=== PATIENT | female | born 1945 | race African-American/Black ===

== ENCOUNTER 2016-08-15 20:35 | Emergency (ER) | payer OTHER ==
[~2016-08-15] VITALS: Ht 165.1 cm; Wt 130.0 kg
[~2016-08-15 20:35] MED LIST: ASPI81TA82 PO; ATOR10TA PO; CARD240C6 PO; CLOP75 PO; FATHER JOHNS PO; FLUT1INH INH; GLIP5TAB8 PO; HYDR-3533 PO; HYDR200T42 PO; METF850 PO; NITR-29 PO; POTA-243 PO; PROT40TA PO; SUCR1TAB PO; TOLT4 PO; TYLE3 PO; ZOFR4TAB3 PO
[2016-08-15 20:38] VITALS: BP 169/85; PULSE 96; RESP 20; TEMP 98.2; O2SAT 98
[2016-08-15] MEDS ORDERED: HYDR200T3 PO (21:07)
[2016-08-15] MEDS ORDERED: GLIP5TAB8 PO (21:07)
[2016-08-15] MEDS ORDERED: SUCR1TAB PO (21:07)
[2016-08-15] MEDS ORDERED: CARD120T4 PO (21:07)
[2016-08-15] MEDS ORDERED: FLUT1INH INH (21:07)
[2016-08-15] MEDS ORDERED: DILT-48 PO (21:07)
[2016-08-15] MEDS ORDERED: PLAV75TA29 PO (21:07)
[2016-08-15] MEDS ORDERED: METF850T PO (21:07)
[2016-08-15] MEDS ORDERED: CYCLOBENZAPRINE HCL 10 MG TAB PO ONE (21:15)
[2016-08-15] MEDS ORDERED: ONDANSETRON HCL 4 MG/2 ML VIAL IV PUSH ONE (21:15)
[2016-08-15] MEDS ORDERED: MORPHINE SULFATE 4 MG/ML INJ IV PUSH ONE (21:15)
--- NOTE | 2016-08-15 21:19 | PD ---
HPI Chief Complaint: Pain: Acute or Chronic Time Seen by Provider: 20:49 Travel History International Travel<30 days: No Contact w/Intl Traveler<30days: No Traveled to known affect area: No History of Present Illness HPI The patient is 70 year old female who presents to the [facility] emergency department with a history of neck pain that she reports began at 10 PM when she awakened to switch her position. She reports that she rolls over to switch her position every 2 hours. The patient reports that she then noticed a mild headache at the back of her head and neck pain. She reports that it has gradually been getting worse throughout the day today. She reports that it waxes and wanes in severity when she takes her usual pain medication for arthritis. She cannot recall the name of her pain medication, however according to the record she has been on Tylenol 3 in the past. She reports the pain medicine has helped, as well as rubbing the area. She reports that she last took Tylenol 3 at 4 PM. The patient additionally on review of systems reports having a mild dry cough. She denies having any other congestion. She also reports on review systems having a wound on the left lateral thigh that spontaneously appeared on . She reports that it appeared to be a blister that popped. She reports that she has been keeping it covered. She reports that the drainage was clear. She is unsure whether the area is improving or not. The patient has a prior history of cerebrovascular accident with residual weakness of the right upper and right lower extremity. She uses a cane to assist her with walking. The patient also reports having a history of an aneurysm in 1988 or , however she cannot recall when she had the stroke. The patient is unsure whether she had coiling or clubbing of her aneurysm. She reports that she does take a baby aspirin daily basis as well as Plavix daily. She reports taking both of her medications earlier today. She denies having any new difficulty speaking or new weakness of her extremities. She denies having any numbness or tingling of her extremities that is new. She denies having any new facial droop or dizziness. She denies having any new vision changes. The patient denies any history of fever,congestion, chest pain, shortness of breath, abdominal pain, vomiting, diarrhea, urinary symptoms, or neurologic symptoms. [facility] Past Medical History Narrative Medical The patient's past medical history is significant for a cerebrovascular accident with residual weakness of the right upper and right lower extremity with mild aphasia according to the record, hypertension, rheumatoid arthritis, chronic pain, diabetes mellitus, history of peptic ulcer disease, history of a brain aneurysm, history of COPD. Hx Anticoagulant Therapy: Yes (METFORMIN) Arthritis: Yes Asthma: No Blood Disorders: No Anxiety: No Depression: No Heart Rhythm Problems: No Cancer: No High Cholesterol: No Chemotherapy: No Chest Pain: No Congestive Heart Failure: No COPD: Yes Cerebrovascular Accident: Yes (residual right sided weakness(uses cane)) Diabetes: Yes Patient Takes Glucophage: No Diminished Hearing: No GERD: No Glaucoma: No Genitourinary: No Headaches: No Hepatitis: No Hiatal Hernia: No Hypertension: Yes Immune Disorder: No Implanted Vascular Access Dvce: Yes Kidney Stones: No Neurologic: Yes (1999 WITH WEAKNESS ON RT SIDE ) Psychiatric: No Reproductive: No Immunizations Current: Yes Migraines: No Myocardial Infarction: No Radiation Therapy: No Renal Failure: No Seizures: No Sickle Cell Disease: No Sleep Apnea: No Thyroid Disease: No Ulcer: No Menopausal: Yes Past Surgical History Narrative Surgical The patient's past surgical history is significant for bilateral knee replacements, hysterectomy, right rotator cuff repair. Abdominal Surgery: No AICD: No Appendectomy: No Arteriovenous Shunt: No Cardiac Surgery: No Cholecystectomy: No Ear Surgery: No Endocrine Surgery: Yes Eye Surgery: Yes (RT CATARACT SURGERY WITH LENS IMPLANT) Genitourinary Surgery: No Gynecologic Surgery: Yes (HYSTERECTOMY) Hysterectomy: Yes Insulin Pump: No Joint Replacement: Yes (BILAT KNEE REPLACEMENT) Oral Surgery: No Pacemaker: No Thoracic Surgery: No Other Surgery: Yes Social History Alcohol Use: No Tobacco Use: No (quit 22 yrs ago) Substance Use: No Allergies-Medications (Allergen,Severity, Reaction): Coded Allergies: Aspirin (Verified Allergy, Intermediate, GI BLEED, 08/15/16) *MDRO Multi-Drug Resistant Organism (Verified Allergy, Unknown, 08/15/16) MRSA 08/2013 MRSA PCR screen positive - 10/06/15 Reported Meds & Prescriptions Reported Meds & Active Scripts Active Flexeril (Cyclobenzaprine HCl) 10 Mg Tab 10 Mg PO TID PRN Reported Metformin (Metformin HCl) 850 Mg Tab 850 Mg PO TID With a meal Diltiazem ER 24 HR 240 Mg Caper 240 Mg PO DAILY Cardizem (Diltiazem HCl) 120 Mg Tab 120 Mg PO QID Glipizide 5 Mg Tab 5 Mg PO DAILY Take 30 minutes before a meal Hydroxychloroquine (Hydroxychloroquine Sulfate) 200 Mg Tab 200 Mg PO DAILY Takw with food Breo Ellipta Inh (Fluticasone/Vilanterol) 100-25 Mcg/Act Inh 1 Puff INH DAILY Use daily at the same time. Plavix (Clopidogrel Bisulfate) 75 Mg Tab 75 Mg PO DAILY Sucralfate 1 Gm Tab 1 Gm PO QID on empty stomach [Father Rachel] 10 Ml PO Q4HR PRN Review of Systems Except as stated in HPI: all other systems reviewed are Neg General / Constitutional: No: Fever Eyes: No: Visual changes HENT: Positive: Neck Stiffness, Neck Pain, No: Headaches, Rhinorrhea, Congestion, Earache Cardiovascular: No: Chest Pain or Discomfort Respiratory: No: Shortness of Breath Gastrointestinal: No: Abdominal Pain Genitourinary: No: Dysuria Musculoskeletal: No: Pain Skin: Positive Rash Neurologic: Positive: Focal Abnormalities (chronic and no worse than usual), No: Weakness, Coordination Problem, Tremor, Change in Mentation, Slurred Speech , Incontinence, Sensory Disturbance Psychiatric: No: Depression Endocrine: No: Polydipsia Hematologic/Lymphatic: No: Easy Bruising Physical Exam Narrative General: The patient is a well-developed well-nourished female, uncomfortable appearing on arrival, reporting neck discomfort. Head and Neck exam: Head is normocephalic atraumatic. Eyes: EOMI, pupils are equal round and reactive to light. Nose: Midline septum with pink mucous membranes Mouth: Dentition unremarkable. Moist mucus membranes. Posterior oropharynx is not erythematous. No tonsillar hypertrophy. Uvula midline. Airway patent. Neck: No palpable lymphadenopathy. No nuchal rigidity. No thyromegaly. The patient reports having tenderness in the paraspinal muscles with decreased range of motion with turning her head, reportedly related to muscle pain. Cardiovascular: Regular rate and rhythm without murmurs, gallops, or rubs. Lungs: Clear to auscultation bilaterally. No wheezes, rhonchi, or rales. Abdomen: Soft, without tenderness to palpation in all 4 quadrants of the abdomen. No guarding, rebound, or rigidity. Normal bowel sounds are audible. No tenderness on palpation of McBurney's point. Extremities: No clubbing, cyanosis, or edema. 2+ pulses in all 4 extremities. The patient on examination of the left upper thigh is noted to have a Band-Aid in place. This was removed and the patient is noted to have an area of erythema and peeling skin with slight tenderness on palpation along with discoloration to the bandage from prior drainage. A wound culture was collected. There is no surrounding edema, minimal erythema. No warmth on palpation. No crepitus or step-off. Back: No spinous process tenderness to palpation. No costovertebral angle tenderness to palpation. Neurologic Exam: The patient is currently at her baseline for her neurologic exam according to her history, and according to the patient herself is providing her history. The patient has mild right upper and right lower extremity weakness from a prior stroke. The patient is oriented to person, place, time, and situation. The patient has no obvious difficulty speaking on exam. Skin Exam: No rash noted. Intact skin that is warm and dry. Data Data Last Documented VS Vital Signs Date Time Temp Pulse Resp B/P Pulse Ox O2 Delivery O2 Flow Rate FiO2 08/16/16 01:40 89 20 164/108 95 Nasal Cannula 2 08/15/16 20:38 98.2 Orders Electrocardiogram (08/15/16 21:06) Complete Blood Count With Diff (08/15/16 21:06) Comprehensive Metabolic Panel (08/15/16 21:06) Prothrombin Time / Inr (Pt) (08/15/16 21:06) Act Partial Throm Time (Ptt) (08/15/16 21:06) Lactic Acid Sepsis Protocol (08/15/16 21:06) Magnesium (Mg) (08/15/16 21:06) Urinalysis - C+S If Indicated (08/15/16 21:06) Blood Culture (08/15/16 21:06) Wound Culture And Gram Stain (08/15/16 21:06) Chest, Single Ap (08/15/16 21:06) Blood Glucose (08/15/16 21:06) Ecg Monitoring (08/15/16 21:06) Iv Access Insert/Monitor (08/15/16 21:06) Cath For Specimen (08/15/16 21:06) Oximetry (08/15/16 21:06) Oxygen Administration (08/15/16 21:06) Ct Brain W/O Iv Contrast(Rout) (08/15/16 21:06) Ct Cerv Spine W/O Contrast (08/15/16 21:06) C-Reactive Protein (Crp) (08/15/16 21:06) Thyroid Stimulating Hormone (08/15/16 21:06) Morphine Inj (Morphine Inj) (08/15/16 21:15) Ondansetron Inj (Zofran Inj) (08/15/16 21:15) Cyclobenzaprine (Flexeril) (08/15/16 21:15) Sodium Chlor 0.9% 1000 Ml Inj (Ns 1000 M (08/15/16 21:30) Sodium Chlor 0.9% 1000 Ml Inj (Ns 1000 M (08/15/16 23:00) Labs Laboratory Tests Test 08/15/16 08/15/16 08/16/16 21:30 22:22 00:46 White Blood Count 10.2 TH/MM3 Red Blood Count 4.13 MIL/MM3 Hemoglobin 11.2 GM/DL Hematocrit 34.5 % Mean Corpuscular Volume 83.5 FL Mean Corpuscular Hemoglobin 27.0 PG Mean Corpuscular Hemoglobin 32.3 % Concent Red Cell Distribution Width 16.4 % Platelet Count 473 TH/MM3 Mean Platelet Volume 7.9 FL Neutrophils (%) (Auto) 69.9 % Lymphocytes (%) (Auto) 17.4 % Monocytes (%) (Auto) 7.7 % Eosinophils (%) (Auto) 4.2 % Basophils (%) (Auto) 0.8 % Neutrophils # (Auto) 7.1 TH/MM3 Lymphocytes # (Auto) 1.8 TH/MM3 Monocytes # (Auto) 0.8 TH/MM3 Eosinophils # (Auto) 0.4 TH/MM3 Basophils # (Auto) 0.1 TH/MM3 CBC Comment DIFF FINAL Differential Comment Hematology Comments Prothrombin Time 11.1 SEC Prothromb Time International 1.0 RATIO Ratio Activated Partial 26.9 SEC Thromboplast Time Sodium Level 137 MEQ/L Potassium Level 3.6 MEQ/L Chloride Level 98 MEQ/L Carbon Dioxide Level 30.2 MEQ/L Anion Gap 9 MEQ/L Blood Urea Nitrogen 12 MG/DL Creatinine 0.84 MG/DL Estimat Glomerular Filtration 81 ML/MIN Rate Random Glucose 164 MG/DL Calcium Level 9.4 MG/DL Magnesium Level 1.4 MG/DL Total Bilirubin 0.2 MG/DL Aspartate Amino Transf 14 U/L (AST/SGOT) Alanine Aminotransferase 12 U/L (ALT/SGPT) Alkaline Phosphatase 156 U/L C-Reactive Protein 2.10 MG/DL Total Protein 7.8 GM/DL Albumin 3.1 GM/DL Thyroid Stimulating Hormone 1.670 uIU/ML 3rd Gen Lactic Acid Level 2.2 mmol/L 1.3 mmol/L Urine Color YELLOW Urine Turbidity CLEAR Urine pH 7.0 Urine Specific Archie 1.020 Urine Protein 30 mg/dL Urine Glucose (UA) NEG mg/dL Urine Ketones NEG mg/dL Urine Occult Blood NEG Urine Nitrite NEG Urine Bilirubin NEG Urine Urobilinogen 2.0 MG/DL Urine Leukocyte Esterase NEG Urine RBC 1 /hpf Urine WBC 1 /hpf Urine Squamous Epithelial 6 /hpf Cells Urine Mucus FEW /lpf Microscopic Urinalysis Comment CULT NOT INDICATED MDM Medical Decision Making Medical Screen Exam Complete: Yes Emergency Medical Condition: Yes Medical Record Reviewed: Yes Differential Diagnosis Neck pain related to rheumatoid arthritis, versus subarachnoid hemorrhage, versus meningitis, versus musculoskeletal strain Narrative Course During the course of the patients emergency department visit, the patients history, examination, and differential diagnosis were reviewed with the patient. The patient had IV access obtained and blood work sent for analysis. The patient was placed on a foil cutter with oximetry and blood pressure monitoring. An EKG was ordered. A CT scan of the head and neck was ordered. An EKG is done on arrival that shows a sinus rhythm heart rate of 96, nonspecific T-wave abnormalities. No acute ST segment elevation or depression. The patient was provided morphine 4 mg IV, Zofran for nausea. The patient was started on normal saline IV fluids. The patient was given Flexeril 10 mg by mouth 1. The patients laboratory studies were reviewed and remarkable for a CBC that is unremarkable. CMP is remarkable for a glucose of 164, magnesium 1.4, AST 14, alkaline phosphatase 156, C-reactive protein 2.10, albumin 3.1, TSH 1.67, PT PTT within normal limits, urinalysis unremarkable. Lactic acid was 2.2. This was repeated after a liter of normal saline IV fluids and was down to 1.3. Radiology studies were reviewed and remarkable for a chest x-ray that shows cardiomegaly and a hiatal hernia, no other acute abnormality. The patient was reexamined. The patient had increased range of motion of her neck. The patient's results were discussed with her. The patient will be discharged home to continue on her current pain medication that she cannot recall the name of, and she was additionally given a prescription for Flexeril to be taken as needed for muscle spasms. She was instructed regarding the importance of following up with her primary care physician in the next 2 days for reexamination for improvement. The patient is resting comfortably and feels better, is alert and in no distress. The patients results and examination findings were discussed with her. The repeat examination is unremarkable and benign. The history, exam, diagnostic testing, and current condition do not suggest any significant pathology to warrant further testing, continued ED treatment, admission, or surgical evaluation at this point. The vital signs have been stable. The patient does not have uncontrollable pain, intractable vomiting, or other significant symptoms. The patient's condition is stable and appropriate for discharge. The patient will pursue further outpatient evaluation with a primary care physician or other designated or consulting physician as indicated in the discharge instructions. The patient expressed understanding and was agreeable with this plan. Diagnosis Primary Impression: Neck pain Additional Impression: Muscle spasm Referrals: Primary Care Physician 2 days Patient Instructions: Arthritis (ED), General Instructions, Muscle Spasm (ED), Neck Pain (ED) Med/Other Pt SpecificInfo: Prescription(s) given Scripts Cyclobenzaprine (Flexeril)10 Mg Tab10 Mg PO TID PRN (SPASM) #12 TAB Ref 0 Prov:Jessa Gonzáles MD 08/16/16 Disposition: 01 DISCHARGE HOME Condition: Stable Jessa Gonzáles MD Aug 15, 2016 21:19
[2016-08-15] MEDS ORDERED: SODIUM CHLOR 0.9% 1000 ML INJ 1,000 ML IV SCH (21:30)
[2016-08-15 21:36] VITALS: BP 176/96; PULSE 94; RESP 20; O2SAT 98
--- NOTE | 2016-08-15 21:50 | RADRPT ---
EXAM DATE/TIME: 08/15/2016 21:23 [facility] COMPARISON: CHEST SINGLE AP, February 21, 2012, 6:20. CHEST SINGLE AP, October 05, 2015, 13:51. INDICATIONS : Cough. MEDICAL HISTORY : Hypertension. SURGICAL HISTORY : None. ENCOUNTER: Initial ACUITY: 1 week PAIN SCORE: 0/10 LOCATION: Bilateral chest FINDINGS: A single view of the chest demonstrates the lungs to be symmetrically aerated without evidence of mas s, infiltrate or effusion. Nodularity involving the right hilum is long-term stable and likely relate s to the patient's pulmonary vasculature. The heart is mildly enlarged. A retrocardiac density consis tent with a hiatal hernia. Osseous structures are intact. A right humeral head prosthesis. 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 CONCLUSION: 1. Cardiomegaly. 2. Hiatal hernia. Damion French Jr., MD on August 15, 2016 at 21:48 Board Certified Radiologist. This report was verified electronically.
--- NOTE | 2016-08-15 22:20 | RADRPT ---
EXAM DATE/TIME: 08/15/2016 21:51 [facility] COMPARISON: CT BRAIN W/O CONTRAST, October 05, 2015, 13:44. INDICATIONS : Headache with no known injury. RADIATION DOSE: 56.35 CTDIvol (mGy) MEDICAL HISTORY : Hypertension. Chronic obstructive pulmonary disease. Diabetes mellitus type 2. SURGICAL HISTORY : Hysterectomy. Total knee replacement, left.Total knee replacement, right. ENCOUNTER: Initial ACUITY: 1 day PAIN SCALE: 7/10 LOCATION: cranial TECHNIQUE: Multiple contiguous axial images were obtained of the head. Using automated exposure control and adj ustment of the mA and/or kV according to patient size, radiation dose was kept as low as reasonably a chievable to obtain optimal diagnostic quality images. FINDINGS: CEREBRUM: Periventricular low attenuation change involving both cerebral hemispheres. This also involves the in sular cortex on the left. Appearance is stable. Small chronic lacunar infarction involving the right thalamus. This is unchanged as well. The ventricles are normal for age. No evidence of midline shift , mass lesion, hemorrhage or acute infarction. No extra-axial fluid collections are seen. POSTERIOR FOSSA: The cerebellum and brainstem are intact. The 4th ventricle is midline. The cerebellopontine angle i s unremarkable. EXTRACRANIAL: The visualized portion of the orbits is intact. SKULL: The calvaria is intact. No evidence of skull fracture. CONCLUSION: 1. No acute intracranial abnormality. 2. Chronic small vessel ischemic change. Damion French Jr., MD on August 15, 2016 at 22:16 Board Certified Radiologist. This report was verified electronically.
--- NOTE | 2016-08-15 22:26 | RADRPT ---
EXAM DATE/TIME: 08/15/2016 21:51 [facility] COMPARISON: No previous studies available for comparison. INDICATIONS : Neck pain with no known injury. RADIATION DOSE: 38.51 CTDIvol (mGy) MEDICAL HISTORY : Hypertension. Chronic obstructive pulmonary disease. Diabetes mellitus type 2. SURGICAL HISTORY : Hysterectomy. Total knee replacement, left.Total knee replacement, right. ENCOUNTER: Initial ACUITY: 1 day PAIN SCALE: 7/10 LOCATION: neck TECHNIQUE: Volumetric scanning of the cervical spine was performed. Multiplanar reconstructions in the sagittal, coronal and oblique axial planes were performed. Using automated exposure control and adjustment o f the mA and/or kV according to patient size, radiation dose was kept as low as reasonably achievable to obtain optimal diagnostic quality images. FINDINGS: VERTEBRAE: Normal vertebral body height. ALIGNMENT: No evidence of subluxation. Straightening of the cervical spine noted. C2-C3: The bony spinal canal is normal in size. No evidence of disc bulge or herniation. The neural forami na are bilaterally patent. C3-C4: A mild broad-based disc bulge eccentric to the right chest touches the ventral portion of the cord. B sylvain uncovertebral hypertrophy without neural foraminal narrowing. C4-C5: A broad-based disc osteophyte complex flattens the ventral portion of the cord more pronounced toward s the right. Prominent bony uncovertebral hypertrophy noted degenerating narrowing of the right later al recess and both neural foramen. A small amount of air is seen within the left lateral recess as we ll as the disc space. This is felt to be degenerative in nature. C5-C6: A mild broad-based disc osteophyte complex flattens the ventral portion of the thecal sac and approac hes the ventral portion of the cord. There is narrowing of the right lateral recess and both neural f oramen. Bony uncovertebral hypertrophy. C6-C7: A central disc bulge. Abutment of the cord. Neural foramen are patent. C7-T1: The bony spinal canal is normal in size. No evidence of disc bulge or herniation. The neural forami na are bilaterally patent. CONCLUSION: 1. No fracture or dislocation. 2. Multilevel degenerative changes. Each level detailed in the above discussion. Damion French Jr., MD on August 15, 2016 at 22:18 Board Certified Radiologist. This report was verified electronically.
[2016-08-15 22:38] LABS: APTT (PATIENT) 26.9 SEC (24.3-30.1); PROTHROMBIN TIME - PATIENT 11.1 SEC (9.8-11.6)
[2016-08-15 22:47] LABS: BLOOD, URINE NEG (NEG); COMMENT (UR) CULT NOT INDICATED; CULTURE IF INDICATED CULT NOT INDICATED; GLUCOSE,URINE NEG (NEG); KETONE, URINE NEG (NEG); MUCUS URINE FEW /lpf (OCC); NITRITE,URINE NEG (NEG); SQUAMOUS EPITHELIAL CELL URINE 6 /hpf (0-5); URINE COLOR YELLOW (YELLW/STRAW)
[2016-08-15 22:50] LABS: ALKALINE PHOSPHATASE 156 U/L (45-117); ALT (GPT) 12 U/L (10-53); ANION GAP 9 MEQ/L (5-15); AST (GOT) 14 U/L (15-37); BICARBONATE 30.2 MEQ/L (21.0-32.0); BLOOD UREA NITROGEN 12 MG/DL (7-18); CHLORIDE 98 MEQ/L (98-107); GLOMERULAR FILTRATION RATE 81 ML/MIN (>89); MAGNESIUM 1.4 MG/DL (1.5-2.5); POTASSIUM 3.6 MEQ/L (3.5-5.1); SODIUM (NA) 137 MEQ/L (136-145); TOTAL BILIRUBIN ADULT 0.2 MG/DL (0.2-1.0)
[2016-08-15 22:55] LABS: AUTOMATED NEUTROPHIL # 7.1 TH/MM3 (1.8-7.7); BASOPHIL # 0.1 TH/MM3 (0-0.2); BASOPHIL % 0.8 % (0.0-2.0); EOSINOPHIL # 0.4 TH/MM3 (0-0.4); EOSINOPHIL % 4.2 % (0.0-4.0); HEMATOCRIT 34.5 % (35.0-46.0); LYMPH % 17.4 % (9.0-44.0); LYMPHOCYTE # 1.8 TH/MM3 (1.0-4.8); MEAN CELL VOLUME 83.5 FL (80.0-100.0); MEAN CORPUSCULAR HGB CONC 32.3 % (32.0-36.0); MONO % 7.7 % (0.0-8.0); NEUT % 69.9 % (16.0-70.0); PLATELET COUNT 473 TH/MM3 (150-450); RED BLOOD COUNT 4.13 MIL/MM3 (4.00-5.30); RED CELL DISTRIBUTION WIDTH 16.4 % (11.6-17.2); WHITE BLOOD COUNT 10.2 TH/MM3 (4.0-11.0)
[2016-08-15 22:56] LABS: HEMO FLAGS DIFF FINAL
[2016-08-15] MEDS ORDERED: SODIUM CHLOR 0.9% 1000 ML INJ 1,000 ML IV ONE (23:00)
[2016-08-15 23:05] VITALS: BP 163/83; PULSE 88; RESP 20; O2SAT 94
[2016-08-16 00:15] LABS: LACTIC ACID GHOST NOT REPORTABLE
[2016-08-16] MEDS ORDERED: CYCL1TAB29 PO (01:35)
[2016-08-16 01:40] VITALS: BP 164/108; PULSE 89; RESP 20; O2SAT 95
--- NOTE | 2016-08-16 18:26 | EKG ---
Date Performed: 08/15/2016 Time Performed: 21:27:18 PTAGE: 70 years EKG: Sinus rhythm NONSPECIFIC T-WAVE ABNORMALITY Since previous tracing, no significant change noted BORDERLINE ECG PREVIOUS TRACING 10/05/2015 @14.38.58 DOCTOR: Ladonna Arora Interpretating Date/Time 08/16/2016 18:25:38
== END 2016-08-16 02:23 | disposition home or self-care (01) ==
LOC: NEPE 20:35
DX: M62.838 Other muscle spasm (principal); S70.322A Blister (nonthermal), left thigh, initial encounter; Z79.01 Long term (current) use of anticoagulants; E11.9 Type 2 diabetes mellitus without complications; J44.9 Chronic obstructive pulmonary disease, unspecified; Z86.73 Personal history of transient ischemic attack (TIA), and cerebral infarction without residual deficits; B95.62 Methicillin resistant Staphylococcus aureus infection as the cause of diseases classified elsewhere
CPT/HCPCS: 70450; 71010; 72125; 80053; 81001; 83605; 83735; 84443; 85025; 85610; 85730; 86140; 86403; 87040; 87070; 87186; 93005; 96361; 96374; 96375; 99284; J2270; J2405; J7030; 87205

== ENCOUNTER 2016-10-11 13:38 | Inpatient (IN) | payer OTHER, MEDICARE ==
[~2016-10-11] VITALS: Ht 170.2 cm; Wt 105.8 kg
[2016-10-11] VITALS (7 sets, daily range): BP systolic 130–159; BP diastolic 65–110; PULSE 81–101; RESP 16–25; TEMP 97.7–98.8; O2SAT 93–98
[2016-10-11] MEDS: INSULIN NovoLIN REGULAR SUPPLEMENTAL SCALE SQ SCH
[~2016-10-11 13:38] MED LIST changes: -ASPI81TA82 PO; -ATOR10TA PO; +CARD120T4 PO; -CARD240C6 PO; -CLOP75 PO; +CYCL1TAB29 PO; +DILT-48 PO; -HYDR-3533 PO; +HYDR200T3 PO; -HYDR200T42 PO; -METF850 PO; +METF850T PO; -NITR-29 PO; +PLAV75TA29 PO; -POTA-243 PO; -PROT40TA PO; -TOLT4 PO; -TYLE3 PO; -ZOFR4TAB3 PO
--- NOTE | 2016-10-11 14:43 | PD ---
HPI Chief Complaint: GI Complaint Time Seen by Provider: 14:35 Travel History International Travel<30 days: No Contact w/Intl Traveler<30days: No Traveled to known affect area: No History of Present Illness HPI 71-year-old female presents with her grandson for evaluation of nausea and vomiting. The patient reports that yesterday she felt fine. In the middle night she developed some nausea and then today she vomited. She reports 4 episodes of emesis today, dark red in color, concern for hematemesis. She is currently mildly nauseous. She denies any abdominal pain, chest pain or shortness of breath, dizziness or lightheadedness, diarrhea, melena, hematochezia. The grandson who is with her does report that several years ago that she was told she has peptic ulcer disease. She reports that she is on a blood thinner but she does not remember the name of it. She denies any dietary indiscretions. She has no other complaints. Her primary care physician is Dr. Carmichael. 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)) Diabetes: Yes Diminished Hearing: No GERD: No Glaucoma: No Genitourinary: No Headaches: No Hepatitis: No Hiatal Hernia: No Hypertension: Yes Immune Disorder: No Implanted Vascular Access Dvce: Yes Kidney Stones: No Neurologic: Yes (1999 WITH WEAKNESS ON RT SIDE ) Psychiatric: No Reproductive: No Immunizations Current: Yes Migraines: No Myocardial Infarction: No Radiation Therapy: No Renal Failure: No Seizures: No Sickle Cell Disease: No Sleep Apnea: No Thyroid Disease: No Ulcer: No Menopausal: Yes Past Surgical History Abdominal Surgery: No AICD: No Appendectomy: No Arteriovenous Shunt: No Cardiac Surgery: No Cholecystectomy: No Ear Surgery: No Endocrine Surgery: Yes Eye Surgery: Yes (RT CATARACT SURGERY WITH LENS IMPLANT) Genitourinary Surgery: No Gynecologic Surgery: Yes (HYSTERECTOMY) Hysterectomy: Yes Insulin Pump: No Joint Replacement: Yes (BILAT KNEE REPLACEMENT) Oral Surgery: No Pacemaker: No Thoracic Surgery: No Other Surgery: Yes Social History Alcohol Use: No Tobacco Use: No (quit 22 yrs ago) Substance Use: No Allergies-Medications (Allergen,Severity, Reaction): Coded Allergies: Aspirin (Verified Allergy, Intermediate, GI BLEED, 10/11/16) *MDRO Multi-Drug Resistant Organism (Verified Allergy, Unknown, 10/11/16) 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 Plavix (Clopidogrel Bisulfate) 75 Mg Tab 75 Mg PO DAILY Sucralfate 1 Gm Tab 1 Gm PO QID on empty stomach [Father Rachel] 10 Ml PO Q4HR PRN Review of Systems Except as stated in HPI: all other systems reviewed are Neg Physical Exam Narrative GENERAL: Well-developed well-nourished female in no acute distress SKIN: Warm and dry. HEAD: Atraumatic. Normocephalic. EYES: Pupils equal and round. No scleral icterus. No injection or drainage. ENT: No nasal bleeding or discharge. Mucous membranes pink and moist. NECK: Trachea midline. No JVD. CARDIOVASCULAR: Regular rate and rhythm. No murmur appreciated. RESPIRATORY: No accessory muscle use. Clear to auscultation. Breath sounds equal bilaterally. GASTROINTESTINAL: Abdomen soft, non-tender, nondistended. Hepatic and splenic margins not palpable. MUSCULOSKELETAL: No obvious deformities. No clubbing. No cyanosis. No edema. NEUROLOGICAL: Awake and alert. No obvious cranial nerve deficits. Motor grossly within normal limits. flattening of the right facial nasolabial folds secondary to previous CVA. Normal speech. 4-5 muscle strength in the right upper and lower extremity secondary to previous CVA. PSYCHIATRIC: Appropriate mood and affect; insight and judgment normal. Data Data Last Documented VS Vital Signs Date Time Temp Pulse Resp B/P Pulse Ox O2 Delivery O2 Flow Rate FiO2 10/11/16 14:26 98.4 95 19 130/67 95 Room Air Orders Complete Blood Count With Diff (10/11/16 14:43) Comprehensive Metabolic Panel (10/11/16 14:43) Prothrombin Time / Inr (Pt) (10/11/16 14:43) Act Partial Throm Time (Ptt) (10/11/16 14:43) Type And Screen (10/11/16 14:43) Labs Laboratory Tests Test 10/11/16 14:40 White Blood Count 11.1 TH/MM3 Red Blood Count 2.95 MIL/MM3 Hemoglobin 8.0 GM/DL Hematocrit 25.5 % Mean Corpuscular Volume 86.3 FL Mean Corpuscular Hemoglobin 27.1 PG Mean Corpuscular Hemoglobin 31.4 % Concent Red Cell Distribution Width 17.5 % Platelet Count 339 TH/MM3 Mean Platelet Volume 7.8 FL Neutrophils (%) (Auto) 83.0 % Lymphocytes (%) (Auto) 10.3 % Monocytes (%) (Auto) 5.0 % Eosinophils (%) (Auto) 1.0 % Basophils (%) (Auto) 0.7 % Neutrophils # (Auto) 9.2 TH/MM3 Lymphocytes # (Auto) 1.1 TH/MM3 Monocytes # (Auto) 0.6 TH/MM3 Eosinophils # (Auto) 0.1 TH/MM3 Basophils # (Auto) 0.1 TH/MM3 CBC Comment DIFF FINAL Differential Comment Prothrombin Time 11.4 SEC Prothromb Time International 1.0 RATIO Ratio Activated Partial 22.8 SEC Thromboplast Time Sodium Level 142 MEQ/L Potassium Level 3.6 MEQ/L Chloride Level 105 MEQ/L Carbon Dioxide Level 29.0 MEQ/L Anion Gap 8 MEQ/L Blood Urea Nitrogen 34 MG/DL Creatinine 0.74 MG/DL Estimat Glomerular Filtration 94 ML/MIN Rate Random Glucose 95 MG/DL Calcium Level 9.4 MG/DL Total Bilirubin 0.3 MG/DL Aspartate Amino Transf 6 U/L (AST/SGOT) Alanine Aminotransferase 11 U/L (ALT/SGPT) Alkaline Phosphatase 140 U/L Total Protein 6.8 GM/DL Albumin 3.3 GM/DL MDM Medical Decision Making Medical Screen Exam Complete: Yes Emergency Medical Condition: Yes Medical Record Reviewed: Yes Differential Diagnosis Upper GI bleed, lower GI bleed, gastroenteritis, dehydration Narrative Course 71-year-old female with 4 episodes of emesis this morning, dark red in color, history of peptic ulcer disease. The patient was initially seen in triage. Workup was initiated. She will be moved to medical bed when one becomes available. Terrell Yanez Oct 11, 2016 14:43
[2016-10-11 15:12] LABS: AUTOMATED NEUTROPHIL # 9.2 TH/MM3 (1.8-7.7); BASOPHIL # 0.1 TH/MM3 (0-0.2); BASOPHIL % 0.7 % (0.0-2.0); EOSINOPHIL # 0.1 TH/MM3 (0-0.4); HEMATOCRIT 25.5 % (35.0-46.0); HEMO FLAGS DIFF FINAL; LYMPH % 10.3 % (9.0-44.0); LYMPHOCYTE # 1.1 TH/MM3 (1.0-4.8); MEAN CELL VOLUME 86.3 FL (80.0-100.0); MEAN CORPUSCULAR HEMOGLOBIN 27.1 PG (27.0-34.0); MEAN CORPUSCULAR HGB CONC 31.4 % (32.0-36.0); PLATELET COUNT 339 TH/MM3 (150-450); RED BLOOD COUNT 2.95 MIL/MM3 (4.00-5.30); RED CELL DISTRIBUTION WIDTH 17.5 % (11.6-17.2); WHITE BLOOD COUNT 11.1 TH/MM3 (4.0-11.0)
[2016-10-11 15:26] LABS: APTT (PATIENT) 22.8 SEC (24.3-30.1); PROTHROMBIN TIME - PATIENT 11.4 SEC (9.8-11.6)
[2016-10-11 15:27] LABS: ALT (GPT) 11 U/L (10-53); ANION GAP 8 MEQ/L (5-15); AST (GOT) 6 U/L (15-37); BLOOD UREA NITROGEN 34 MG/DL (7-18); CHLORIDE 105 MEQ/L (98-107); GLOMERULAR FILTRATION RATE 94 ML/MIN (>89); POTASSIUM 3.6 MEQ/L (3.5-5.1); SODIUM (NA) 142 MEQ/L (136-145)
[2016-10-11 15:29] LABS: ALKALINE PHOSPHATASE 140 U/L (45-117); TOTAL BILIRUBIN ADULT 0.3 MG/DL (0.2-1.0)
[2016-10-11] MEDS ORDERED: SODIUM CHLOR 0.9% 250 ML INJ 250 ML IV ONE (15:45)
--- NOTE | 2016-10-11 15:46 | PD ---
Physical Exam Time Seen by Provider: 15:46 Narrative Patient seen by provider in triage and initiated workup, please see his documentation. 71-year-old female with a history of hypertension, hyperlipidemia, diabetes, CVA, peptic ulcer disease presents to the emergency department with her grandson for evaluation of nausea and vomiting. Patient states that last night and this morning she felt very nauseous and that about noon today she had 4 episodes of emesis with dark red blood. States that since then she has still felt nauseous but had no further episodes of vomiting. She denies abdominal pain, diarrhea, constipation, bloody stool, black stool, chest pain, shortness of breath, lightheadedness, dizziness. She does take Plavix. She had a history of GI bleed in the past about [address] Carmichael. GENERAL: Well-nourished and well-developed pleasant female patient in no acute distress. SKIN: Warm and dry. HEAD: Normocephalic and atraumatic. EYES: No injection, drainage, or hyphema noted. PERRLA. EOMI. ENT: No nasal drainage noted. Oropharynx is clear. NECK: Supple and the trachea is midline. CARDIOVASCULAR: Regular rate and rhythm. RESPIRATORY: Breath sounds are equal bilaterally with no accessory muscle use, wheezing, rhonchi, or crackles. GASTROINTESTINAL: Abdomen is soft, non-tender, and nondistended. MUSCULOSKELETAL: No obvious deformities, swelling, cyanosis, or ecchymosis is present throughout the upper and lower extremities. Patient has full range of motion without any signs of neurovascular compromise. RECTAL EXAM: No masses or tenderness, stool is black. Performed in the presence of Paula MANN. NEUROLOGICAL: Awake, alert, and oriented. Normal speech and gait. Cranial nerves are grossly intact. Data Data Last Documented VS Vital Signs Date Time Temp Pulse Resp B/P Pulse Ox O2 Delivery O2 Flow Rate FiO2 10/11/16 15:34 101 19 153/84 97 Room Air 10/11/16 14:26 98.4 Orders Complete Blood Count With Diff (10/11/16 14:43) Comprehensive Metabolic Panel (10/11/16 14:43) Prothrombin Time / Inr (Pt) (10/11/16 14:43) Act Partial Throm Time (Ptt) (10/11/16 14:43) Type And Screen (10/11/16 14:43) Red Blood Cells (Rbc) (10/11/16 15:44) Blood Product Administration .UPON TRANSFUSION (10/11/16 15:44) Sodium Chlor 0.9% 250 Ml Inj (Ns 250 Ml (10/11/16 15:45) Iv Access Insert/Monitor (10/11/16 15:51) Ondansetron Inj (Zofran Inj) (10/11/16 16:00) Sodium Chlor 0.9% 1000 Ml Inj (Ns 1000 M (10/11/16 15:51) Sodium Chloride 0.9% Flush (Ns Flush) (10/11/16 16:00) Pantoprazole Inj (Protonix Inj) (10/11/16 16:00) Pantoprazole Inj (Protonix Inj) (10/11/16 16:00) NPO (10/11/16 16:03) Consult Gastroenterology (10/11/16 ) Labs Laboratory Tests Test 10/11/16 10/11/16 10/11/16 14:40 14:55 15:53 White Blood Count 11.1 TH/MM3 Red Blood Count 2.95 MIL/MM3 Hemoglobin 8.0 GM/DL Hematocrit 25.5 % Mean Corpuscular Volume 86.3 FL Mean Corpuscular Hemoglobin 27.1 PG Mean Corpuscular Hemoglobin 31.4 % Concent Red Cell Distribution Width 17.5 % Platelet Count 339 TH/MM3 Mean Platelet Volume 7.8 FL Neutrophils (%) (Auto) 83.0 % Lymphocytes (%) (Auto) 10.3 % Monocytes (%) (Auto) 5.0 % Eosinophils (%) (Auto) 1.0 % Basophils (%) (Auto) 0.7 % Neutrophils # (Auto) 9.2 TH/MM3 Lymphocytes # (Auto) 1.1 TH/MM3 Monocytes # (Auto) 0.6 TH/MM3 Eosinophils # (Auto) 0.1 TH/MM3 Basophils # (Auto) 0.1 TH/MM3 CBC Comment DIFF FINAL Differential Comment Prothrombin Time 11.4 SEC Prothromb Time International 1.0 RATIO Ratio Activated Partial 22.8 SEC Thromboplast Time Sodium Level 142 MEQ/L Potassium Level 3.6 MEQ/L Chloride Level 105 MEQ/L Carbon Dioxide Level 29.0 MEQ/L Anion Gap 8 MEQ/L Blood Urea Nitrogen 34 MG/DL Creatinine 0.74 MG/DL Estimat Glomerular Filtration 94 ML/MIN Rate Random Glucose 95 MG/DL Calcium Level 9.4 MG/DL Total Bilirubin 0.3 MG/DL Aspartate Amino Transf 6 U/L (AST/SGOT) Alanine Aminotransferase 11 U/L (ALT/SGPT) Alkaline Phosphatase 140 U/L Total Protein 6.8 GM/DL Albumin 3.3 GM/DL Blood Type AB POSITIVE Antibody Screen NEGATIVE Crossmatch Leukocyte-Reduced Red Blood Cells Blood Bank Comment MDM Supervised Visit with JODI: No Differential Diagnosis GI bleed versus upper versus lower versus anemia versus gastroenteritis Narrative Course 71-year-old female presents to the emergency department for evaluation of nausea and vomiting with hematemesis for 1 day. Patient is afebrile, she is slightly tachycardic with a heart rate of around 100 bpm. Otherwise vital signs are stable. Physical exam reveals dark black stool that is guaiac positive. On her jeans she has vomit that is dark red. Labs were ordered by provider in triage. CBC shows anemia with a hemoglobin of 8.0, hematocrit 25.5. Last month the patient's hemoglobin was 11.2. Platelets are within normal limits. CMP is unremarkable. Coags are unremarkable. Patient is administered a Protonix bolus and drip with 2 units of PRBCs. This is a GI bleed with a significant drop in hemoglobin from last month. The patient is hemodynamically stable. She'll be admitted to intensive his service with gastroenterology consult. I discussed the case with my attending physician Dr. Luna who is aware of the patients history, physical examination findings, and treatment plan. HemaPrompt Test Point of Care Internal Pos. & Neg. Controls: Passed Fecal Specimen Occult Blood: Positive Physician Communication Physician Communication I spoke with Dr. Rico retail reset merchandiser who requests patient NPO and will consult on the patient. I spoke with Dr. Cruz planning feeder who called on behalf of Dr. Galarza who agrees to accept the patient under Dr. Galarza's service. Diagnosis Primary Impression: GI bleed Qualified Code: K92.2 - Gastrointestinal hemorrhage, unspecified gastrointestinal hemorrhage type Additional Impression: Anemia due to acute blood loss Admitting Information Admitting Physician Requests: Admit Jennifer Martinez Oct 11, 2016 15:46
[2016-10-11] MEDS ORDERED: SODIUM CHLOR 0.9% 1000 ML INJ 1,000 ML IV SCH (15:51)
[2016-10-11] MEDS ORDERED: SODIUM CHLORIDE 0.9% FLUSH 5 ML FLUSH IVF PRN (16:00)
[2016-10-11] MEDS ORDERED: ONDANSETRON HCL 4 MG/2 ML VIAL IVP ONE (16:00)
[2016-10-11] MEDS ORDERED: PANTOPRAZOLE INJ 80 MG in SODIUM CHLORIDE 0.9% INJ 35 ML IV ONE (16:00)
[2016-10-11] MEDS ORDERED: PANTOPRAZOLE INJ 80 MG in SODIUM CHLORIDE 0.9% INJ 100 ML IV SCH (16:00)
[2016-10-11] MEDS ORDERED: ACET-703 PO (16:11)
[2016-10-11] MEDS ORDERED: LINA145C PO (16:11)
[2016-10-11] MEDS ORDERED: MOBI15TA PO (16:11)
[2016-10-11] MEDS ORDERED: LIPI10TA PO (16:11)
[2016-10-11] MEDS ORDERED: TIZA4CAP3 PO (16:11)
[2016-10-11] MEDS ORDERED: TOLT1CAP PO (16:11)
[2016-10-11] MEDS ORDERED: CELE20TA PO (16:11)
[2016-10-11] MEDS ORDERED: LOSA50TA PO (16:11)
--- NOTE | 2016-10-11 16:43 | PD ---
Physical Exam Date Seen by Provider: Oct 11, 2016 Time Seen by Provider: 16:37 Narrative 71-year-old female was brought to the emergency room with history of upper GI bleeding. This started about 30-40 minutes prior to patient coming to the emergency room. Episode of bright red bloody emesis. Patient was seen by the provided in triage and workup was initiated. She was after that seen by the PA who I'm supervising. Patient did not have any hematemesis or hematochezia while she is been in the emergency room. However there is some dried blood which she said was her emesis on her clothes from earlier. She was seen by the PA and I'm supervising her. Her blood test results were back and her hemoglobin and hematocrit had dropped significantly from the last month's comparison. There was a stool Hemoccult done by the PA which was grossly back in color. Patient is on Plavix. She was started on Protonix bolus and drip and 2 units of PRBC was ordered for transfusion. Case was discussed by the PA with the GI specialist who recommended ICU admission. He agreed with all the rest of the plan. The plan is to get an upper endoscopy done on this patient. I spoke with the patient. She appears to be sitting comfortably on the stretcher but looks pale. She is currently hemodynamically stable. I explained to her the plan and she understands. Data Data Last Documented VS Vital Signs Date Time Temp Pulse Resp B/P Pulse Ox O2 Delivery O2 Flow Rate FiO2 10/11/16 15:34 101 19 153/84 97 Room Air 10/11/16 14:26 98.4 Orders Complete Blood Count With Diff (10/11/16 14:43) Comprehensive Metabolic Panel (10/11/16 14:43) Prothrombin Time / Inr (Pt) (10/11/16 14:43) Act Partial Throm Time (Ptt) (10/11/16 14:43) Type And Screen (10/11/16 14:43) Red Blood Cells (Rbc) (10/11/16 15:44) Blood Product Administration .UPON TRANSFUSION (10/11/16 15:44) Sodium Chlor 0.9% 250 Ml Inj (Ns 250 Ml (10/11/16 15:45) Iv Access Insert/Monitor (10/11/16 15:51) Ondansetron Inj (Zofran Inj) (10/11/16 16:00) Sodium Chlor 0.9% 1000 Ml Inj (Ns 1000 M (10/11/16 15:51) Sodium Chloride 0.9% Flush (Ns Flush) (10/11/16 16:00) Pantoprazole Inj (Protonix Inj) (10/11/16 16:00) Pantoprazole Inj (Protonix Inj) (10/11/16 16:00) NPO (10/11/16 16:03) Consult Gastroenterology (10/11/16 ) Admit Order (Ed Use Only) (10/11/16 16:11) Labs Laboratory Tests Test 10/11/16 10/11/16 10/11/16 14:40 14:55 15:53 White Blood Count 11.1 TH/MM3 Red Blood Count 2.95 MIL/MM3 Hemoglobin 8.0 GM/DL Hematocrit 25.5 % Mean Corpuscular Volume 86.3 FL Mean Corpuscular Hemoglobin 27.1 PG Mean Corpuscular Hemoglobin 31.4 % Concent Red Cell Distribution Width 17.5 % Platelet Count 339 TH/MM3 Mean Platelet Volume 7.8 FL Neutrophils (%) (Auto) 83.0 % Lymphocytes (%) (Auto) 10.3 % Monocytes (%) (Auto) 5.0 % Eosinophils (%) (Auto) 1.0 % Basophils (%) (Auto) 0.7 % Neutrophils # (Auto) 9.2 TH/MM3 Lymphocytes # (Auto) 1.1 TH/MM3 Monocytes # (Auto) 0.6 TH/MM3 Eosinophils # (Auto) 0.1 TH/MM3 Basophils # (Auto) 0.1 TH/MM3 CBC Comment DIFF FINAL Differential Comment Prothrombin Time 11.4 SEC Prothromb Time International 1.0 RATIO Ratio Activated Partial 22.8 SEC Thromboplast Time Sodium Level 142 MEQ/L Potassium Level 3.6 MEQ/L Chloride Level 105 MEQ/L Carbon Dioxide Level 29.0 MEQ/L Anion Gap 8 MEQ/L Blood Urea Nitrogen 34 MG/DL Creatinine 0.74 MG/DL Estimat Glomerular Filtration 94 ML/MIN Rate Random Glucose 95 MG/DL Calcium Level 9.4 MG/DL Total Bilirubin 0.3 MG/DL Aspartate Amino Transf 6 U/L (AST/SGOT) Alanine Aminotransferase 11 U/L (ALT/SGPT) Alkaline Phosphatase 140 U/L Total Protein 6.8 GM/DL Albumin 3.3 GM/DL Blood Type AB POSITIVE Antibody Screen NEGATIVE Crossmatch Leukocyte-Reduced Red Blood Cells Blood Bank Comment MDM Supervised Visit with JODI: Yes Critical Care Narrative Aggregate critical care time was 30 minutes. Time to perform other separately billable procedures was not included in the critical care time. My time did not include minutes spent treating any other patients simultaneously or on activities that did not directly contribute to the patient's treatment. The services I provided to this patient were to treat and/or prevent clinically significant deterioration that could result in: Protonix bolus and drip, PRBC transfusion, GI bleed I provided critical care services requiring my management, as noted below: Chart data review, documentation time, medication orders and management, vital sign assessments/reviewing monitor data, ordering and reviewing lab tests, ordering and interpreting/reviewing x-rays and diagnostic studies, care of the patient and discussion of the patient with the admitting physicians. Diagnosis Primary Impression: GI bleed Qualified Code: K92.2 - Gastrointestinal hemorrhage, unspecified gastrointestinal hemorrhage type Additional Impression: Anemia due to acute blood loss Scripts Metformin 500 Mg [id number] Mg PO DAILY #30 TAB Ref 0 With a meal Prov:Gurinder Fatima MD 10/14/16 Pantoprazole 40 Mg Tab40 Mg PO Q12HR #60 TAB Prov:Gurinedr Fatima MD 10/14/16 Jeffrey Luna MD Oct 11, 2016 16:43
--- NOTE | 2016-10-11 16:57 | PD.CONS ---
HPI History of Present Illness This is a 71 year old female patient with a history of a CVA and rheumatoid arthritis on Plavix, meloxicam, Plaquenil at home. She came to the emergency room for evaluation of hematemesis. She reports that yesterday evening she did feel a little lightheaded but states it was mild and she went to bed thinking she was just tired. This morning around 10:00 she had some bread pudding milk. Then around noon she had 2 episodes of vomiting a large amount of dark red blood. There are no aggravating or alleviating factors. She denies any associated abdominal pain and is not currently having any nausea or vomiting. She denies any heartburn, decreased appetite, weight loss, constipation, diarrhea, melena, or hematochezia. She does report that she hasn't had a bowel movement in 2 days. She does not take any additional NSAIDs such as Aleve or ibuprofen. She does not drink any alcohol. She does have a history of peptic ulcer disease. Her last EGD (04/21/10) revealed gastritis in the antrum, ulcer in the antrum, normal duodenal folds, a hiatal hernia. Pathology revealed duodenal mucosa with no pathologic diagnostic changes, no evidence of celiac disease, mild chronic active gastritis, negative for H. pylori, AB PAS for intestinal metaplasia was normal. Her last colonoscopy was (03/24/07) was a normal colonoscopy by Dr. Hudson and it was recommended that she have a repeat in 10 years. (Kamryn Wright) PFSH Past Medical History Chronic anemia Gastric ulcer Hypertension Hyperactivity of the bladder Hyperlipidemia Hepatomegaly Morbid obesity Osteoarthritis Rheumatoid arthritis History of thrombocytopenia History CVA COPD History of aneurysm Diabetes Past Surgical History Hysterectomy Right rotator cuff repair Bilateral knee replacement EGD Colonoscopy (Kamryn Wright) Coded Allergies: Aspirin (Verified Allergy, Intermediate, GI BLEED, 10/11/16) *MDRO Multi-Drug Resistant Organism (Verified Allergy, Unknown, 10/11/16) MRSA 08/2013 MRSA PCR screen positive - 10/06/15; MRSA (leg-08/15/16) Medications Allergies Coded Allergies Type Severity Reaction Last Updated Verified Aspirin Allergy Intermediate GI BLEED 10/11/16 Yes *MDRO Multi-Drug Resistant Organism Allergy Unknown 10/11/16 Yes Active Scripts Medications Dose Route/Sig Days Date Category Dose Instructions Mobic (Meloxicam) 15 Mg Tab 15 Mg PO DAILY 10/11/16 Reported Tizanidine (Tizanidine HCl) 4 Mg Cap 4 Mg PO BID PRN 10/11/16 Reported Losartan (Losartan Potassium) 50 Mg Tab 50 Mg PO DAILY 10/11/16 Reported Tylenol Extra Strength (Acetaminophen) 500 Mg Tab 500-1,000 Mg PO Q4-6H PRN 10/11/16 Reported Tolterodine ER (Tolterodine Tartrate) 4 Mg Cap 4 Mg PO DAILY 10/11/16 Reported Lipitor (Atorvastatin Calcium) 10 Mg Tab 10 Mg PO HS 10/11/16 Reported Linzess (Linaclotide) 145 Mcg Cap 145 Mcg PO DAILY 10/11/16 Reported Celexa (Citalopram Hydrobromide) 20 Mg Tab 20 Mg PO DAILY 10/11/16 Reported Metformin (Metformin HCl) 850 Mg Tab 850 Mg PO TID 08/15/16 Reported With a meal Diltiazem ER 24 HR 240 Mg Caper 240 Mg PO DAILY 08/15/16 Reported Glipizide 5 Mg Tab 5 Mg PO HS 08/15/16 Reported Take 30 minutes before a meal Hydroxychloroquine (Hydroxychloroquine Sulfate) 200 Mg Tab 200 Mg PO DAILY 08/15/16 Reported Takw with food Plavix (Clopidogrel Bisulfate) 75 Mg Tab 75 Mg PO DAILY 08/15/16 Reported Sucralfate 1 Gm Tab 1 Gm PO QID 08/15/16 Reported on empty stomach [Father Rachel] 10 Ml PO Q4HR PRN 08/09/15 Reported Family History Sister from lung cancer Social History Quit smoking in 1995 or 1996. No alcohol use (Kamryn Wright) Review of Systems Constitutional: COMPLAINS OF: Fatigue, Dizziness, DENIES: Weight loss, Change in appetite Respiratory: DENIES: Cough, Shortness of breath Cardiovascular: DENIES: Chest pain Gastrointestinal: COMPLAINS OF: Nausea, Vomiting, Hematemesis, DENIES: Abdominal pain, Black stools, Bloody stools, Constipation, Diarrhea, Swelling of Abdomen, Heartburn Musculoskeletal: COMPLAINS OF: Joint pain Integumentary: DENIES: Rash Neurologic: DENIES: Headache Psychiatric: DENIES: Confusion (Kamryn Wright) GI Exam Vitals I&O Vital Signs Date Time Temp Pulse Resp B/P Pulse Ox O2 Delivery O2 Flow Rate FiO2 10/11/16 15:34 101 19 153/84 97 Room Air 10/11/16 14:26 98.4 95 19 130/67 95 Room Air Laboratory Test 10/11/16 10/11/16 10/11/16 14:40 14:55 15:53 White Blood Count 11.1 TH/MM3 Red Blood Count 2.95 MIL/MM3 Hemoglobin 8.0 GM/DL Hematocrit 25.5 % Mean Corpuscular Volume 86.3 FL Mean Corpuscular Hemoglobin 27.1 PG Mean Corpuscular Hemoglobin 31.4 % Concent Red Cell Distribution Width 17.5 % Platelet Count 339 TH/MM3 Mean Platelet Volume 7.8 FL Neutrophils (%) (Auto) 83.0 % Lymphocytes (%) (Auto) 10.3 % Monocytes (%) (Auto) 5.0 % Eosinophils (%) (Auto) 1.0 % Basophils (%) (Auto) 0.7 % Neutrophils # (Auto) 9.2 TH/MM3 Lymphocytes # (Auto) 1.1 TH/MM3 Monocytes # (Auto) 0.6 TH/MM3 Eosinophils # (Auto) 0.1 TH/MM3 Basophils # (Auto) 0.1 TH/MM3 CBC Comment DIFF FINAL Differential Comment Prothrombin Time 11.4 SEC Prothromb Time International 1.0 RATIO Ratio Activated Partial 22.8 SEC Thromboplast Time Sodium Level 142 MEQ/L Potassium Level 3.6 MEQ/L Chloride Level 105 MEQ/L Carbon Dioxide Level 29.0 MEQ/L Anion Gap 8 MEQ/L Blood Urea Nitrogen 34 MG/DL Creatinine 0.74 MG/DL Estimat Glomerular Filtration 94 ML/MIN Rate Random Glucose 95 MG/DL Calcium Level 9.4 MG/DL Total Bilirubin 0.3 MG/DL Aspartate Amino Transf 6 U/L (AST/SGOT) Alanine Aminotransferase 11 U/L (ALT/SGPT) Alkaline Phosphatase 140 U/L Total Protein 6.8 GM/DL Albumin 3.3 GM/DL Blood Type AB POSITIVE Antibody Screen NEGATIVE Crossmatch Leukocyte-Reduced Red Blood Cells Blood Bank Comment Physical Examination HEENT: Normocephalic; atraumatic; no jaundice. CHEST: CTA. CARDIAC: Tachycardia ABDOMEN: Soft, nondistended, nontender; no hepatosplenomegaly; bowel sounds are present in all four quadrants. EXTREMITIES: No clubbing, cyanosis, or edema. SKIN: Normal; no rash; no jaundice. TECHNICAL MGR: No focal deficits; alert and oriented times three. (Kamryn Wright) Assessment and Plan Plan ASSESSMENT: - Upper GIB with hematemesis. Patient with a history of peptic ulcer disease. Currently taking meloxicam, Plavix, Plaquenil. Had 2 episodes of hematemesis consisting of a large amount of dark red blood today around noon. EGD (04/21/10) revealed gastritis in the antrum, ulcer in the antrum, normal duodenal folds, a hiatal hernia. Pathology revealed duodenal mucosa with no pathologic diagnostic changes, no evidence of celiac disease, mild chronic active gastritis, negative for H. pylori, AB PAS for intestinal metaplasia was normal. Her last colonoscopy was (03/24/07) was a normal colonoscopy by Dr. Hudson and it was recommended that she have a repeat in 10 years.H&H is 8.0/25.5. She is mildly tachycardic in the low 100s, blood pressure is stable- in fact, she is hypertensive. She had milk and bread pudding at 10am. NPO. 2 units ordered - Anemia, acute blood loss. HH 8.0/25.5. - Mild leukocytosis. WBC 11.1 - Hx CVA, On Plavix - RA, takes Meloxicam, plaquenel at home - COPD, HTN, DM, per primary PLAN: - Plan for egd, timing to be determined - Obtain consents - NPO - Protonix Gtt - 2 units PRBC ordered - Serial HH - Transfuse as necessary - CBC, BMP in am - Further recommendations to follow based on results of above - Pt seen and examined by Dr. Rico and myself and this note is written on his behalf (Kamryn Wright) Physician Comments Patient seen and examined Agree with above Continue with current supportive care Monitor labs EGD tomorrow to further evaluate the bleeding Avoid NSAIDs and aspirin Continue with PPI (Manuel Rico MD) Kamryn Wright Oct 11, 2016 16:57 Manuel Rico MD Oct 11, 2016 22:57
[2016-10-11] MEDS ORDERED: HYDROmorphone HCL PF 1 MG/ML VIAL IV PRN (17:00)
[2016-10-11] MEDS ORDERED: SODIUM CHLORIDE 0.9% FLUSH 5 ML FLUSH IV FLUSH PRN (17:00)
[2016-10-11] MEDS ORDERED: MISCELLANEOUS NURSING INFORMATION XX SCH (17:00)
[2016-10-11] MEDS ORDERED: ONDANSETRON HCL 4 MG/2 ML VIAL IV PRN (17:00)
[2016-10-11] MEDS ORDERED: MAGNESIUM OXIDE 400 MG TAB PO PRN (17:00)
[2016-10-11] MEDS ORDERED: POTASSIUM CL 40 MEQ/30 ML LIQ UDC PO/TUBE PRN ×2 (17:00)
[2016-10-11] MEDS ORDERED: POTASSIUM PHOSPHATE MONOBASIC 500 MG TAB PO/TUBE PRN (17:00)
[2016-10-11] MEDS ORDERED: RESP: ALBUTEROL 2.5 MG/IPRATROPIUM 0.5 MG NEB (PRN) INH (17:00)
[2016-10-11] MEDS ORDERED: MAGNESIUM SULFATE INJ 2 GM in SODIUM CHLORIDE 0.9% INJ 96 ML IV PRN (17:00)
[2016-10-11] MEDS ORDERED: MAGNESIUM SULFATE INJ 4 GM in SODIUM CHLORIDE 0.9% INJ 92 ML IV PRN (17:00)
[2016-10-11] MEDS ORDERED: CHLORHEXIDINE GLUCONATE 2 % 1 PACK (2 CLOTHS) TOP PRN (17:00)
[2016-10-11] MEDS ORDERED: SODIUM PHOSPHATE INJ 30 MMOL in SODIUM CHLOR 0.9% 250 ML INJ 240 ML IV PRN (17:00)
[2016-10-11] MEDS ORDERED: POTASSIUM PHOSPHATE INJ 30 MMOL in SODIUM CHLOR 0.9% 250 ML INJ 250 ML IV PRN (17:00)
[2016-10-11] MEDS ORDERED: POTASSIUM PHOSPHATE MONOBASIC 500 MG TAB PO PRN (17:00)
[2016-10-11] MEDS ORDERED: POTASSIUM CHLOR 20 MEQ PREMIX 100 ML IV PRN ×2 (17:00)
[2016-10-11] MEDS ORDERED: DEXTROSE 50% IN WATER 50 ML VIAL(D50) IV PUSH PRN (17:00)
[2016-10-11] MEDS ORDERED: POTASSIUM CHLOR 40 MEQ PREMIX 100 ML IV PRN ×2 (17:00)
--- NOTE | 2016-10-11 17:08 | HHI.HP ---
[facility] Service Critical Care Medicine Primary Care Physician Cipriano Carmichael MD Admission Diagnosis GI Bleed w/ Hematemesis, Anemia Diagnosis: Chief Complaint: hematemesis Travel History International Travel<30 Days: No Contact w/Intl Traveler <30 Da: No Traveled to Known Affected Are: No History of Present Illness This is a 71-year-old female who presented approximately 30 months after she had 2 episodes of nausea and vomiting dark red blood. She denies any abdominal pain, comes patient, diarrhea. Denies fever, chills. Denies shortness of breath. Denies syncope or lightheadedness. Apparently several years ago she says she was diagnosed with peptic ulcer disease. She is on Plavix for her prior stroke. In the emergency department she was found to have a hemoglobin of 8 which is down from a prior documented hemoglobin of 11. She is mildly tachycardic with a heart rate in the low 100s. GI was consulted to once to admit the patient for observation the intensive care unit and plan for endoscopy in the near future. Critical care medicine is consulted to evaluate and manage her possible upper GI bleed. Review of Systems Constitutional: DENIES: Fatigue, Fever, Chills Eyes: DENIES: Blurred vision Respiratory: DENIES: Cough, Hemoptysis, Sputum production, Shortness of breath Cardiovascular: DENIES: Chest pain, Syncope, Lower Extremity Edema Gastrointestinal: COMPLAINS OF: Vomiting, DENIES: Abdominal pain, Black stools , Bloody stools, Constipation, Diarrhea, Nausea Neurologic: DENIES: Headache Past Family Social History Allergies: Coded Allergies: Aspirin (Verified Allergy, Intermediate, GI BLEED, 10/11/16) *MDRO Multi-Drug Resistant Organism (Verified Allergy, Unknown, 10/11/16) MRSA 08/2013 MRSA PCR screen positive - 10/06/15; MRSA (leg-08/15/16) Past Medical History Arthritis COPD 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 Diabetes Hypertension Past Surgical History Right cataract surgery with lens implant Hysterectomy Bilateral total knee arthroplasty Reported Medications Flexeril (Cyclobenzaprine HCl) 10 Mg Tab 10 Mg PO TID PRN Metformin (Metformin HCl) 850 Mg Tab 850 Mg PO TID With a meal Diltiazem ER 24 HR 240 Mg Caper 240 Mg PO DAILY Cardizem (Diltiazem HCl) 120 Mg Tab 120 Mg PO QID Glipizide 5 Mg Tab 5 Mg PO DAILY Take 30 minutes before a meal Hydroxychloroquine (Hydroxychloroquine Sulfate) 200 Mg Tab 200 Mg PO DAILY Takw with food Breo Ellipta Inh (Fluticasone/Vilanterol) 100-25 Mcg/Act Inh 1 Puff INH DAILY Use daily at the same time. Plavix (Clopidogrel Bisulfate) 75 Mg Tab 75 Mg PO DAILY Sucralfate 1 Gm Tab 1 Gm PO QID on empty stomach [Father Rachel] 10 Ml PO Q4HR PRN Active Ordered Medications See MAR Family History reviewed and found to be noncontributory to her acute illness. Social History denies etoh, tobacco (former smoker, 22 yrs ago), doa. Physical Exam Vital Signs Vital Signs Date Time Temp Pulse Resp B/P Pulse Ox O2 Delivery O2 Flow Rate FiO2 10/11/16 15:34 101 19 153/84 97 Room Air 10/11/16 14:26 98.4 95 19 130/67 95 Room Air Physical Exam GENERAL: Elderly female, lying in bed, alert and oriented HEENT: Normocephalic. Atraumatic. Pupils equal, round, conjugate, reactive. Mucous membranes are dry. NECK: No JVD. Trachea is midline. CHEST: Unlabored respirations. Equal chest rise. Clear to auscultation. CARDIOVASCULAR: Cardiac rate, regular rhythm. There is a 2/6 systolic ejection murmur heard best at the left upper sternal border. ABDOMEN: Soft, nontender, nondistended. No guarding. MUSCULOSKELETAL: No peripheral edema. Distal pulses 2+. NEUROLOGICAL: RASS 0. Follows commands all 4 extremity. No gross focal motor or sensory deficits. Laboratory Laboratory Tests Test 10/11/16 10/11/16 10/11/16 14:40 14:55 15:53 White Blood Count 11.1 Red Blood Count 2.95 Hemoglobin 8.0 Hematocrit 25.5 Mean Corpuscular Volume 86.3 Mean Corpuscular Hemoglobin 27.1 Mean Corpuscular Hemoglobin 31.4 Concent Red Cell Distribution Width 17.5 Platelet Count 339 Mean Platelet Volume 7.8 Neutrophils (%) (Auto) 83.0 Lymphocytes (%) (Auto) 10.3 Monocytes (%) (Auto) 5.0 Eosinophils (%) (Auto) 1.0 Basophils (%) (Auto) 0.7 Neutrophils # (Auto) 9.2 Lymphocytes # (Auto) 1.1 Monocytes # (Auto) 0.6 Eosinophils # (Auto) 0.1 Basophils # (Auto) 0.1 CBC Comment DIFF FINAL Differential Comment Prothrombin Time 11.4 Prothromb Time International 1.0 Ratio Activated Partial 22.8 Thromboplast Time Sodium Level 142 Potassium Level 3.6 Chloride Level 105 Carbon Dioxide Level 29.0 Anion Gap 8 Blood Urea Nitrogen 34 Creatinine 0.74 Estimat Glomerular Filtration 94 Rate Random Glucose 95 Calcium Level 9.4 Total Bilirubin 0.3 Aspartate Amino Transf 6 (AST/SGOT) Alanine Aminotransferase 11 (ALT/SGPT) Alkaline Phosphatase 140 Total Protein 6.8 Albumin 3.3 Blood Type AB POSITIVE Antibody Screen NEGATIVE Crossmatch Leukocyte-Reduced Red Blood Cells Blood Bank Comment Result Diagram: 10/11/16 1440 10/11/16 1440 Assessment and Plan Assessment and Plan Assessment: This is a 71-year-old female with a history of Plavix use and a remote history of peptic ulcer disease who presents with a few episodes of hematemesis, and anemia. High concern for upper GI bleed. We will admit to the ICU for serial hemoglobins and monitor her closely. Plan: 1. Upper GI Bleed -- GI consulted -- continue protonix drip -- q6h H&H -- does not meet transfusion triggers at this time -- goal Hgb > 7 -- will not transfuse platelets as patient is hemodynamically stable. would consider 1 unit apheresed platelets if the patient continues to bleed. -- NPO for possible EGD -- 2 large bore piv at all times. 2. History of CVA -- hold Plavix for now. 3. Diabetes -- hold metformin -- SSI, q6h, medium scale 4. Hypertension -- hold home antihypertensives. -- q1h vital signs. 5. Hyperlipidemia -- restart home statin. SCDs for DVT prophylaxis. holding pharmacologic DVT prophylaxis in the setting of possible UGIB. Dispo: admit to the ICU for close monitoring. Code Status Full Code Discussed Condition With GI service Cliff Harrison MD Oct 11, 2016 17:08
[2016-10-11] MEDS ORDERED: PEG (High)/E-LYTE SOLN 4000 ML BTL PO ONE (19:00)
[2016-10-11] MEDS: ATORVASTATIN 10 MG TAB PO SCH (20:04)
[2016-10-11] MEDS: SODIUM CHLORIDE 0.9% FLUSH 5 ML FLUSH IV FLUSH SCH (20:04)
[2016-10-12] VITALS (12 sets, daily range): BP systolic 116–173; BP diastolic 57–79; PULSE 75–96; RESP 17–25; TEMP 97.6–98.7; O2SAT 95–100
[2016-10-12] MEDS: SODIUM CHLOR 0.9% 1000 ML INJ 1,000 ML IV SCH ×3 (03:00→23:00)
[2016-10-12 03:08] LABS: HEMATOCRIT 26.2 % (35.0-46.0); MEAN CELL VOLUME 85.2 FL (80.0-100.0); MEAN CORPUSCULAR HEMOGLOBIN 28.1 PG (27.0-34.0); PLATELET COUNT 276 TH/MM3 (150-450); RED BLOOD COUNT 3.07 MIL/MM3 (4.00-5.30); RED CELL DISTRIBUTION WIDTH 17.9 % (11.6-17.2); REVIEW FLAG FINAL
[2016-10-12 03:29] LABS: BICARBONATE 28.6 MEQ/L (21.0-32.0); POTASSIUM 3.8 MEQ/L (3.5-5.1)
[2016-10-12] MEDS: CHLORHEXIDINE GLUCONATE 2 % 1 PACK (2 CLOTHS) TOP SCH (04:00)
[2016-10-12] MEDS: INSULIN NovoLIN REGULAR SUPPLEMENTAL SCALE SQ SCH ×5 (06:00→23:38)
[2016-10-12] MEDS: PANTOPRAZOLE INJ 80 MG in SODIUM CHLORIDE 0.9% INJ 100 ML IV SCH ×2 (06:04→18:44)
[2016-10-12] MEDS: SODIUM CHLORIDE 0.9% FLUSH 5 ML FLUSH IV FLUSH SCH ×2 (07:44→19:38)
[2016-10-12] MEDS: CITALOPRAM HYDROBROMIDE 20 MG TAB PO SCH (07:44)
[2016-10-12 08:05] LABS: BLOOD, URINE NEG (NEG); COMMENT (UR) CATH-CULT NOT IND; CULTURE IF INDICATED CATH CULTURE NOT IND; GLUCOSE,URINE NEG (NEG); KETONE, URINE NEG (NEG); NITRITE,URINE NEG (NEG); PH, URINE 5.5 (5.0-8.5); SQUAMOUS EPITHELIAL CELL URINE 3 /hpf (0-5); URINE COLOR YELLOW (YELLW/STRAW)
[2016-10-12 11:31] LABS: REVIEW FLAG FINAL
[2016-10-12] MEDS ORDERED: PROPOFOL 200 MG/20 ML AMP IV ONE (14:57)
[2016-10-12] MEDS ORDERED: DO NOT ADM ANY ANTICOAGULANT DRUGS XX PRN (15:15)
--- NOTE | 2016-10-12 15:16 | PD.PROCEDR ---
GI Procedure REFERRING PHYSICIAN Dr. Galarza PROCEDURE PERFORMED EGD with biopsy INDICATION FOR PROCEDURE Hematemesis upper GI bleed PROCEDURE: The procedure, risks and benefits were discussed with Ms. Jimenez and informed consent was obtained. Anesthesia sedated her with Diprivan. She was placed in the left lateral decubitus position. EGD: The Pentax videoscope was introduced through the oropharynx and advanced to the second portion of the duodenum under direct visualization. Retroflexion was performed in the stomach. FINDINGS: The esophagus this appeared to be unremarkable and within normal limits The stomach there was a mild to moderately sized hiatal hernia there was a small but somewhat deep clean-based antral ulcer biopsies were taken from the ulcer site otherwise gastric mucosa was unremarkable The duodenum this was normal ESTIMATED BLOOD LOSS: None SPECIMENS REMOVED: Antral biopsy COMPLICATIONS: None IMPRESSION: Hiatal hernia Gastric ulcer PLAN: Await biopsy Avoid NSAIDs and aspirin Continue PPI EGD in 2 months Advance diet and monitor labs if all is stable tomorrow patient may be discharged from a GI standpoint Manuel Rico MD Oct 12, 2016 15:16
--- NOTE | 2016-10-12 16:03 | HHI.CCPN ---
Subjective Remarks/Hospital Course Hospital Course: This is a 71-year-old female who presented approximately 30 months after she had 2 episodes of nausea and vomiting dark red blood. She denies any abdominal pain, comes patient, diarrhea. Denies fever, chills. Denies shortness of breath. Denies syncope or lightheadedness. Apparently several years ago she says she was diagnosed with peptic ulcer disease. She is on Plavix for her prior stroke. In the emergency department she was found to have a hemoglobin of 8 which is down from a prior documented hemoglobin of 11. She is mildly tachycardic with a heart rate in the low 100s. GI was consulted to once to admit the patient for observation the intensive care unit and plan for endoscopy in the near future. Critical care medicine is consulted to evaluate and manage her possible upper GI bleed. Subjective: 10/12: hgb stable overnight after 2 units prbc. going for EGD today. no complaints. Objective Vital Signs Date Time Temp Pulse Resp B/P Pulse Ox O2 Delivery O2 Flow Rate FiO2 10/12/16 15:30 98.3 86 12 145/80 99 Nasal Cannula 2 Intake and Output 10/11/16 10/11/16 10/12/16 08:00 16:00 00:00 Intake Total 506 ml Output Total 150 ml Balance 356 ml Result Diagram: 10/12/16 1054 10/12/16 0255 Objective Remarks GENERAL: Elderly female, lying in bed, alert and oriented HEENT: Normocephalic. Atraumatic. Pupils equal, round, conjugate, reactive. Mucous membranes are dry. NECK: No JVD. Trachea is midline. CHEST: Unlabored respirations. Equal chest rise. Clear to auscultation. CARDIOVASCULAR: Cardiac rate, regular rhythm. There is a 2/6 systolic ejection murmur heard best at the left upper sternal border. ABDOMEN: Soft, nontender, nondistended. No guarding. MUSCULOSKELETAL: No peripheral edema. Distal pulses 2+. NEUROLOGICAL: RASS 0. Follows commands all 4 extremity. No gross focal motor or sensory deficits. A/P Assessment and Plan Assessment: This is a 71-year-old female with a history of Plavix use and a remote history of peptic ulcer disease who presents with a few episodes of hematemesis, and anemia. EGD today demonstrated non-bleeding antral ulcer. per GI, will advance diet and she is stable for transfer out of ICU. Plan: 1. Upper GI Bleed- stable. -- GI consulted -- continue protonix drip -- daily CBC -- does not meet transfusion triggers at this time -- goal Hgb > 7 -- will not transfuse platelets as patient is hemodynamically stable. -- advance diet per GI. 2. History of CVA -- hold Plavix for now given recent GI bleed. 3. Diabetes -- hold metformin -- SSI, q6h, medium scale 4. Hypertension -- hold home antihypertensives. -- q1h vital signs. 5. Hyperlipidemia --continue home statin. SCDs for DVT prophylaxis. holding pharmacologic DVT prophylaxis in the setting of recent UGIB. Dispo: transfer to floor with hospitalist following. Cliff Harrison MD Oct 12, 2016 16:03
[2016-10-12] MEDS: ATORVASTATIN 10 MG TAB PO SCH (19:38)
[2016-10-13] VITALS (11 sets, daily range): BP systolic 119–147; BP diastolic 60–80; PULSE 77–90; RESP 18–24; TEMP 97.7–99.4; O2SAT 93–100
[2016-10-13] MEDS: CHLORHEXIDINE GLUCONATE 2 % 1 PACK (2 CLOTHS) TOP SCH (04:22)
[2016-10-13] MEDS: INSULIN NovoLIN REGULAR SUPPLEMENTAL SCALE SQ SCH ×4 (05:37→23:55)
[2016-10-13 06:10] LABS: HEMATOCRIT 25.7 % (35.0-46.0); MEAN CELL VOLUME 85.9 FL (80.0-100.0); MEAN CORPUSCULAR HGB CONC 32.6 % (32.0-36.0); PLATELET COUNT 279 TH/MM3 (150-450); RED BLOOD COUNT 2.99 MIL/MM3 (4.00-5.30); RED CELL DISTRIBUTION WIDTH 18.1 % (11.6-17.2); REVIEW FLAG FINAL; WHITE BLOOD COUNT 9.7 TH/MM3 (4.0-11.0)
[2016-10-13 06:29] LABS: BICARBONATE 31.6 MEQ/L (21.0-32.0); POTASSIUM 3.6 MEQ/L (3.5-5.1)
[2016-10-13] MEDS: CITALOPRAM HYDROBROMIDE 20 MG TAB PO SCH (08:46)
[2016-10-13] MEDS: SODIUM CHLORIDE 0.9% FLUSH 5 ML FLUSH IV FLUSH SCH ×2 (08:47→20:41)
[2016-10-13] MEDS: SODIUM CHLOR 0.9% 1000 ML INJ 1,000 ML IV SCH (08:47)
[2016-10-13] MEDS: PANTOPRAZOLE INJ 80 MG in SODIUM CHLORIDE 0.9% INJ 100 ML IV SCH (11:07)
--- NOTE | 2016-10-13 13:21 | HHI.PR ---
Subjective Remarks no episodes of nausea vomiting, hematemesis d/w her that we will her advance diet and increase activity and monitor Objective Vitals Vital Signs Date Time Temp Pulse Resp B/P Pulse Ox O2 Delivery O2 Flow Rate FiO2 10/13/16 12:00 99.0 90 18 133/60 96 10/13/16 11:44 99.4 90 24 139/75 97 10/13/16 08:54 82 10/13/16 08:00 97.7 82 18 147/67 98 10/13/16 07:40 99 Nasal Cannula 2.00 10/13/16 04:00 98.2 81 18 119/60 99 10/13/16 00:15 77 10/13/16 00:00 98.0 80 18 141/80 100 10/12/16 22:00 81 10/12/16 20:00 98 Nasal Cannula 2.00 10/12/16 20:00 98.5 86 17 116/57 100 10/12/16 20:00 82 10/12/16 18:00 96 10/12/16 16:00 98.7 84 21 163/75 100 10/12/16 16:00 84 10/12/16 15:30 98.3 86 12 145/80 99 Nasal Cannula 2 10/12/16 15:15 88 12 144/83 96 Nasal Cannula 2 10/12/16 15:12 98.3 87 12 147/79 95 Nasal Cannula 2 I/O 10/12/16 10/12/16 10/12/16 10/13/16 10/13/16 10/13/16 07:00 15:00 23:00 07:00 15:00 23:00 Intake Total 377 ml 914 ml 1177 ml 0 ml Output Total 800 ml 350 ml 450 ml Balance 377 ml 114 ml 827 ml -450 ml Intake Oral 350 ml 0 ml IV Total 377 ml 914 ml 627 ml Other 200 ml Output Urine Total 800 ml 350 ml 450 ml # Voids 3 # Bowel Movements 0 0 0 Result Diagram: 10/13/16 0546 10/13/16 0546 Objective Remarks anicteric lungs clear regular rhythm abdomen soft, nontender extrmeities no edema Procedures EGD 10/12 A/P Assessment and Plan 1. Upper GI Bleed- stable. S/P EGD- gastric ulcer- no active bleed change to po Protonix 40 mg po bid H and H stable -- does not meet transfusion triggers at this time -- goal Hgb > 7 -- will not transfuse platelets as patient is hemodynamically stable. advance diet d/w DC Mobic 2. History of CVA -- hold Plavix for now given recent GI bleed. -PT/OT consult 3. Diabetes -- hold metformin -- SSI, q6h, medium scale 4. Hypertension monitor restart her CCB in am- consider at a lower dose 5. Hyperlipidemia --continue home statin. SCDs for DVT prophylaxis. Increase activity CM for DC planning - [facility] nursing Gurinder Fatima MD Oct 13, 2016 13:20
--- NOTE | 2016-10-13 14:13 | HHI.FF ---
Face to Face Verification Diagnosis: (1) Anemia due to acute blood loss (2) GI bleed Physical Therapy Order: Evaluate and Treat, Strength and gait training Home Health Nursing Order: Medical education Signs/symptoms of disease process Nursing assessment with vital signs I have seen patient Herlinda Jimenez on 10/13/16. My clinical findings support the need for the requested home health care services because: Ltd mobility - disease progression Deconditioned w/ increased weakness I certify that my clinical findings support that this patient is homebound because: Need for psychosocial assistance Gurinder Fatima MD Oct 13, 2016 14:13
--- NOTE | 2016-10-13 15:46 | HHI.GIFU ---
Subjective Remarks Patient is sitting up in chair denies nausea, vomiting, abdomen pain, hematemesis or melena. (Nuris Venegas) Objective Vitals I&O Vital Signs Date Time Temp Pulse Resp B/P Pulse Ox O2 Delivery O2 Flow Rate FiO2 10/13/16 12:00 99.0 90 18 133/60 96 10/13/16 11:44 99.4 90 24 139/75 97 10/13/16 08:54 82 10/13/16 08:00 97.7 82 18 147/67 98 10/13/16 07:40 99 Nasal Cannula 2.00 10/13/16 04:00 98.2 81 18 119/60 99 10/13/16 00:15 77 10/13/16 00:00 98.0 80 18 141/80 100 10/12/16 22:00 81 10/12/16 20:00 98 Nasal Cannula 2.00 10/12/16 20:00 98.5 86 17 116/57 100 10/12/16 20:00 82 10/12/16 18:00 96 10/12/16 16:00 98.7 84 21 163/75 100 10/12/16 16:00 84 I/O 10/12/16 10/12/16 10/12/16 10/13/16 10/13/16 10/13/16 07:00 15:00 23:00 07:00 15:00 23:00 Intake Total 377 ml 914 ml 1177 ml 0 ml Output Total 800 ml 350 ml 450 ml Balance 377 ml 114 ml 827 ml -450 ml Intake Oral 350 ml 0 ml IV Total 377 ml 914 ml 627 ml Other 200 ml Output Urine Total 800 ml 350 ml 450 ml # Voids 3 # Bowel Movements 0 0 0 Laboratory Laboratory Tests Test 10/13/16 05:46 White Blood Count 9.7 Red Blood Count 2.99 Hemoglobin 8.4 Hematocrit 25.7 Mean Corpuscular Volume 85.9 Mean Corpuscular Hemoglobin 28.0 Mean Corpuscular Hemoglobin 32.6 Concent Red Cell Distribution Width 18.1 Platelet Count 279 Mean Platelet Volume 7.6 Sodium Level 144 Potassium Level 3.6 Chloride Level 107 Carbon Dioxide Level 31.6 Anion Gap 5 Blood Urea Nitrogen 21 Creatinine 0.76 Estimat Glomerular Filtration 91 Rate Random Glucose 123 Calcium Level 8.2 Physical Exam HEENT: normocephalic; atraumatic; no jaundice. NECK: Neck is supple, no JVD, no lymphadenopathy. CHEST: Chest is clear to auscultation and percussion. CARDIAC: Regular rate and rhythm ABDOMEN: Soft, nondistended, nontender; no hepatosplenomegaly; bowel sounds are present in all four quadrants. EXTREMITIES: No clubbing, cyanosis, or edema. SKIN: Normal; no rash; no jaundice. BRINE TANK TENDER: No focal deficits; alert and oriented times three. (Nuris Venegas) Assessment and Plan Plan ASSESSMENT: - Upper GIB with hematemesis. No more, hgb stable, S/P EGD on (10/12/16) -----> hiatal hernia, gastric ulcer, BX pending - Anemia, acute blood loss. No more bleeding, hgb stable - Mild leukocytosis. resolved - Hx CVA, On Plavix - RA, takes Meloxicam, plaquenel at home - COPD, HTN, DM, per primary PLAN: - Await bx - Okay to DC from GI stand point - Cont Protonix - F/u with gi in 2 weeks - EGD in 2 months - Avoid NSAIDs - Gi will sign off - Pt seen and examined by Dr. Rico and myself and this note is written on his behalf (Nuris Venegas) Physician Comments Patient seen and examined Agree with above Continue with current supportive care Monitor labs We will sign off (Manuel Rico MD) Nuris Venegas Oct 13, 2016 15:46 Manuel Rico MD Oct 13, 2016 21:41
[2016-10-13] MEDS: PANTOPRAZOLE SOD 40 MG DELAYED RELEASE TAB PO SCH (20:39)
[2016-10-13] MEDS: ATORVASTATIN 10 MG TAB PO SCH (20:40)
[2016-10-14] VITALS (9 sets, daily range): BP systolic 117–154; BP diastolic 64–81; PULSE 79–95; RESP 16–20; TEMP 97.7–99; O2SAT 95–100
[2016-10-14] MEDS: CHLORHEXIDINE GLUCONATE 2 % 1 PACK (2 CLOTHS) TOP SCH (04:19)
[2016-10-14] MEDS: INSULIN NovoLIN REGULAR SUPPLEMENTAL SCALE SQ SCH ×3 (05:24→16:59)
[2016-10-14 08:12] LABS: HEMATOCRIT 26.1 % (35.0-46.0); MEAN CELL VOLUME 86.2 FL (80.0-100.0); MEAN CORPUSCULAR HEMOGLOBIN 28.2 PG (27.0-34.0); MEAN CORPUSCULAR HGB CONC 32.7 % (32.0-36.0); PLATELET COUNT 307 TH/MM3 (150-450); RED BLOOD COUNT 3.03 MIL/MM3 (4.00-5.30); RED CELL DISTRIBUTION WIDTH 17.6 % (11.6-17.2); REVIEW FLAG FINAL; WHITE BLOOD COUNT 9.4 TH/MM3 (4.0-11.0)
[2016-10-14 08:30] LABS: BICARBONATE 30.4 MEQ/L (21.0-32.0); POTASSIUM 3.2 MEQ/L (3.5-5.1)
[2016-10-14] MEDS: PANTOPRAZOLE SOD 40 MG DELAYED RELEASE TAB PO SCH (08:31)
[2016-10-14] MEDS: SODIUM CHLORIDE 0.9% FLUSH 5 ML FLUSH IV FLUSH SCH (08:31)
[2016-10-14] MEDS: CITALOPRAM HYDROBROMIDE 20 MG TAB PO SCH (08:31)
--- NOTE | 2016-10-14 11:02 | HHI.FF ---
Face to Face Verification Home Health Nursing Order: Medical education Signs/symptoms of disease process Medication education-adverse effect Nursing assessment with vital signs I have seen patient Herlinda Jimneez on 10/14/16. My clinical findings support the need for the requested home health care services because: I certify that my clinical findings support that this patient is homebound because: Gurinder Fatima MD Oct 14, 2016 11:02
[2016-10-14] MEDS ORDERED: PANT40TA3 PO (11:07)
[2016-10-14] MEDS ORDERED: METF500T PO (11:09)
[2016-10-14] MEDS ORDERED: POTASSIUM CHLORIDE 10 MEQ CONTROLLED RELEASE TAB PO ONE (11:15)
--- NOTE | 2016-10-14 11:17 | HHI.PR ---
Subjective Remarks tolerating po well no nausea or vomiting states she got walker and power chair at home Objective Vitals Vital Signs Date Time Temp Pulse Resp B/P Pulse Ox O2 Delivery O2 Flow Rate FiO2 10/14/16 11:10 93 10/14/16 08:50 98 Nasal Cannula 2.00 10/14/16 08:00 98.3 80 16 154/81 99 10/14/16 04:47 98.2 83 20 146/65 96 10/14/16 03:34 79 10/14/16 00:00 98.0 95 18 141/67 95 10/13/16 20:00 98.3 83 18 131/73 93 10/13/16 16:00 98.5 81 18 135/75 98 10/13/16 15:53 96 Nasal Cannula 2.00 10/13/16 12:00 99.0 90 18 133/60 96 10/13/16 11:44 99.4 90 24 139/75 97 I/O 10/13/16 10/13/16 10/13/16 10/14/16 10/14/16 10/14/16 07:00 15:00 23:00 07:00 15:00 23:00 Intake Total 0 ml 720 ml 2570 ml 520 ml Output Total 450 ml 1500 ml 800 ml 500 ml Balance -450 ml -780 ml 1770 ml 20 ml Intake Oral 0 ml 720 ml 550 ml 520 ml IV Total 2020 ml Output Urine Total 450 ml 1500 ml 800 ml 500 ml # Bowel Movements 0 0 0 Result Diagram: 10/14/16 0630 10/14/16 0630 Objective Remarks a x ox 3 anicteric lungs clear regular rhythm abdomen soft, nontender no edema neuro exam- unremarkable Procedures EGD 10/12 A/P Assessment and Plan 1. Upper GI Bleed- stable. S/P EGD- gastric ulcer- no active bleed Protonix 40 mg po bid H and H stable -- does not meet transfusion triggers at this time -- goal Hgb > 7 -- will not transfuse platelets as patient is hemodynamically stable. advance diet d/w DC Mobic, no NSAIds 2. History of CVA - d/w GI- may restart Plavix -PT/OT consult 3. Diabetes --- restart at a lower dose 500 mg po bid as OP - d/w patient to monitor -- good readings here -- SSI, q6h, medium scale 4. Hypertension monitor restart her Cozaar 50 mg daily 5. Hyperlipidemia --continue home statin. SCDs for DVT prophylaxis. Increase activity CM for DC planning - [facility] nursing Gurinder Fatima MD Oct 14, 2016 11:17
[2016-10-14] MEDS ORDERED: LOSARTAN 50 MG TAB PO SCH (12:00)
[2016-10-15] MEDS ORDERED: CLOPIDOGREL 75 MG TAB PO SCH (09:00)
--- NOTE | 2016-12-28 15:05 | HHI.DS ---
Discharge Summary Admission Date Oct 11, 2016 at 16:13 Discharge Date: Oct 14, 2006 Admitting Diagnosis GI Bleed w/ Hematemesis, Anemia (1) GI bleed ICD Code: K92.2 Diagnosis: Principal Procedures EGD 10/12 Brief History - From Admission This is a 71-year-old female who presented approximately 30 months after she had 2 episodes of nausea and vomiting dark red blood. She denies any abdominal pain, comes patient, diarrhea. Denies fever, chills. Denies shortness of breath. Denies syncope or lightheadedness. Apparently several years ago she says she was diagnosed with peptic ulcer disease. She is on Plavix for her prior stroke. In the emergency department she was found to have a hemoglobin of 8 which is down from a prior documented hemoglobin of 11. She is mildly tachycardic with a heart rate in the low 100s. GI was consulted to once to admit the patient for observation the intensive care unit and plan for endoscopy in the near future. Critical care medicine is consulted to evaluate and manage her possible upper GI bleed. PE at Discharge a x ox 3 anicteric lungs clear regular rhythm abdomen soft, nontender no edema neuro exam- unremarkable Hospital Course 1. Upper GI Bleed- stable. S/P EGD- gastric ulcer- no active bleed Protonix 40 mg po bid H and H stable -- does not meet transfusion triggers at this time -- goal Hgb > 7 -- will not transfuse platelets as patient is hemodynamically stable. advance diet d/w DC Mobic, no NSAIds 2. History of CVA - d/w GI- may restart Plavix -PT/OT consult 3. Diabetes --- restart at a lower dose 500 mg po bid as OP - d/w patient to monitor -- good readings here -- SSI, q6h, medium scale 4. Hypertension monitor restart her Cozaar 50 mg daily 5. Hyperlipidemia --continue home statin. SCDs for DVT prophylaxis. Increase activity CM for DC planning - [facility] nursing Pt Condition on Discharge: Stable Discharge Disposition: Discharge Home Discharge Time: > 30 minutes Discharge Instructions DIET: Follow Instructions for: Heart Healthy Diet Speech Therapy-Diet Recommends: Regular Activities you can perform: Weight Bearing as Renae Activities to Avoid: Prolonged Standing, Strenuous Activity Follow up Referrals: Gastroenterology - 2 Weeks with Manuel Rico MD PCP Follow-up - 1 Week with PCP Gurinder Fatima MD December 28, 2016 15:05
== END 2016-10-14 18:48 | disposition home or self-care (01) | DRG 378 ==
LOC: NEPA 13:38 → NEDA 16:13 → HIMW 19:30 → N04A 10-12 23:43
PROVIDERS: ADMIT Internal Medicine; ATTEND Internal Medicine
PROC: 0DB68ZX Excision of Stomach, Via Natural or Artificial Opening Endoscopic, Diagnostic (ICD-10-PCS; principal; 2016-10-12 14:52)
DX: K25.4 Chronic or unspecified gastric ulcer with hemorrhage (principal); I69.351 Hemiplegia and hemiparesis following cerebral infarction affecting right dominant side; J44.9 Chronic obstructive pulmonary disease, unspecified; D62 Acute posthemorrhagic anemia; E11.9 Type 2 diabetes mellitus without complications; I10 Essential (primary) hypertension; Z87.891 Personal history of nicotine dependence; E78.5 Hyperlipidemia, unspecified; K44.9 Diaphragmatic hernia without obstruction or gangrene; M06.9 Rheumatoid arthritis, unspecified; N32.81 Overactive bladder
CPT/HCPCS: 36430; 76937; 80048; 80053; 81001; 82948; 85014; 85018; 85025; 85027; 85610; 85730; 86850; 86900; 86901; 86920; 87641; 88305; 88312; 94150; 94640; 94667; 94668; 99291; C9113; J2405; J7030; J7050; P9016

== ENCOUNTER → 2017-01-17 | Day surgery (SDC) | payer OTHER ==
[~2017-01-17] MED LIST changes: +ACET-703 PO; -CARD120T4 PO; +CELE20TA PO; -CYCL1TAB29 PO; -DILT-48 PO; -FLUT1INH INH; -GLIP5TAB8 PO; +LACTATED RINGER'S 1000 ML INJ 1,000 ML ONE; +LINA145C PO; +LIPI10TA PO; +LOSA50TA PO; +METF500T PO; -METF850T PO; +PANT40TA3 PO; +PROPOFOL 200 MG/20 ML AMP IV ONE; +TOLT1CAP PO
--- NOTE | 2017-01-17 11:39 | GIPROC ---
[facility] [address] [facility], [address] EGD PROCEDURE REPORT EXAM DATE: 01/17/2017 PATIENT NAME: Herlinda Jimenez MR #: [id number] BIRTHDATE: 1945 ATTENDING: Penny Garza MD ORDER #: [id number] CLIENT SERVICE COORDINATOR: Orquidea Aquino RN STATUS: outpatient INDICATIONS: The patient is a 71 yr old female here for an EGD due to H/O Gastric ulcer PROCEDURE PERFORMED: EGD, diagnostic MEDICATIONS: None and Per Anesthesia. TOPICAL ANESTHETIC: none CONSENT: The patient understands the risks and benefits of the procedure and understands that these risks include, but are not limited to: sedation, allergic reaction, infection, perforation and/or bleeding. Alternative means of evaluation and treatment include, among others: physical exam, x-rays, and/or surgical intervention. The patient elects to proceed with this endoscopic procedure. medical equipment was checked for proper function. Hand hygiene and appropriate measures for infection prevention was taken. After the risks, benefits and alternatives of the procedure were thoroughly explained, Informed consent was verified, confirmed and timeout was successfully executed by the treatment team. The patient was anesthetized with topical anesthesia and the EC-[id number] ([id number]) and [id number] ([id number]) endoscope was introduced through the mouth and advanced to the second portion of the duodenum. Retroflexed views revealed no abnormalities The gastroscope was then slowly withdrawn and removed. Healled ulcer in the antrum. The endoscopy was otherwise normal. ADVERSE EVENTS: There were no complications. IMPRESSIONS: 1. Healled ulcer in the antrum 2. Normal endoscopy otherwise 3. Retroflexed views revealed no abnormalities RECOMMENDATIONS: 1. Anti-reflux regimen 2. Continue PPI 3. Avoid NSAIDS PATIENT CONDITION: stable DISPOSITION: Home REPEAT EXAM: Return as needed for EGD Penny Garza MD eSigned: Penny Garza MD 01/17/2017 11:39 AM cc: Cipriano Carmichael M.D.
== END | disposition home or self-care (01) ==
LOC: ESDC 10:06
PROVIDERS: ATTEND Hospitalist
DX: Z87.11 Personal history of peptic ulcer disease (principal)
CPT/HCPCS: 00740; 43235; J7120

== ENCOUNTER → 2017-07-18 | Outpatient (CLI) | payer OTHER ==
[~2017-07-18] VITALS: Ht 165.1 cm; Wt 106.3 kg
[~2017-07-18] MED LIST changes: -LACTATED RINGER'S 1000 ML INJ 1,000 ML ONE; +LIDOCAINE HCL 1% PF 5 ML SYRINGE OTHER ONE
--- NOTE | 2017-07-18 17:11 | GIPROC ---
[facility] [address] [facility]. [facility], [address] EGD PROCEDURE REPORT EXAM DATE: 07/18/2017 PATIENT NAME: Herlinda Jimenez MR #: [id number] BIRTHDATE: 1945 ATTENDING: Manuel Rico MD ORDER #: [id number] WEB MACHINE TENDER: Mario Callejas RN STATUS: outpatient INDICATIONS: The patient is a 71 yr old female here for an EGD due to anemia PROCEDURE PERFORMED: EGD, diagnostic MEDICATIONS: None and Per Anesthesia. TOPICAL ANESTHETIC: CONSENT: The patient understands the risks and benefits of the procedure and understands that these risks include, but are not limited to: sedation, allergic reaction, infection, perforation and/or bleeding. Alternative means of evaluation and treatment include, among others: physical exam, x-rays, and/or surgical intervention. The patient elects to proceed with this endoscopic procedure. medical equipment was checked for proper function. Hand hygiene and appropriate measures for infection prevention was taken. After the risks, benefits and alternatives of the procedure were thoroughly explained, Informed consent was verified, confirmed and timeout was successfully executed by the treatment team. The patient was anesthetized with topical anesthesia and the endoscope was introduced through the mouth and advanced to the second portion of the duodenum. Retroflexed views revealed no abnormalities The gastroscope was then slowly withdrawn and removed. ESOPHAGUS: The mucosa of the esophagus appeared normal. STOMACH: The mucosa of the stomach appeared normal. DUODENUM: The duodenal mucosa appeared normal. ADVERSE EVENTS: There were no complications. IMPRESSIONS: 1. The esophagus appeared normal 2. The mucosa of the stomach appeared normal 3. Normal duodenal mucosa 4. Retroflexed views revealed no abnormalities RECOMMENDATIONS: Follow-up: GI clinic 4 week(s) PATIENT CONDITION: stable DISPOSITION: Home REPEAT EXAM: Manuel Rico MD eSigned: Manuel Rico MD 07/18/2017 5:11 PM cc:
--- NOTE | 2017-07-18 17:15 | GIPROC ---
[facility] [address] [facility]. [facility], [address] COLONOSCOPY PROCEDURE REPORT EXAM DATE: 07/18/2017 PATIENT NAME: Herlinda Jimenez MR #: [id number] BIRTHDATE: 1945 ENDOSCOPIST: Manuel Rico MD ORDER #: [id number] METER READER INSPECTOR: Mario Callejas RN STATUS: outpatient INDICATIONS: The patient is a 71 yr old female here for a colonoscopy due to average risk patient for colon cancer PROCEDURE PERFORMED: Colonoscopy, incomplete MEDICATIONS: None and Per Anesthesia. PREP QUALITY: poor ESTIMATED BLOOD LOSS: None CONSENT: The patient understands the risks and benefits of the procedure and understands that these risks include, but are not limited to: sedation, allergic reaction, infection, perforation and/or bleeding. Alternative means of evaluation and treatment include, among others: physical exam, x-rays, and/or surgical intervention. The patient elects to proceed with this endoscopic procedure. medical equipment was checked for proper function. Hand hygiene and appropriate measures for infection prevention was taken. After the risks, benefits and alternatives of the procedure were thoroughly explained, Informed consent was verified, confirmed and timeout was successfully executed by the treatment team. A digital exam revealed no abnormalities of the rectum The endoscope was introduced through the anus and advanced to the cecum, which was identified by both the appendix and ileocecal valve. The instrument was then slowly withdrawn as the colon was fully examined. COLON FINDINGS: The colonic mucosa appeared normal. Incomplete poor prep. Retroflexed views revealed no abnormalities The scope was then completely withdrawn from the patient and the procedure terminated. ADVERSE EVENTS: There were no complications. IMPRESSIONS: 1. The colonic mucosa appeared normal 2. Incomplete poor prep 3. Retroflexed views revealed no abnormalities 4. Revealed no abnormalities of the rectum RECOMMENDATIONS: 1. Follow-up: GI Clinic 4 week(s) 2. Cbc prior office visit needs repeat colon if neg then she will need CE RECALL: Return 3 months Colonoscopy Manuel Rico MD eSigned: Manuel Rico MD 07/18/2017 5:15 PM cc: PATIENT NAME: Herlinda Jimenez MR#: [id number]
[2017-07-18 18:05] VITALS: BP 159/92; PULSE 99; RESP 20; O2SAT 93
== END ==
LOC: HEND 09:47
PROVIDERS: ATTEND Internal Medicine Gastroenterology
DX: D64.9 Anemia, unspecified (principal); R19.5 Other fecal abnormalities; N31.8 Other neuromuscular dysfunction of bladder; I10 Essential (primary) hypertension; Z87.11 Personal history of peptic ulcer disease

== ENCOUNTER 2018-07-13 18:52 | Inpatient (IN) ==
[2018-07-13 19:50] LABS: Baso # (Auto) 0.1 th/mm3 (0.0-0.2); Baso % (Auto) 0.8 % (0.0-2.0); Eos % (Auto) 0.2 % (0.0-4.0); Hematocrit 40.5 % (35.0-46.0); Hemoglobin 12.7 gm/dL (11.6-15.3); Lymph # (Auto) 1.1 th/mm3 (1.0-4.8); Lymph % (Auto) 11.1 % (9.0-44.0); Mean Corpuscular HGB Conc 31.3 % (32.0-36.0); Mean Corpuscular Hemoglobin 27.6 pg (27.0-34.0); Mean Corpuscular Volume 88.2 fL (80.0-100.0); Mean Platelet Volume 8.8 fL (7.0-11.0); Mono # (Auto) 0.9 th/mm3 (0.0-0.9); Neut # (Auto) 7.8 th/mm3 (1.8-7.7); Neut % (Auto) 78.9 % (16.0-70.0); Platelet Count 353 th/mm3 (150-450); Red Cell Distribution Width 16.6 % (11.6-17.2); White Blood Count 9.9 th/mm3 (4.0-11.0)
--- NOTE | 2018-07-13 19:59 | XR ---
EXAM DATE: 07/13/2018 7:45 PM EST AGE/SEX: 72 years / Female INDICATIONS: Shortness of breath, weakness, and confusion. CLINICAL DATA: This is the patient's initial encounter. Patient reports that signs and symptoms have been present for 1 day and indicates a pain score of Nonresponsive. MEDICAL/SURGICAL HISTORY: . Hypertension. Chronic obstructive pulmonary disease. Diabetes melli tus type 2. . Hysterectomy. Total knee replacement, left. Total knee replacement, right COMPARISON: No prior exams available for comparison. FINDINGS: Heart size is enlarged. Tortuous aorta. Minimal basilar atelectasis. 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 Previous right shoulder joint replacement. CONCLUSION: Cardiomegaly. Minimal basilar atelectasis. No effusion or pneumothorax. Electronically signed by: Greg Hernandez MD 07/13/2018 7:58 PM EST
--- NOTE | 2018-07-13 20:06 | CT ---
EXAM DATE: 07/13/2018 8:00 PM EST AGE/SEX: 72 years / Female INDICATIONS: Altered mental status. CLINICAL DATA: This is the patient's initial encounter. Patient reports that signs and symptoms have been present for 1 day and indicates a pain score of Nonresponsive. MEDICAL/SURGICAL HISTORY: Cerebrovascular disease. None. RADIATION DOSE: 41.04 CTDI (mGy) COMPARISON: [facility] [place], CT BRAIN W/O CONTRAST, 08/15/2016. . TECHNIQUE: CT of the head without contrast. Using automated exposure control and adjustment of the mA and/or kV according to patient size, radiation dose was kept as low as reasonably achievable to ob tain optimal diagnostic quality images. DICOM format image data is available electronically for revi ew and comparison. FINDINGS: Cerebrum: The ventricles are normal for age with atrophy and chronic small vessel ischemic changes. No evidence of midline shift, mass lesion, hemorrhage or acute infarction. No extraaxial fluid colle ctions are seen. Posterior Fossa: The cerebellum and brainstem are intact. The 4th ventricle is midline. The cerebe llopontine angle is unremarkable. Extracranial: The visualized portion of the orbits is intact. Skull: The calvaria is intact. No evidence of skull fracture. CONCLUSION: 1. Stable appearance with no evidence of hemorrhage or mass effect. . Electronically signed by: Homar Rosenbaum MD 07/13/2018 8:04 PM EST
[2018-07-13 20:12] LABS: Alanine Aminotransferase 16 U/L (10-53); Albumin 3.7 g/dL (3.4-5.0); Anion Gap 7 meq/L (5-15); Aspartate Aminotransferase 26 U/L (15-37); Blood Urea Nitrogen 22 mg/dL (7-18); Calcium 9.7 mg/dL (8.5-10.1); Carbon Dioxide 28.7 meq/L (21.0-32.0); Chloride 104 meq/L (98-107); Glomerular Filtration Rate 66 mL/min (>89); Glucose,Random 136 mg/dL (74-106); Magnesium 1.5 mg/dL (1.5-2.5); Potassium 3.2 meq/L (3.5-5.1); Sodium 140 meq/L (136-145)
--- NOTE | 2018-07-13 20:12 | ED ---
HPI General Chief complaint: Altered Mental Status Stated complaint: AMS Time Seen by Provider: 07/13/18 19:10 History of Present Illness HPI narrative: Patient is a 72-year-old female with a history of stroke leaving some right-sided deficits normally alert and active able to care for much of her tib[place] daily living Walker presents emergency department for rather acute onset of altered mental status today. According to a friend of the family who looks in on her from time to time because her son is currently deployed in the [place] . she was okay earlier today but fire department did have to come out her off the floor. The friend states that they were called out again because the patient apparently called her son overseas who called 911 stating that she was not acting herself. EMS came out to see her and stated that she had significant change even from early this morning at their lift assist civil assist. The patient is somnolent bordering on lethargic currently she is alert and awake and oriented but she appears very weak and unable to give most of her history. According to the friend the patient does have a history of diabetes but apparently she had not been taking her medicine in a day and a half. No chest pain no shortness of breath no fever was relayed from the friend. Related Data Home Medications Medication Instructions Recorded Confirmed atorvastatin 10 mg PO DAILY 07/13/18 07/13/18 glipizide 5 mg PO DAILY 07/13/18 07/13/18 linaclotide [Linzess] 145 mcg PO DAILY 07/13/18 07/13/18 metformin 850 mg PO TID 07/13/18 07/13/18 solifenacin [Vesicare] 10 mg PO DAILY 07/13/18 07/13/18 sucralfate 1 g PO Q6H 07/13/18 07/13/18 Allergies Allergy/AdvReac Type Severity Reaction Status Date / Time aspirin Allergy Intermediate GI BLEED Unverified 07/18/17 12:28 *MDRO Multi-Drug Resistant Allergy Unknown Uncoded 07/18/17 12:28 Organism Review of Systems ROS: all other systems reviewed are negative [facility] Medical History Medical History CVA (cerebral vascular accident) (Acute) Diabetes (Acute) HLD (hyperlipidemia) (Acute) IBS (irritable bowel syndrome) (Acute) Family History Family History Other Family history unknown Social History Social History Substance History: Unable to Obtain Smoking Status: Unknown if ever smoked How Often Do You Have a Drink Containing Alcohol: Unable to Obtain Recent Travel in [facility] within the Last 8 Weeks: No Recent Out of Country Travel within the Last 8 Weeks: No Immunization History Tetanus Immunization: Unable to Assess Exam Narrative Exam Narrative: GENERAL:Somnolent bordering or lethargic. Overweight. SKIN: Focused skin assessment warm/dry. HEAD: Atraumatic. Normocephalic. no goins's sign, No raccoons eyes EYES: Pupils equal and round. No scleral icterus. No injection or drainage. ENT: No nasal bleeding or discharge. Mucous membranes pink and moist. NECK: Trachea midline. No JVD. CARDIOVASCULAR: Regular rate and rhythm. No murmur appreciated. RESPIRATORY: No accessory muscle use. Clear to auscultation. Breath sounds equal bilaterally. GASTROINTESTINAL: Abdomen soft, non-tender, nondistended. Hepatic and splenic margins not palpable. MUSCULOSKELETAL: No obvious deformities. No clubbing. No cyanosis. No edema. NEUROLOGICAL: Awake and alert. 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 No obvious cranial nerve deficit. 5 out of 5 strength in left upper extremity. She does follow commands in all 4 extremities. PSYCHIATRIC: Appropriate mood and affect; insight and judgment normal. Course Initial Documented Vital Signs Temperature 97.8 F 07/13/18 19:16 Pulse Rate 100 H 07/13/18 19:16 Respiratory Rate 20 07/13/18 19:16 Blood Pressure 202/94 H 07/13/18 19:16 Pulse Oximetry 97 07/13/18 19:16 Last Documented Vital Signs Temperature 97.8 F 07/13/18 19:16 Pulse Rate 122 H 07/14/18 01:00 Respiratory Rate 28 H 07/14/18 01:00 Blood Pressure 155/66 H 07/14/18 01:00 Pulse Oximetry 91 L 07/14/18 01:00 Medical Decision Making [facility] Narrative Medical decision making narrative: Patient room to the emergency department, certainly she is very somnolent bordering on lethargic but there is no acute focalized weakness in this patient. She is alert and awake and oriented but certainly very somnolent. Patient initial workup including CT head urinalysis is significant for only a troponin of 0.06, there is no urinary tract infection , no pneumonia and no acute abnormality on CT the head. Not having identified the cause of her altered mental status the patient's blood pressure was controlled is hypertensive emergency was considered. It was further controlled by Dr. Loya after admission to [facility]. TSH urine drug screen were added. Will be admitted to Dr. Loya service for further monitoring and workup. Medical Screen Exam Complete: Yes Emergency Medical Condition: Yes Lab Data Result diagrams: 07/13/18 19:15 07/13/18 19:15 Lab Results 07/13/18 07/13/18 07/13/18 Range/Units 19:05 19:15 19:15 WBC 9.9 (4.0-11.0) th/mm3 RBC 4.60 (4.00-5.30) mil/mm3 Hgb 12.7 (11.6-15.3) gm/dL Hct 40.5 (35.0-46.0) % MCV 88.2 (80.0-100.0) fL MCH 27.6 (27.0-34.0) pg MCHC 31.3 L (32.0-36.0) % RDW 16.6 (11.6-17.2) % Plt Count 353 (150-450) th/mm3 MPV 8.8 (7.0-11.0) fL Neut % (Auto) 78.9 H (16.0-70.0) % Lymph % (Auto) 11.1 (9.0-44.0) % [place] % (Auto) 9.0 H (0.0-8.0) % Eos % (Auto) 0.2 (0.0-4.0) % Baso % (Auto) 0.8 (0.0-2.0) % Neut # (Auto) 7.8 H (1.8-7.7) th/mm3 Lymph # (Auto) 1.1 (1.0-4.8) th/mm3 [place] # (Auto) 0.9 (0.0-0.9) th/mm3 Eos # (Auto) 0.0 (0.0-0.4) th/mm3 Baso # (Auto) 0.1 (0.0-0.2) th/mm3 WBC Differential . Differential Comment Auto diff final Sodium 140 (136-145) meq/L Potassium 3.2 L (3.5-5.1) meq/L Chloride 104 (98-107) meq/L Carbon Dioxide 28.7 (21.0-32.0) meq/L Anion Gap 7 (5-15) meq/L BUN 22 H (7-18) mg/dL Creatinine 1.00 (0.50-1.00) mg/dL Estimated GFR 66 L (>89) mL/min Random Glucose 136 H (74-106) mg/dL Calcium 9.7 (8.5-10.1) mg/dL Magnesium 1.5 (1.5-2.5) mg/dL Total Bilirubin 0.5 (0.2-1.0) mg/dL AST 26 (15-37) U/L ALT 16 (10-53) U/L Alkaline Phosphatase 162 H (45-117) U/L Troponin I 0.06 H (0.02-0.05) ng/mL Total Protein 8.0 (6.4-8.2) g/dL Albumin 3.7 (3.4-5.0) g/dL TSH Cancelled 1.600 Urine Color (Yellw/Straw) Urine Clarity (Clear) Urine pH (5.0-8.5) Ur Specific [place] (1.002-1.035) Urine Protein (Neg-Trace) mg/dL Urine Glucose (UA) (Negative) mg/dL Urine Ketones (Negative) mg/dL Urine Occult Blood (Negative) Urine Nitrate (Negative) Urine Bilirubin (Negative) Urine Urobilinogen (Less than 2) mg/dL Ur Leukocyte Esterase (Negative) Urine RBC (0-3) /hpf Urine WBC (0-5) /hpf Ur Squamous Epith Cells (0-5) /hpf Urine Mucus (Occasional) /lpf Micro UA Comment Ur Microscopic Review Urine Culture Comments Serum Alcohol Cancelled Less than 3 07/13/18 Range/Units 21:00 WBC (4.0-11.0) th/mm3 RBC (4.00-5.30) mil/mm3 Hgb (11.6-15.3) gm/dL Hct (35.0-46.0) % MCV (80.0-100.0) fL MCH (27.0-34.0) pg MCHC (32.0-36.0) % RDW (11.6-17.2) % Plt Count (150-450) th/mm3 MPV (7.0-11.0) fL Neut % (Auto) (16.0-70.0) % Lymph % (Auto) (9.0-44.0) % [place] % (Auto) (0.0-8.0) % Eos % (Auto) (0.0-4.0) % Baso % (Auto) (0.0-2.0) % Neut # (Auto) (1.8-7.7) th/mm3 Lymph # (Auto) (1.0-4.8) th/mm3 [place] # (Auto) (0.0-0.9) th/mm3 Eos # (Auto) (0.0-0.4) th/mm3 Baso # (Auto) (0.0-0.2) th/mm3 WBC Differential Differential Comment Sodium (136-145) meq/L Potassium (3.5-5.1) meq/L Chloride (98-107) meq/L Carbon Dioxide (21.0-32.0) meq/L Anion Gap (5-15) meq/L BUN (7-18) mg/dL Creatinine (0.50-1.00) mg/dL Estimated GFR (>89) mL/min Random Glucose (74-106) mg/dL Calcium (8.5-10.1) mg/dL Magnesium (1.5-2.5) mg/dL Total Bilirubin (0.2-1.0) mg/dL AST (15-37) U/L ALT (10-53) U/L Alkaline Phosphatase (45-117) U/L Troponin I (0.02-0.05) ng/mL Total Protein (6.4-8.2) g/dL Albumin (3.4-5.0) g/dL TSH Urine Color [place] (Yellw/Straw) Urine Clarity Hazy H (Clear) Urine pH 5.0 (5.0-8.5) Ur Specific [place] 1.026 (1.002-1.035) Urine Protein 500 or greater (Neg-Trace) mg/dL Urine Glucose (UA) Negative (Negative) mg/dL Urine Ketones Trace H (Negative) mg/dL Urine Occult Blood Negative (Negative) Urine Nitrate Negative (Negative) Urine Bilirubin Negative (Negative) Urine Urobilinogen 2.0 H (Less than 2) mg/dL Ur Leukocyte Esterase Trace H (Negative) Urine RBC 1 (0-3) /hpf Urine WBC 2 (0-5) /hpf Ur Squamous Epith Cells 5 (0-5) /hpf Urine Mucus Moderate H (Occasional) /lpf Micro UA Comment Cath-culture not ind Ur Microscopic Review Not Reportable Urine Culture Comments Cath-cult not ind Serum Alcohol Imaging Data Radiologist's impression: Chest X-Ray 07/13/18 19:30 CONCLUSION: Cardiomegaly. Minimal basilar atelectasis. No effusion or pneumothorax. Head CT 07/13/18 19:30 CONCLUSION: 1. Stable appearance with no evidence of hemorrhage or mass effect. . Discharge Plan Discharge Disposition Patient Disposition: 30 Still Patient Discharge Condition Condition: Fair Discharge Details Diagnosis: Altered mental status Physicians Team ED Provider: Sean Lemon Primary Care Provider: Cipriano Carmichael Attending Provider: Rafaela Loya Other Providers: Emanuel Castellanos ; Naila Williamson Discharge Interventions Interventions: Vital Signs Last Done: 07/13/18 19:30 Status ED Status: Admitted Observation Patient
[2018-07-13 20:16] LABS: Alkaline Phosphatase 162 U/L (45-117); Troponin I 0.06 ng/mL (0.02-0.05)
[2018-07-13 21:33] LABS: Bilirubin,Urine Negative (Negative); Clarity,Urine Hazy (Clear); Color,Urine Amber (Yellw/Straw); Glucose,Urine (UA) Negative (Negative); Leukocyte Esterase,Urine Trace (Negative); Mucus,Urine Moderate /lpf (Occasional); Nitrite,Urine Negative (Negative); Specific Gravity,Urine 1.026 (1.002-1.035); Squamous Epithelial Cell,Urine 5 /hpf (0-5)
[2018-07-13] MEDS ORDERED: hydrALAZINE HCl Inj 20 MG/ML Vial IV.PUSH ONE (22:26)
[2018-07-13] MEDS ORDERED: hydrALAZINE HCl Inj 20 MG/ML Vial ONE (23:37)
[2018-07-14] MEDS ORDERED: *Labetalol HCl Inj 100 MG/20 ML Vial PERIprocedural Use ONLY IV.PUSH ONE (00:21)
[2018-07-14] MEDS ORDERED: Labetalol HCl Inj 100 MG/20 ML Vial IV.PUSH ONE (00:30)
[2018-07-14] MEDS ORDERED: Dextrose 50% in Water 50 ML Vial IV.PUSH PRN (00:50)
[2018-07-14] MEDS ORDERED: Acetaminophen 325 MG Tablet PO PRN (00:50)
[2018-07-14] MEDS ORDERED: Bisacodyl 10 MG Supp RECTAL PRN (00:50)
--- NOTE | 2018-07-14 01:08 | P.HP ---
History of Present Illness Service: [facility] Primary Care Physician: Cipriano Carmichael History of Present Illness: 72 old female with a past medical history significant for diabetes mellitus, hyperlipidemia and irritable bowel syndrome presents to the emergency department for evaluation of altered mental status. At the time of our interview, the patient cannot tell me where she is, she does not know the year and she does not know why she is in the hospital. Per ED documentation the patient has a history of previous CVA with right-sided deficits who is normally alert and active was brought to the emergency department for the evaluation of altered mental status. Apparently, her department was called twice for the patient today. On first visit they assisted the patient up from the floor where she had fallen. The second time EMS was called because she was not acting herself. The patient is confused and unable to provide any additional details. The patient denies CP/SOB, no abd pain/N/V/D. No new focal neurologic deficits. No fever/chills. HPI/history limited by AMS. 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 / EMT - Medical History Medical History: Medical History (Last Updated 07/14/18 @ 01:01 by Rafaela Loya MD) CVA (cerebral vascular accident) Diabetes HLD (hyperlipidemia) IBS (irritable bowel syndrome) - Surgical History Surgical History: Surgical History (Last Reviewed 07/14/18 @ 01:01 by Rafaela Loya MD) History of knee replacement - Family History Family History: Family History (Last Updated 07/14/18 @ 01:02 by Rafaela Loya MD) Other Family history unknown - Tobacco History Smoking Status: Unknown if ever smoked - Alcohol History How Often Do You Have a Drink Containing Alcohol: Unable to Obtain - Substance Use History Substance History: Unable to Obtain - Travel History Recent Travel in the [place] Within the Last 8 Weeks: No Recent Travel Out of the Country Within the Last 8 Weeks: No - Immunization History Tetanus Immunization: Unable to Assess Medications and Allergies Active Medications: Active Medications Acetaminophen (Tylenol) 650 mg PO Q4H PRN PRN Reason: Temp > 100.4 Atorvastatin Calcium (Lipitor) 10 mg PO DAILY SHAMA Bisacodyl (Dulcolax Supp) 10 mg RECTAL DAILY PRN PRN Reason: SEVERE CONSITIPATION Sodium Chloride (Ns Flush) 2 ml IV.FLUSH PRN PRN PRN Reason: FLUSH AFTER USING IV ACCESS Allergies Allergy/AdvReac Type Severity Reaction Status Date / Time aspirin Allergy Intermediate GI BLEED Unverified 07/18/17 12:28 *MDRO Multi-Drug Resistant Allergy Unknown Uncoded 07/18/17 12:28 Organism Home Medications Medication Instructions Recorded Confirmed Type atorvastatin 10 mg PO DAILY 07/13/18 07/13/18 History glipizide 5 mg PO DAILY 07/13/18 07/13/18 History linaclotide [Linzess] 145 mcg PO DAILY 07/13/18 07/13/18 History metformin 850 mg PO TID 07/13/18 07/13/18 History solifenacin [Vesicare] 10 mg PO DAILY 07/13/18 07/13/18 History sucralfate 1 g PO Q6H 07/13/18 07/13/18 History Exam Vital signs: Vital Signs 07/13/18 19:16 07/13/18 19:30 07/13/18 20:31 Temperature 97.8 F Pulse Rate 100 H 98 H Respiratory Rate 20 20 Blood Pressure 202/94 H 214/111 H Pulse Oximetry 97 99 97 Intake & Output 07/13/18 07/13/18 07/14/18 06:59 18:59 06:59 Weight 113.398 kg Narrative: Gen.: No acute distress Head: Normocephalic. Atraumatic. EENT: Pupils equal round and reactive to light. Nose without drainage. Airway intact. Throat without injection. Cardiovascular: Tachycardic. Regular rhythm. No murmurs, rubs or gallops. Respiratory: Lungs clear to auscultation bilaterally. No wheezes or rhonchi. Abdomen: Soft, nontender, nondistended. No peritoneal signs. Musculoskeletal: No gross deformities. No edema. Skin: No obvious rashes or erythema. Neuro: Cranial nerves II through XII grossly intact. Residual right-sided weakness that is baseline. Oriented only to self. His all 4 extremities spontaneously. Results - Labs CBC & Chem 7: 07/13/18 19:15 07/13/18 19:15 Labs: Laboratory Results - last 24 hr 07/13/18 07/13/18 07/13/18 19:05 19:15 19:15 WBC 9.9 RBC 4.60 Hgb 12.7 Hct 40.5 MCV 88.2 MCH 27.6 MCHC 31.3 L RDW 16.6 Plt Count 353 MPV 8.8 Neut % (Auto) 78.9 H Lymph % (Auto) 11.1 [place] % (Auto) 9.0 H Eos % (Auto) 0.2 Baso % (Auto) 0.8 Neut # (Auto) 7.8 H Lymph # (Auto) 1.1 [place] # (Auto) 0.9 Eos # (Auto) 0.0 Baso # (Auto) 0.1 WBC Differential . Differential Comment Auto diff final Sodium 140 Potassium 3.2 L Chloride 104 Carbon Dioxide 28.7 Anion Gap 7 BUN 22 H Creatinine 1.00 Estimated GFR 66 L Random Glucose 136 H Calcium 9.7 Magnesium 1.5 Total Bilirubin 0.5 AST 26 ALT 16 Alkaline Phosphatase 162 H Troponin I 0.06 H Total Protein 8.0 Albumin 3.7 TSH Cancelled Urine Color Urine Clarity Urine pH Ur Specific [place] Urine Protein Urine Glucose (UA) Urine Ketones Urine Occult Blood Urine Nitrate Urine Bilirubin Urine Urobilinogen Ur Leukocyte Esterase Urine RBC Urine WBC Ur Squamous Epith Cells Urine Mucus Micro UA Comment Ur Microscopic Review Urine Culture Comments Serum Alcohol Cancelled 07/13/18 21:00 WBC RBC Hgb Hct MCV MCH MCHC RDW Plt Count MPV Neut % (Auto) Lymph % (Auto) [place] % (Auto) Eos % (Auto) Baso % (Auto) Neut # (Auto) Lymph # (Auto) [place] # (Auto) Eos # (Auto) Baso # (Auto) WBC Differential Differential Comment Sodium Potassium Chloride Carbon Dioxide Anion Gap BUN Creatinine Estimated GFR Random Glucose Calcium Magnesium Total Bilirubin AST ALT Alkaline Phosphatase Troponin I Total Protein Albumin TSH Urine Color [place] Urine Clarity Hazy H Urine pH 5.0 Ur Specific [place] 1.026 Urine Protein 500 or greater Urine Glucose (UA) Negative Urine Ketones Trace H Urine Occult Blood Negative Urine Nitrate Negative Urine Bilirubin Negative Urine Urobilinogen 2.0 H Ur Leukocyte Esterase Trace H Urine RBC 1 Urine WBC 2 Ur Squamous Epith Cells 5 Urine Mucus Moderate H Micro UA Comment Cath-culture not ind Ur Microscopic Review Not Reportable Urine Culture Comments Cath-cult not ind Serum Alcohol - Imaging Impressions Chest X-Ray 07/13/18 19:30 CONCLUSION: Cardiomegaly. Minimal basilar atelectasis. No effusion or pneumothorax. Head CT 07/13/18 19:30 CONCLUSION: 1. Stable appearance with no evidence of hemorrhage or mass effect. . Caprini VTE Risk Assessment Caprini VTE Risk Assessment: Moderate/High Risk (score >= 2) Caprini Risk Assessment Model: Point Value = 1 Point Value = 2 Point Value = 3 Point Value = 5 Age 41-60 Minor surgery BMI > 25 kg/m2 Swollen legs Varicose veins or History of unexplained or recurrent spontaneous Oral contraceptives or hormone replacement Sepsis (< 1 month) Serious lung disease, including pneumonia (< 1 month) Abnormal pulmonary function Acute myocardial infarction Congestive heart failure (< 1 month) History of inflammatory bowel disease Medical patient at bed rest Age 61-74 Arthroscopic surgery Major open surgery (> 45 min) Laparoscopic surgery (> 45 min) Malignancy Confined to bed (> 72 hours) Immobilizing plaster cast Central venous access Age >= 75 History of VTE Family history of VTE Factor V Leiden Prothrombin [id number] Lupus anticoagulant Anticardiolipin antibodies Elevated serum homocysteine Heparin-induced thrombocytopenia Other congenital or acquired thrombophilia Stroke (< 1 month) Elective arthroplasty Hip, pelvis, or leg fracture Acute spinal cord injury (< 1 month) Prophylaxis Regimen: Total Risk Factor Score Risk Level Prophylaxis Regimen 0-1 Low Early ambulation 2 Moderate Order ONE of the following: *Sequential Compression Device (SCD) *Heparin 5000 units SQ BID 3-4 Higher Order ONE of the following medications: *Heparin 5000 units SQ TID *Enoxaparin/Lovenox 40 mg SQ daily (WT < 150 kg, CrCl > 30 mL/min) *Enoxaparin/Lovenox 30 mg SQ daily (WT < 150 kg, CrCl > 10-29 mL/min) *Enoxaparin/Lovenox 30 mg SQ BID (WT < 150 kg, CrCl > 30 mL/min) AND/OR *Sequential Compression Device (SCD) 5 or more Highest Order ONE of the following medications: *Heparin 5000 units SQ TID (Preferred with Epidurals) *Enoxaparin/Lovenox 40 mg SQ daily (WT < 150 kg, CrCl > 30 mL/min) *Enoxaparin/Lovenox 30 mg SQ daily (WT < 150 kg, CrCl > 10-29 mL/min) *Enoxaparin/Lovenox 30 mg SQ BID (WT < 150 kg, CrCl > 30 mL/min) AND *Sequential Compression Device (SCD) Assessment and Plan - Plan Assessment/plan: 1. Altered mental status/Hypertensive urgency Head CT negative for acute process May be hypertensive encephalopathy Status post hydralazine and labetalol in the ED Monitor blood pressure closely If patient remains hypertensive will start Cardene drip Ammonia/urine drug screen/alcohol levels pending MRI pending Neurology consulted, appreciate assistance 2. Elevated troponin Initial troponin 0.06 EKG shows sinus rhythm with PVCs, pulse 91, personally reviewed. No ST segment elevation or depression. ACS rule out pending; serial troponins/EKGs 3. Diabetes mellitus Holding home antihyperglycemic's Sliding-scale insulin Monitor blood glucose 4. Hyperlipidemia/IBS Continue home Linzess and statin FEN N.p.o. Electrolytes: Status post repletion of potassium, monitor BMP NS at 70 cc/hour Heparin
[2018-07-14 02:50] LABS: Troponin I 0.06 ng/mL (0.02-0.05)
[2018-07-14 03:02] LABS: CKMB Percent 0.8 % (0.0-4.0); Creatine Kinase MB 4.6 ng/mL (0.5-3.6)
[2018-07-14] MEDS: Heparin - SQ 10,000 UNITS/ML Vial SQ SCH ×3 (03:34→17:15)
[2018-07-14] MEDS: Insulin NovoLOG Aspart Correctional Sugar Inj SQ SCH ×5 (05:08→21:39)
[2018-07-14] MEDS: Sod Chloride 0.9% Inj 1,000 ML IV.CONT SCH ×2 (07:45→16:07)
[2018-07-14] MEDS: Senna/Docusate Sodium 8.6/50 MG Tablet PO SCH ×2 (08:31→21:40)
[2018-07-14] MEDS: Tolterodine Tartrate LA 4 MG Capsule PO SCH (08:31)
--- NOTE | 2018-07-14 08:51 | P.PN ---
Subjective Interval history: Follow-up encephalopathy. Today she is awake, alert and oriented. Does not recall what happened. History of CVA. She came when an elevated blood pressure states she takes BP medications. Discussed with nursing to obtain updated med list Physical Exam Vital signs: Vital Signs 07/13/18 19:16 07/13/18 19:30 07/13/18 20:31 Temperature 97.8 F Pulse Rate 100 H 98 H Respiratory Rate 20 20 Blood Pressure 202/94 H 214/111 H Pulse Oximetry 97 99 97 07/13/18 22:30 07/13/18 23:00 07/14/18 00:00 Temperature Pulse Rate 134 H 134 H 126 H Respiratory Rate 32 H 29 H 35 H Blood Pressure 213/127 H 188/102 H 156/87 H Pulse Oximetry 95 95 93 L 07/14/18 01:00 07/14/18 02:00 07/14/18 03:00 Temperature Pulse Rate 122 H 94 H 96 H Respiratory Rate 28 H 19 15 Blood Pressure 155/66 H 194/90 H 138/92 H Pulse Oximetry 91 L 97 92 L 07/14/18 04:00 07/14/18 06:00 07/14/18 08:00 Temperature Pulse Rate 105 H 84 Respiratory Rate 20 19 Blood Pressure 134/81 144/82 H Pulse Oximetry 94 L 100 94 L Intake & Output 07/13/18 07/14/18 07/14/18 18:59 06:59 18:59 Intake Total 0 / 0 Balance 0 / 0 Weight 103 kg Intake: Oral 0 / 0 Other: # Voids 1 # Bowel Movements 0 Weight On Admission 103 kg Narrative: Gen.: No acute distress Cardiovascular: RRR No murmurs, rubs or gallops. Respiratory: Lungs clear to auscultation bilaterally. No wheezes or rhonchi. Abdomen: Soft, nontender, nondistended. No peritoneal signs. Musculoskeletal: No gross deformities. No edema. Skin: No obvious rashes or erythema. Neuro: Cranial nerves II through XII grossly intact. Residual right-sided weakness that is baseline. Oriented. Moves all 4 extremities spontaneously. Results - Labs CBC & Chem 7: 07/13/18 19:15 07/13/18 19:15 Laboratory Results - last 24 hr 07/13/18 07/13/18 07/13/18 19:05 19:15 19:15 WBC 9.9 RBC 4.60 Hgb 12.7 Hct 40.5 MCV 88.2 MCH 27.6 MCHC 31.3 L RDW 16.6 Plt Count 353 MPV 8.8 Neut % (Auto) 78.9 H Lymph % (Auto) 11.1 [place] % (Auto) 9.0 H Eos % (Auto) 0.2 Baso % (Auto) 0.8 Neut # (Auto) 7.8 H Lymph # (Auto) 1.1 [place] # (Auto) 0.9 Eos # (Auto) 0.0 Baso # (Auto) 0.1 WBC Differential . Differential Comment Auto diff final Sodium 140 Potassium 3.2 L Chloride 104 Carbon Dioxide 28.7 Anion Gap 7 BUN 22 H Creatinine 1.00 Estimated GFR 66 L POC Glucose Random Glucose 136 H Calcium 9.7 Magnesium 1.5 Total Bilirubin 0.5 AST 26 ALT 16 Alkaline Phosphatase 162 H Ammonia Total Creatine Kinase CK-MB (CK-2) CK-MB (CK-2) % Troponin I 0.06 H Total Protein 8.0 Albumin 3.7 TSH Cancelled 1.600 Urine Color Urine Clarity Urine pH Ur Specific [place] Urine Protein Urine Glucose (UA) Urine Ketones Urine Occult Blood Urine Nitrate Urine Bilirubin Urine Urobilinogen Ur Leukocyte Esterase Urine RBC Urine WBC Ur Squamous Epith Cells Urine Mucus Micro UA Comment Ur Microscopic Review Urine Culture Comments Serum Alcohol Cancelled Less than 3 07/13/18 07/14/18 07/14/18 21:00 01:45 01:45 WBC RBC Hgb Hct MCV MCH MCHC RDW Plt Count MPV Neut % (Auto) Lymph % (Auto) [place] % (Auto) Eos % (Auto) Baso % (Auto) Neut # (Auto) Lymph # (Auto) [place] # (Auto) Eos # (Auto) Baso # (Auto) WBC Differential Differential Comment Sodium Potassium Chloride Carbon Dioxide Anion Gap BUN Creatinine Estimated GFR POC Glucose Random Glucose Calcium Magnesium Total Bilirubin AST ALT Alkaline Phosphatase Ammonia 17 Total Creatine Kinase 606 H CK-MB (CK-2) 4.6 H CK-MB (CK-2) % 0.8 Troponin I 0.06 H Total Protein Albumin TSH Urine Color [place] Urine Clarity Hazy H Urine pH 5.0 Ur Specific [place] 1.026 Urine Protein 500 or greater Urine Glucose (UA) Negative Urine Ketones Trace H Urine Occult Blood Negative Urine Nitrate Negative Urine Bilirubin Negative Urine Urobilinogen 2.0 H Ur Leukocyte Esterase Trace H Urine RBC 1 Urine WBC 2 Ur Squamous Epith Cells 5 Urine Mucus Moderate H Micro UA Comment Cath-culture not ind Ur Microscopic Review Not Reportable Urine Culture Comments Cath-cult not ind Serum Alcohol 07/14/18 07/14/18 05:07 07:45 WBC RBC Hgb Hct MCV MCH MCHC RDW Plt Count MPV Neut % (Auto) Lymph % (Auto) [place] % (Auto) Eos % (Auto) Baso % (Auto) Neut # (Auto) Lymph # (Auto) [place] # (Auto) Eos # (Auto) Baso # (Auto) WBC Differential Differential Comment Sodium Potassium Chloride Carbon Dioxide Anion Gap BUN Creatinine Estimated GFR POC Glucose 124 H 137 H Random Glucose Calcium Magnesium Total Bilirubin AST ALT Alkaline Phosphatase Ammonia Total Creatine Kinase CK-MB (CK-2) CK-MB (CK-2) % Troponin I Total Protein Albumin TSH Urine Color Urine Clarity Urine pH Ur Specific [place] Urine Protein Urine Glucose (UA) Urine Ketones Urine Occult Blood Urine Nitrate Urine Bilirubin Urine Urobilinogen Ur Leukocyte Esterase Urine RBC Urine WBC Ur Squamous Epith Cells Urine Mucus Micro UA Comment Ur Microscopic Review Urine Culture Comments Serum Alcohol - Imaging ITS Impressions Chest X-Ray 07/13/18 19:30 CONCLUSION: Cardiomegaly. Minimal basilar atelectasis. No effusion or pneumothorax. Head CT 07/13/18 19:30 CONCLUSION: 1. Stable appearance with no evidence of hemorrhage or mass effect. . - Procedures none Assessment and Plan - Plan 1. Altered mental status/Hypertensive urgency history of CVA Head CT negative for acute process May be hypertensive encephalopathy Status post hydralazine and labetalol in the ED Monitor blood pressure closely If patient remains hypertensive will start Cardene drip. Will order as needed clonidine, IV Vasotec and IV hydralazine urine drug screen pending MRI pending consider EEG Follow-up EKG with PVC Neurology consulted, appreciate assistance Patient takes BP medications and antiplatelets nurse to update med list 2. Elevated troponin Initial troponin 0.06 EKG shows sinus rhythm with PVCs, pulse 91, personally reviewed. No ST segment elevation or depression. ACS rule out pending; serial troponins/EKGs Allergic to aspirin 3. Diabetes mellitus Holding home antihyperglycemic's Sliding-scale insulin Monitor blood glucose 4. Hyperlipidemia/IBS Continue home Linzess and statin FEN Electrolytes: Status post repletion of potassium, monitor BMP NS at 70 cc/hour Heparin Discharge Planning: [facility] overflow. Patient may go to [facility] if MRI negative
[2018-07-14 10:05] LABS: Troponin I 0.05 ng/mL (0.02-0.05)
[2018-07-14 10:17] LABS: CKMB Percent 0.7 % (0.0-4.0); Creatine Kinase MB 3.7 ng/mL (0.5-3.6)
[2018-07-14 10:30] LABS: Amphetamine Screen,Urine Neg (Neg); Barbiturate Screen,Urine Neg (Neg); Cannabinoid Screen,Urine Neg (Neg); Cocaine Screen,Urine Neg (Neg)
[2018-07-14 10:35] LABS: Opiate Screen,Urine Neg (Neg)
[2018-07-14] MEDS ORDERED: LINZESS 145 MG PO SCH (12:00)
--- NOTE | 2018-07-14 12:17 | MB ---
cc: Naila Williamson MD DATE: 07/14/2018 REASON FOR CONSULTATION: Encephalopathy. HISTORY OF PRESENT ILLNESS: This is a pleasant 72-year-old woman with history of diabetes, hyperlipidemia, IBS, history of stroke, probable hypertension, who comes in with what seems to be altered mental status. Normally, she has some residual right-sided weakness and uses a walker, but otherwise alert and active. Apparently, she may have fallen down also, not acting herself. She seems to be near baseline now. She was found to be hypertensive as well. PAST MEDICAL HISTORY: As stated. PAST SURGICAL HISTORY: Knee replacement. FAMILY HISTORY: Noncontributory. SOCIAL HISTORY: She does not smoke and does not drink per chart. HOME MEDICINES: Refer to OCT. PHYSICAL EXAMINATION: VITAL SIGNS: Currently, her temperature is 98.7, pulse 96, respiratory rate 28, blood pressure 150/79. Initial blood pressure was 202/94, then still in the 200 systolic and 100 diastolic range. NECK: Supple. HEART: Regular. NEUROLOGIC: She is awake and alert. She knows she is in the hospital. Speech is normal. She knows that Thanksgiving just past, but thought it was May. She knows it is 2017. Pupils reactive. Face looks symmetrical. She has some residual right-sided deficits at baseline. Left side is intact. Toes withdraw. Cerebellar normal on the left. LABORATORY DATA: Reviewed. CK 523. Her troponin 0.05, 0.06, 0.06 respectively. GFR 66. TSH is normal. Urine, moderate mucus, but no culture indicated. Tox screen was negative. Head CT is stable, but no hemorrhage or mass effect. Chest x-ray, cardiomegaly. IMPRESSION: Altered mental status. May be due to hypertensive encephalopathy. Her mental status seems to be improving. I know she will go and have an MRI of the brain to make sure she has not had any infarcts. If she does not take an aspirin, I would start her on a baby aspirin. Continue risk factor modification, diabetic control. She is already on a statin. Subcutaneous heparin for deep venous thrombosis prevention. Put her on fluids. Start her on a diabetic diet. Out of bed with physical therapy and continue adequate blood pressure control. If needed, put her on a Cardene drip. MD Riccardo Mercado , 11:57 AM , 12:04 PM
[2018-07-14] MEDS: Sucralfate 1 GM Tablet PO SCH ×3 (12:38→21:39)
--- NOTE | 2018-07-14 13:45 | ECG ---
Date Performed: 07/13/2018 Time Performed: 19:04:04 PTAGE: 72 years EKG: Sinus rhythm WITH OCCASIONAL VENTRICULAR PREMATURE COMPLEXES WITH OCCASIONAL SUPRAVENTRICULAR PREMATURE COMPLEXES NONSPECIFIC T-WAVE ABNORMALITY BORDERLINE ECG Since the PREVIOUS TRACING , no significant change noted PREVIOUS TRACIN08/15/2016 21.27 DOCTOR: Beny Montalvo Interpretating Date/Time 07/14/2018 13:43:06
--- NOTE | 2018-07-14 13:45 | ECG ---
Date Performed: 07/14/2018 Time Performed: 06:53:14 PTAGE: 72 years EKG: Sinus rhythm with PVC(s) with PAC(s). Extensive ST-T changes are nonspecific Borderline ECG Since the PREVIOUS TRACING , no significant change noted PREVIOUS TRACING DOCTOR: Beny Montalvo Interpretating Date/Time 07/14/2018 13:42:57
[2018-07-14] MEDS ORDERED: hydrALAZINE HCl Inj 20 MG/ML Vial IV.PUSH PRN (14:01)
[2018-07-14] MEDS ORDERED: Ibuprofen 400 MG Tablet PO PRN (14:49)
[2018-07-14] MEDS ORDERED: Naloxone Inj 0.4 MG/ML Vial IV.PUSH PRN (14:49)
--- NOTE | 2018-07-14 15:41 | MR ---
EXAM DATE: 07/14/2018 3:36 PM EST AGE/SEX: 72 years / Female INDICATIONS: Altered mental status. CLINICAL DATA: This is the patient's initial encounter. Patient reports that signs and symptoms have been present for 1 day and indicates a pain score of 4/10. MEDICAL/SURGICAL HISTORY: Hypertension. Diabetes mellitus type II. Total knee replacement, lef t. Total knee replacement, right. Right shoulder sx. COMPARISON: [facility] [place], 07/13/2018. . TECHNIQUE: Multiplanar, multisequence examination of the brain was performed without contrast. FINDINGS: Old infarction involving the insular cortex on the left with some hemosiderin deposition. Mild ex vac uo expansion of the hips lateral sulcal spaces and lateral ventricle. Nothing to suggest acute infarc tion. Nothing to suggest recent macroscopic hemorrhage. No evidence of brain mass. Patchy moderate ch ronic appearing white matter signal change. CONCLUSION: No definite acute intracranial findings. Electronically signed by: Geovanni Seth MD 07/14/2018 3:40 PM EST
[2018-07-14] MEDS: Methocarbamol 500 MG Tablet PO SCH ×2 (16:07→21:40)
[2018-07-15] MEDS: Heparin - SQ 10,000 UNITS/ML Vial SQ SCH ×3 (01:03→17:52)
[2018-07-15] MEDS: Ketorolac Inj 30 MG/ML (IVP) Vial IV.PUSH PRN ×2 (02:07→10:05)
[2018-07-15] MEDS: Sucralfate 1 GM Tablet PO SCH ×4 (03:29→22:21)
[2018-07-15] MEDS ORDERED: Chlorhexidine Gluconate 2% 1 Pack (2 Cloths) TOPICAL PRN (04:00)
[2018-07-15 04:38] LABS: Baso # (Auto) 0.1 th/mm3 (0.0-0.2); Baso % (Auto) 1.1 % (0.0-2.0); Eos # (Auto) 0.2 th/mm3 (0.0-0.4); Eos % (Auto) 2.3 % (0.0-4.0); Hematocrit 35.5 % (35.0-46.0); Lymph # (Auto) 1.3 th/mm3 (1.0-4.8); Lymph % (Auto) 15.3 % (9.0-44.0); Mean Corpuscular HGB Conc 33.9 % (32.0-36.0); Mean Corpuscular Hemoglobin 29.4 pg (27.0-34.0); Mean Corpuscular Volume 86.9 fL (80.0-100.0); Mean Platelet Volume 8.8 fL (7.0-11.0); Mono # (Auto) 0.9 th/mm3 (0.0-0.9); Mono % (Auto) 11.3 % (0.0-8.0); Neut # (Auto) 5.8 th/mm3 (1.8-7.7); Platelet Count 285 th/mm3 (150-450); Red Blood Count 4.09 mil/mm3 (4.00-5.30); Red Cell Distribution Width 16.3 % (11.6-17.2); White Blood Count 8.3 th/mm3 (4.0-11.0)
[2018-07-15] MEDS: Sod Chloride 0.9% Inj 1,000 ML IV.CONT SCH ×3 (04:44→22:10)
[2018-07-15] MEDS: Methocarbamol 500 MG Tablet PO SCH ×4 (04:44→22:20)
[2018-07-15] MEDS: Chlorhexidine Gluconate 2% 1 Pack (2 Cloths) TOPICAL SCH (04:45)
[2018-07-15 05:11] LABS: Anion Gap 10 meq/L (5-15); Blood Urea Nitrogen 17 mg/dL (7-18); Calcium 8.9 mg/dL (8.5-10.1); Carbon Dioxide 27.2 meq/L (21.0-32.0); Chloride 104 meq/L (98-107); Glomerular Filtration Rate Greater Than 89 mL/min (>89); Glucose,Random 127 mg/dL (74-106); Potassium 3.1 meq/L (3.5-5.1); Sodium 141 meq/L (136-145)
[2018-07-15] MEDS: Insulin NovoLOG Aspart Correctional Sugar Inj SQ SCH ×4 (07:46→22:22)
[2018-07-15] MEDS: Senna/Docusate Sodium 8.6/50 MG Tablet PO SCH ×2 (09:26→22:20)
[2018-07-15] MEDS: Tolterodine Tartrate LA 4 MG Capsule PO SCH (09:26)
[2018-07-15] MEDS ORDERED: Mag Sulf 1 gm/100 ml Premix 100 ML IV.SIG ONE (10:01)
[2018-07-15] MEDS: Potassium Bicarbonate 25 MEQ Effervescent Tablet PO SCH (10:11)
[2018-07-15] MEDS: Magnesium Oxide 400 MG Tablet PO SCH ×2 (10:46→22:21)
--- NOTE | 2018-07-15 12:13 | P.PN ---
Subjective Interval history: Arthritic pains. Cant remember pharmacy and PCP. Unable to reach contact. ST Physical Exam Vital signs: Vital Signs 07/14/18 13:00 07/14/18 13:01 07/14/18 14:00 Temperature Pulse Rate 100 H 97 H 103 H Respiratory Rate 25 H 26 H 32 H Blood Pressure 167/96 H Pulse Oximetry 97 96 96 07/14/18 14:02 07/14/18 14:15 07/14/18 15:00 Temperature Pulse Rate 109 H 110 H 101 H Respiratory Rate 33 H 29 H 33 H Blood Pressure 216/81 H 161/91 H Pulse Oximetry 95 95 94 L 07/14/18 16:00 07/14/18 17:00 07/14/18 18:00 Temperature 98.2 F Pulse Rate 101 H 100 H 107 H Respiratory Rate 22 24 26 H Blood Pressure Pulse Oximetry 95 77 L 07/14/18 18:53 07/14/18 19:00 07/14/18 20:00 Temperature 98.5 F Pulse Rate 110 H 107 H 105 H Respiratory Rate 27 H 25 H 27 H Blood Pressure 122/93 H Pulse Oximetry 41 L 50 L 42 L 07/14/18 21:00 07/14/18 22:00 07/14/18 22:18 Temperature Pulse Rate 98 H 103 H 102 H Respiratory Rate 21 28 H 37 H Blood Pressure 170/94 H Pulse Oximetry 94 L 94 L 94 L 07/14/18 22:30 07/14/18 23:00 07/14/18 23:04 Temperature Pulse Rate 99 H 98 H 106 H Respiratory Rate 31 H 25 H 27 H Blood Pressure 172/73 H 166/99 H Pulse Oximetry 93 L 95 92 L 07/14/18 23:31 07/15/18 00:00 07/15/18 00:54 Temperature 99.3 F Pulse Rate 104 H 100 H 98 H Respiratory Rate 22 26 H 33 H Blood Pressure 140/88 135/93 H 146/86 H Pulse Oximetry 94 L 94 L 95 07/15/18 01:00 07/15/18 01:31 07/15/18 01:33 Temperature Pulse Rate 101 H 108 H 103 H Respiratory Rate 27 H 42 H 31 H Blood Pressure 157/82 H 154/115 H 174/94 H Pulse Oximetry 94 L 88 L 92 L 07/15/18 02:00 07/15/18 02:31 07/15/18 03:00 Temperature Pulse Rate 104 H 102 H 106 H Respiratory Rate 31 H 21 35 H Blood Pressure 164/76 H 158/91 H Pulse Oximetry 93 L 93 L 92 L 07/15/18 03:31 07/15/18 04:00 07/15/18 04:02 Temperature Pulse Rate 101 H 112 H 109 H Respiratory Rate 21 26 H 23 Blood Pressure 143/87 H 175/77 H 133/83 Pulse Oximetry 91 L 90 L 92 L 07/15/18 05:13 07/15/18 05:43 07/15/18 08:00 Temperature 97.7 F 97.8 F Pulse Rate 99 H 101 H 120 H Respiratory Rate 22 22 Blood Pressure 142/80 H 144/91 H Pulse Oximetry 94 L 92 L 07/15/18 08:15 Temperature Pulse Rate Respiratory Rate 22 Blood Pressure Pulse Oximetry Intake & Output 07/14/18 07/15/18 07/15/18 18:59 06:59 18:59 Intake Total 600 / 600 1000 / 1000 Balance 600 / 600 1000 / 1000 Weight 104.5 kg Intake: IV 1000 / 1000 NS Inj 1,000 ML @ 70 mls/hr IV. 1000 / 1000 CONT .[id number] [facility] Rx#:[id number] Oral 600 / 600 Other: # Incontinent Voids 3 Narrative: Gen.: No acute distress Cardiovascular: RRR No murmurs, rubs or gallops. Respiratory: Lungs clear to auscultation bilaterally. No wheezes or rhonchi. Abdomen: Soft, nontender, nondistended. No peritoneal signs. Musculoskeletal: SWollen tender warm left wrist and b/l knees Skin: No obvious rashes or erythema. Neuro: Cranial nerves II through XII grossly intact. Residual right-sided weakness that is baseline. Oriented. Moves all 4 extremities spontaneously. Results - Labs CBC & Chem 7: 07/15/18 04:00 07/15/18 04:00 Laboratory Results - last 24 hr 07/14/18 07/14/18 07/14/18 04:55 12:32 16:51 WBC RBC Hgb Hct MCV MCH MCHC RDW Plt Count MPV Neut % (Auto) Lymph % (Auto) [place] % (Auto) Eos % (Auto) Baso % (Auto) Neut # (Auto) Lymph # (Auto) [place] # (Auto) Eos # (Auto) Baso # (Auto) WBC Differential Differential Comment Sodium Potassium Chloride Carbon Dioxide Anion Gap BUN Creatinine Estimated GFR POC Glucose 134 H 113 H Random Glucose Calcium Magnesium Nasal Screen MRSA (PCR) Not detected 07/14/18 07/15/18 07/15/18 20:25 04:00 04:00 WBC 8.3 RBC 4.09 Hgb 12.0 Hct 35.5 MCV 86.9 MCH 29.4 MCHC 33.9 RDW 16.3 Plt Count 285 MPV 8.8 Neut % (Auto) 70.0 Lymph % (Auto) 15.3 [place] % (Auto) 11.3 H Eos % (Auto) 2.3 Baso % (Auto) 1.1 Neut # (Auto) 5.8 Lymph # (Auto) 1.3 [place] # (Auto) 0.9 Eos # (Auto) 0.2 Baso # (Auto) 0.1 WBC Differential . Differential Comment Auto diff final Sodium 141 Potassium 3.1 L Chloride 104 Carbon Dioxide 27.2 Anion Gap 10 BUN 17 Creatinine 0.76 Estimated GFR Greater than 89 POC Glucose 170 H Random Glucose 127 H Calcium 8.9 D Magnesium Nasal Screen MRSA (PCR) 07/15/18 07/15/18 07/15/18 04:00 07:45 11:35 WBC RBC Hgb Hct MCV MCH MCHC RDW Plt Count MPV Neut % (Auto) Lymph % (Auto) [place] % (Auto) Eos % (Auto) Baso % (Auto) Neut # (Auto) Lymph # (Auto) [place] # (Auto) Eos # (Auto) Baso # (Auto) WBC Differential Differential Comment Sodium Potassium Chloride Carbon Dioxide Anion Gap BUN Creatinine Estimated GFR POC Glucose 139 H 163 H Random Glucose Calcium Magnesium 1.5 Nasal Screen MRSA (PCR) - Imaging Impressions Head MRI 07/14/18 00:00 CONCLUSION: No definite acute intracranial findings. - Procedures none Assessment and Plan - Plan 1. Altered mental status/Hypertensive urgency history of CVA Head CT negative for acute process May be hypertensive encephalopathy Status post hydralazine and labetalol in the ED Monitor blood pressure closely If patient remains hypertensive will start Cardene drip. Will order as needed clonidine, IV Vasotec urine drug screen neg MRI neg Follow-up EKG with PVC Neurology consulted, appreciate assistance Patient takes BP medications and antiplatelets nurse to update med list Start BB strict BP control CM to assist contacting family 2. Elevated troponin 2/2 above no CP EKG shows sinus rhythm with PVCs, pulse 91, personally reviewed. No ST segment elevation or depression. Allergic to aspirin 3. Diabetes mellitus Holding home antihyperglycemic's Sliding-scale insulin Monitor blood glucose 4. Hyperlipidemia/IBS Continue home Linzess and statin 5. Joint pains hx arthritis. Check inflammatory markers. RTC NSAIDS x 2 days with GI proph FEN Electrolytes: Status post repletion of potassium, monitor BMP Dc NS at 70 cc/hour Heparin Discharge Planning: Needs rehab pending PT
--- NOTE | 2018-07-15 12:47 | ECG ---
Date Performed: 07/15/2018 Time Performed: 10:23:00 PTAGE: 72 years EKG: SINUS TACHYCARDIA WITH OCCASIONAL SUPRAVENTRICULAR PREMATURE COMPLEXES NONSPECIFIC ST & T[address] ABNORMALITY ABNORMAL RHYTHM ECG Since the PREVIOUS TRACING , no significant change noted PREVIOUS TRACIN07/14/2018 06.53 DOCTOR: Beny Montalvo Interpretating Date/Time 07/15/2018 12:47:05
[2018-07-15] MEDS: Metoprolol Tartrate 50 MG Tablet PO SCH ×2 (14:42→22:21)
[2018-07-15] MEDS: Famotidine 20 MG Tablet PO SCH (22:21)
[2018-07-16] MEDS: Sucralfate 1 GM Tablet PO SCH ×4 (02:14→21:58)
[2018-07-16] MEDS: Heparin - SQ 10,000 UNITS/ML Vial SQ SCH ×3 (02:14→16:53)
[2018-07-16] MEDS: Chlorhexidine Gluconate 2% 1 Pack (2 Cloths) TOPICAL SCH (03:44)
[2018-07-16] MEDS: Methocarbamol 500 MG Tablet PO SCH ×3 (05:25→21:58)
--- NOTE | 2018-07-16 07:48 | P.PN ---
Subjective Interval history: Follow-up hypertension and joint pains. BP much improved on Lopressor. Uric acid elevated at 7 ESR 47 CRP 13.9, patient now states she has gout. Still unable to confirm home meds Physical Exam Vital signs: Vital Signs 07/15/18 08:00 07/15/18 08:15 07/15/18 12:00 Temperature 97.8 F 98.7 F Pulse Rate 120 H 105 H Respiratory Rate 22 22 18 Blood Pressure 144/91 H 155/97 H Pulse Oximetry 92 L 92 L 07/15/18 16:00 07/15/18 20:00 07/16/18 00:00 Temperature 99.3 F 100.0 F H 99.7 F H Pulse Rate 91 H 104 H 95 H Respiratory Rate 16 20 18 Blood Pressure 155/81 H 148/65 H 126/59 L Pulse Oximetry 92 L 92 L 92 L 07/16/18 01:22 07/16/18 04:00 Temperature 97.8 F Pulse Rate 87 Respiratory Rate 18 18 Blood Pressure 129/61 Pulse Oximetry 92 L Intake & Output 07/15/18 07/16/18 07/16/18 18:59 06:59 18:59 Intake Total 700 / 700 1360 / 1360 Output Total 800 / 800 800 / 800 Balance -100 / -100 560 / 560 Weight 105.8 kg Intake: IV 100 / 100 1000 / 1000 NS Inj 1,000 ML @ 70 mls/hr IV. 1000 / 1000 CONT .[id number] [facility] Rx#:[id number] Magnesium Sulfate 1 gm/D5W 100 100 / 100 ml Premix 100 ML @ 100 mls/hr IV.SIG ONCE ONE Rx#:[id number] Oral 600 / 600 360 / 360 Output: Urine 800 / 800 800 / 800 Other: # Voids 1 Narrative: Gen.: No acute distress Cardiovascular: RRR No murmurs, rubs or gallops. Respiratory: Lungs clear to auscultation bilaterally. No wheezes or rhonchi. Abdomen: Soft, nontender, nondistended. No peritoneal signs. Musculoskeletal: SWollen tender warm left wrist and b/l knees Skin: No obvious rashes or erythema. Neuro: Cranial nerves II through XII grossly intact. Residual right-sided weakness that is baseline. Oriented. Moves all 4 extremities spontaneously. Results - Labs CBC & Chem 7: 07/15/18 04:00 07/15/18 04:00 Laboratory Results - last 24 hr 07/15/18 07/15/18 07/15/18 04:00 07:45 11:35 ESR POC Glucose 139 H 163 H Uric Acid Magnesium 1.5 C-Reactive Protein Rheumatoid Factor Scrn Rheumatoid Factor Titer 07/15/18 07/15/18 07/15/18 13:25 16:47 22:04 ESR POC Glucose 133 H 150 H 163 H Uric Acid Magnesium C-Reactive Protein Rheumatoid Factor Scrn Rheumatoid Factor Titer 07/15/18 07/15/18 22:32 22:32 ESR 47 H POC Glucose Uric Acid 7.0 H Magnesium C-Reactive Protein 13.90 H Rheumatoid Factor Scrn Negative Rheumatoid Factor Titer Not Reportable - Procedures none Assessment and Plan - Plan 1. Altered mental status/Hypertensive urgency history of CVA. Improved Head CT negative for acute process May be hypertensive encephalopathy Status post hydralazine and labetalol in the ED Monitor blood pressure closely If patient remains hypertensive will start Cardene drip. Will order as needed clonidine, IV Vasotec urine drug screen neg MRI neg Follow-up EKG with PVC Neurology consulted, appreciate assistance Patient takes BP medications and antiplatelets nurse to update med list, continue Lopressor for now Continue BB strict BP control CM to assist contacting family 2. Elevated troponin 2/2 above no CP EKG shows sinus rhythm with PVCs, pulse 91, personally reviewed. No ST segment elevation or depression. Allergic to aspirin 3. Diabetes mellitus Holding home antihyperglycemic's Sliding-scale insulin Monitor blood glucose 4. Hyperlipidemia/IBS Continue home Linzess and statin 5. Gout exacerbation. Uric acid 7. RTC NSAIDS x 2 days with GI proph. Add colchicine FEN Electrolytes: Status post repletion of potassium, monitor BMP Dc NS at 70 cc/hour Heparin Discharge Planning: Needs rehab possibly tomorrow
[2018-07-16] MEDS: Insulin NovoLOG Aspart Correctional Sugar Inj SQ SCH ×4 (08:23→21:59)
[2018-07-16] MEDS: Famotidine 20 MG Tablet PO SCH ×2 (08:23→21:58)
[2018-07-16] MEDS: Tolterodine Tartrate LA 4 MG Capsule PO SCH (08:23)
[2018-07-16] MEDS: Senna/Docusate Sodium 8.6/50 MG Tablet PO SCH ×2 (08:23→21:58)
[2018-07-16] MEDS: Metoprolol Tartrate 50 MG Tablet PO SCH ×2 (08:23→21:58)
[2018-07-16] MEDS: Potassium Bicarbonate 25 MEQ Effervescent Tablet PO SCH (08:23)
[2018-07-16] MEDS: Magnesium Oxide 400 MG Tablet PO SCH ×2 (08:26→21:59)
[2018-07-16 22:27] LABS: Bilirubin,Urine Negative (Negative); Clarity,Urine Clear (Clear); Color,Urine Yellow (Yellw/Straw); Glucose,Urine (UA) Negative (Negative); Leukocyte Esterase,Urine Negative (Negative); Nitrite,Urine Negative (Negative); Specific Gravity,Urine 1.021 (1.002-1.035); Squamous Epithelial Cell,Urine 1 /hpf (0-5)
[2018-07-16 22:31] LABS: Bacteria,Urine Moderate /hpf
[2018-07-17] MEDS: Heparin - SQ 10,000 UNITS/ML Vial SQ SCH ×3 (00:07→19:07)
[2018-07-17] MEDS: Sucralfate 1 GM Tablet PO SCH ×4 (03:44→21:44)
[2018-07-17] MEDS: Chlorhexidine Gluconate 2% 1 Pack (2 Cloths) TOPICAL SCH (03:44)
[2018-07-17] MEDS: Methocarbamol 500 MG Tablet PO SCH ×3 (06:00→21:43)
[2018-07-17 07:04] LABS: Carbon Dioxide 30.7 meq/L (21.0-32.0); Magnesium 2.1 mg/dL (1.5-2.5); Potassium 4.1 meq/L (3.5-5.1)
[2018-07-17] MEDS: Insulin NovoLOG Aspart Correctional Sugar Inj SQ SCH ×4 (08:00→22:20)
[2018-07-17] MEDS: Potassium Bicarbonate 25 MEQ Effervescent Tablet PO SCH (09:00)
--- NOTE | 2018-07-17 09:29 | P.PN ---
Subjective Interval history: Follow-up agitation. Required IV Ativan yesterday. Patient was agitated yesterday because she was worried about her disabled daughter. Patient seen with her family today. Also spoke with emergency vehicle driver. Patient has some memory issues but she has been more confused than usual since yesterday. Finally her medication list has been updated Physical Exam Vital signs: Vital Signs 07/16/18 12:00 07/16/18 13:45 07/16/18 16:00 Temperature 97.6 F 98.0 F Pulse Rate 78 96 H Respiratory Rate 20 18 24 Blood Pressure 150/81 H 155/83 H Pulse Oximetry 96 93 L 07/16/18 20:00 07/16/18 21:30 07/17/18 00:00 Temperature 98.1 F 97.9 F Pulse Rate 97 H 90 81 Respiratory Rate 18 18 Blood Pressure 178/89 H Pulse Oximetry 92 L 07/17/18 04:00 Temperature 97.7 F Pulse Rate 84 Respiratory Rate 18 Blood Pressure 161/80 H Pulse Oximetry 92 L Intake & Output 07/16/18 07/17/18 07/17/18 18:59 06:59 18:59 Intake Total 480 / 480 Output Total 600 / 600 200 / 200 Balance -120 / -120 -200 / -200 Weight 105.3 kg Intake: Oral 480 / 480 Output: Urine 600 / 600 Urine Amount (Catheter) 200 / 200 Straight 200 / 200 Other: # Voids 2 # Incontinent Voids 1 Narrative: Gen.: No acute distress Cardiovascular: RRR No murmurs, rubs or gallops. Respiratory: Lungs clear to auscultation bilaterally. No wheezes or rhonchi. Abdomen: Soft, nontender, nondistended. No peritoneal signs. Musculoskeletal: SWollen tender warm left wrist and b/l knees Skin: No obvious rashes or erythema. Neuro: Cranial nerves II through XII grossly intact. Residual right-sided weakness that is baseline. Oriented to person only. Moves all 4 extremities spontaneously. - Urinary Catheter Management Straight Cath placed during this visit: yes, but has since been removed by the nurse Reason for continuing: Decision to DC catheter Insertion date: 07/16/18 Insertion time: 22:12 Removal date: 07/16/18 Removal time: 22:15 Results - Labs CBC & Chem 7: 07/15/18 04:00 07/17/18 05:20 Laboratory Results - last 24 hr 07/16/18 07/16/18 07/16/18 12:51 16:50 21:40 Sodium Potassium Chloride Carbon Dioxide Anion Gap BUN Creatinine Estimated GFR POC Glucose 151 H 112 H 159 H Random Glucose Calcium Magnesium Vitamin B12 Urine Color Urine Clarity Urine pH Ur Specific Commodore Urine Protein Urine Glucose (UA) Urine Ketones Urine Occult Blood Urine Nitrate Urine Bilirubin Urine Urobilinogen Ur Leukocyte Esterase Urine RBC Urine WBC Ur Squamous Epith Cells Urine Bacteria Ur Microscopic Review 07/16/18 07/17/18 22:12 05:20 Sodium 141 Potassium 4.1 Chloride 103 Carbon Dioxide 30.7 Anion Gap 7 BUN 17 Creatinine 0.90 Estimated GFR 75 L POC Glucose Random Glucose 129 H Calcium 9.0 Magnesium 2.1 Vitamin B12 324 Urine Color Yellow Urine Clarity Clear Urine pH 6.0 Ur Specific Commodore 1.021 Urine Protein 100 H Urine Glucose (UA) Negative Urine Ketones Trace H Urine Occult Blood Negative Urine Nitrate Negative Urine Bilirubin Negative Urine Urobilinogen 2.0 H Ur Leukocyte Esterase Negative Urine RBC Less than 1 Urine WBC 1 Ur Squamous Epith Cells 1 Urine Bacteria Moderate H Ur Microscopic Review Not Reportable - Procedures none Assessment and Plan - Plan 1. Altered mental status/Hypertensive urgency history of CVA. Initially improved now disoriented with episodes of agitation history of memory loss. This could be dementia. Head CT negative for acute process May be hypertensive encephalopathy Status post hydralazine and labetalol in the ED Monitor blood pressure closely If patient remains hypertensive will start Cardene drip. Will order as needed clonidine, IV Vasotec urine drug screen neg MRI neg Follow-up EKG with PVC Neurology consulted, appreciate assistance Patient takes BP medications and antiplatelets nurse to update med list, continue Lopressor for now. Increase beta-zhao strict BP control CM to assist contacting family Restart losartan TSH, B12 unremarkable pending RPR. Repeat UA unremarkable Avoid constipation currently on bowel regimen 2. Elevated troponin 2/2 above no CP EKG shows sinus rhythm with PVCs, pulse 91, personally reviewed. No ST segment elevation or depression. Allergic to aspirin 3. Diabetes mellitus Holding home antihyperglycemic's Sliding-scale insulin Monitor blood glucose 4. Hyperlipidemia/IBS Continue home Linzess and statin 5. Gout exacerbation. Uric acid 7. RTC NSAIDS x 2 days with GI proph and colchicine. Improving FEN Electrolytes: Status post repletion of potassium, monitor BMP Dc NS at 70 cc/hour Heparin Discharge Planning: Needs rehab case management consulted
[2018-07-17] MEDS: Metoprolol Tartrate 50 MG Tablet PO SCH ×3 (11:38→21:43)
[2018-07-17] MEDS: Senna/Docusate Sodium 8.6/50 MG Tablet PO SCH ×2 (11:40→21:44)
[2018-07-17] MEDS: Tolterodine Tartrate LA 4 MG Capsule PO SCH (11:45)
[2018-07-17] MEDS: Famotidine 20 MG Tablet PO SCH ×2 (11:50→21:43)
[2018-07-17] MEDS: Magnesium Oxide 400 MG Tablet PO SCH ×2 (11:54→21:50)
[2018-07-17 13:31] LABS: Anti-Nuclear Antibody Screen Pos (Neg)
[2018-07-18] MEDS: Heparin - SQ 10,000 UNITS/ML Vial SQ SCH ×3 (02:33→17:25)
[2018-07-18] MEDS: Sucralfate 1 GM Tablet PO SCH ×5 (02:34→22:16)
[2018-07-18] MEDS: Chlorhexidine Gluconate 2% 1 Pack (2 Cloths) TOPICAL SCH (04:03)
[2018-07-18] MEDS: Methocarbamol 500 MG Tablet PO SCH ×3 (06:28→22:17)
--- NOTE | 2018-07-18 08:05 | P.PN ---
Subjective Interval history: Follow-up encephalopathy. Required IV Ativan overnight currently sedated. Still no bowel movement, will give mag citrate x1 discussed with RN Physical Exam Vital signs: Vital Signs 07/17/18 12:00 07/17/18 16:00 07/17/18 17:47 Temperature 97.8 F 97.2 F L Pulse Rate 112 H 92 H Respiratory Rate 24 18 Blood Pressure 153/114 H 171/88 H Pulse Oximetry 93 L 92 L 93 L 07/17/18 20:00 07/17/18 23:45 07/18/18 00:00 Temperature 98.2 F 97.6 F Pulse Rate 87 79 83 Respiratory Rate 17 18 Blood Pressure 158/104 H 120/80 Pulse Oximetry 91 L 90 L 07/18/18 04:00 07/18/18 05:34 07/18/18 06:32 Temperature 98.2 F Pulse Rate 87 75 79 Respiratory Rate 18 18 Blood Pressure 164/95 H 134/71 Pulse Oximetry 92 L 92 L Intake & Output 07/17/18 07/18/18 07/18/18 18:59 06:59 18:59 Intake Total 480 / 480 Output Total 200 / 200 Balance 280 / 280 Weight 105.9 kg Intake: Oral 480 / 480 Output: Urine 200 / 200 Other: # Incontinent Voids 2 Date of Last Bowel Movement 07/14/18 Narrative: Gen.: No acute distress Cardiovascular: RRR No murmurs, rubs or gallops. Respiratory: Lungs clear to auscultation bilaterally. No wheezes or rhonchi. Abdomen: Soft, nontender, nondistended. No peritoneal signs. Musculoskeletal: Swollen tender warm left wrist and b/l knees Skin: No obvious rashes or erythema. Neuro: Cranial nerves II through XII grossly intact. Residual right-sided weakness that is baseline. Sedated. Moves all 4 extremities spontaneously. - Urinary Catheter Management Straight Cath placed during this visit: yes, but has since been removed by the nurse Reason for continuing: Decision to DC catheter Insertion date: 07/16/18 Insertion time: 22:12 Removal date: 07/16/18 Removal time: 22:15 Results - Labs CBC & Chem 7: 07/15/18 04:00 07/17/18 05:20 Laboratory Results - last 24 hr 07/15/18 07/17/18 07/17/18 22:32 05:20 11:48 POC Glucose 127 H RORY Screen Pos H RPR Nonreactive 07/17/18 21:49 POC Glucose 164 H RORY Screen RPR - Imaging ITS Impressions Chest X-Ray 07/13/18 19:30 CONCLUSION: Cardiomegaly. Minimal basilar atelectasis. No effusion or pneumothorax. Head CT 07/13/18 19:30 CONCLUSION: 1. Stable appearance with no evidence of hemorrhage or mass effect. . Head MRI 07/14/18 00:00 CONCLUSION: No definite acute intracranial findings. - Procedures none Assessment and Plan - Plan 1. Altered mental status/Hypertensive urgency history of CVA. Initially improved now disoriented with episodes of agitation history of memory loss. This could be dementia. Head CT negative for acute process May be hypertensive encephalopathy Status post hydralazine and labetalol in the ED Monitor blood pressure closely If patient remains hypertensive will start Cardene drip. Will order as needed clonidine, IV Vasotec urine drug screen neg MRI neg Follow-up EKG with PVC Neurology consulted, appreciate assistance. Will reconsult Improving BP control on Lopressor and losartan TSH, B12 and RPR unremarkable pending RORY. Repeat UA unremarkable Avoid constipation currently on bowel regimen. Mag citrate x1 Follow-up EEG Check phosphorus level Will decrease Ativan dose 2. Elevated troponin 2/2 above no CP EKG shows sinus rhythm with PVCs, pulse 91, personally reviewed. No ST segment elevation or depression. Allergic to aspirin 3. Diabetes mellitus Holding home antihyperglycemic's Sliding-scale insulin Monitor blood glucose 4. Hyperlipidemia/IBS Continue home Linzess and statin 5. Gout exacerbation. Uric acid 7. RTC NSAIDS x 2 days with GI proph and colchicine. Improving FEN Electrolytes: Status post repletion of potassium, monitor BMP Dc NS at 70 cc/hour Heparin Discharge Planning: Needs rehab case management consulted
[2018-07-18] MEDS ORDERED: Magnesium Citrate Liq 300 ML Bottle PO ONE (08:30)
[2018-07-18] MEDS: Famotidine 20 MG Tablet PO SCH ×2 (10:47→22:18)
[2018-07-18] MEDS: Tolterodine Tartrate LA 4 MG Capsule PO SCH (10:47)
[2018-07-18] MEDS: Metoprolol Tartrate 50 MG Tablet PO SCH ×2 (10:47→22:15)
[2018-07-18] MEDS: Senna/Docusate Sodium 8.6/50 MG Tablet PO SCH ×2 (10:48→22:05)
[2018-07-18] MEDS: Insulin NovoLOG Aspart Correctional Sugar Inj SQ SCH ×4 (11:05→22:39)
[2018-07-18] MEDS: Magnesium Oxide 400 MG Tablet PO SCH ×2 (11:06→22:17)
[2018-07-18] MEDS: Potassium Bicarbonate 25 MEQ Effervescent Tablet PO SCH (11:06)
--- NOTE | 2018-07-18 13:35 | MG ---
cc: Alejandro Casiano MD, PhD TEST NUMBER: [id number] TECHNIQUE: A 17-channel EEG. DESCRIPTION: The background rhythm reveals generalized slowing in the delta frequency at 3-4 Hz. There are sleep spindles present. No lateralizing features are identified. There are no epileptiform features seen. Hyperventilation is not done. Photic results in a modest driving response. Later in the tracing, there is alpha activity, but there is intermixed theta activity as well. INTERPRETATION: The majority of the tracing appears to be very slow, which I suspect is due to sleep activity because later in the tracing, there is a normal alpha rhythm. There is probably some degree of encephalopathy because of the generalized slowing in the theta range, however, but this is mild to moderate. No epileptiform features are identified. Alejandro Casiano MD, PhD KIA/jerel , 01:23 PM , 01:29 PM
[2018-07-19] MEDS: Heparin - SQ 10,000 UNITS/ML Vial SQ SCH ×3 (02:06→16:32)
[2018-07-19] MEDS: Sucralfate 1 GM Tablet PO SCH ×4 (02:06→21:52)
[2018-07-19] MEDS: Chlorhexidine Gluconate 2% 1 Pack (2 Cloths) TOPICAL SCH (03:02)
[2018-07-19] MEDS: Methocarbamol 500 MG Tablet PO SCH ×3 (05:05→21:52)
[2018-07-19] MEDS: Potassium Bicarbonate 25 MEQ Effervescent Tablet PO SCH (09:13)
[2018-07-19] MEDS: Famotidine 20 MG Tablet PO SCH ×2 (09:20→21:52)
[2018-07-19] MEDS: Metoprolol Tartrate 50 MG Tablet PO SCH ×2 (09:21→21:52)
[2018-07-19] MEDS: Magnesium Oxide 400 MG Tablet PO SCH ×2 (09:21→21:53)
[2018-07-19] MEDS: Tolterodine Tartrate LA 4 MG Capsule PO SCH (09:21)
[2018-07-19] MEDS: Senna/Docusate Sodium 8.6/50 MG Tablet PO SCH ×2 (09:22→21:54)
[2018-07-19] MEDS: Insulin NovoLOG Aspart Correctional Sugar Inj SQ SCH ×4 (09:23→21:54)
--- NOTE | 2018-07-19 10:34 | P.PNIM ---
Subjective Interval history: f/u; encephalopathy in no acute distress. awake but still confused and per the RN she pulled out her IV access out earlier today. Physical Exam Vital signs: Vital Signs 07/18/18 12:00 07/18/18 16:00 07/18/18 20:00 Temperature 97.9 F 98.2 F 97.8 F Pulse Rate 68 89 73 Respiratory Rate 18 19 18 Blood Pressure 163/79 H 182/93 H 167/103 H Pulse Oximetry 98 91 L 91 L 07/19/18 00:00 07/19/18 02:21 07/19/18 04:00 Temperature 98.0 F 97.8 F Pulse Rate 74 81 Respiratory Rate 18 18 18 Blood Pressure 168/85 H 177/105 H Pulse Oximetry 92 L 93 L 07/19/18 08:00 Temperature 97.8 F Pulse Rate 69 Respiratory Rate 17 Blood Pressure 175/100 H Pulse Oximetry 96 Intake & Output 07/18/18 07/19/18 07/19/18 18:59 06:59 18:59 Intake Total 600 / 600 Balance 600 / 600 Weight 105.9 kg Intake: Oral 600 / 600 Other: # Voids 3 Date of Last Bowel Movement 07/14/18 07/18/18 # Bowel Movements 2 - Constitutional no acute distress - Routine Respiratory Exam Present: CTA bilaterally - Routine Cardiovascular Exam Present: RRR - Routine Abdominal Exam Present: soft - Routine Extremities Exam Comments: no pedal edema. - Routine Neurological Exam awake but confused. - Urinary Catheter Management Straight Cath placed during this visit: yes, but has since been removed by the nurse Reason for continuing: Decision to DC catheter Insertion date: 07/16/18 Insertion time: 22:12 Removal date: 07/16/18 Removal time: 22:15 Results - Labs CBC & Chem 7: 07/15/18 04:00 07/17/18 05:20 Laboratory Results - last 24 hr 07/18/18 07/18/18 07/18/18 11:04 11:20 22:31 POC Glucose 147 H 176 H Phosphorus 3.4 07/19/18 07:58 POC Glucose 141 H Phosphorus - Procedures none Assessment and Plan - Plan 1. Altered mental status/Hypertensive urgency history of CVA. Initially improved now disoriented with episodes of agitation history of memory loss. This could be dementia. Head CT negative for acute process May be hypertensive encephalopathy Status post hydralazine and labetalol in the ED Monitor blood pressure closely; will increase Cozaar and continue to monitor. urine drug screen neg MRI neg Neurology reconsulted; awaiting reevaluation Improving BP control on Lopressor and losartan TSH, B12 and RPR unremarkable . Repeat UA unremarkable EEG with possible encephalopathy and no epileptiform activity. continue Ativan as needed. 2. Elevated troponin 2/2 above no CP EKG shows sinus rhythm with PVCs, pulse 91, personally reviewed. No ST segment elevation or depression. Allergic to aspirin 3. Diabetes mellitus Holding home antihyperglycemic's Sliding-scale insulin Monitor blood glucose 4. Hyperlipidemia/IBS Continue home Linzess and statin 5. Gout exacerbation. Uric acid 7. RTC NSAIDS x 2 days with GI proph and colchicine. Improving Discharge Planning: SNF- pending clinical course and neurology reevaluation.
[2018-07-19 13:46] LABS: Anti-Nuclear Antibody Pattern Centromere
[2018-07-20] MEDS: Sucralfate 1 GM Tablet PO SCH ×4 (02:45→20:40)
[2018-07-20] MEDS: Heparin - SQ 10,000 UNITS/ML Vial SQ SCH ×3 (02:54→17:17)
[2018-07-20] MEDS: Methocarbamol 500 MG Tablet PO SCH ×3 (06:12→20:32)
[2018-07-20] MEDS: Metoprolol Tartrate 50 MG Tablet PO SCH ×2 (08:01→20:30)
[2018-07-20] MEDS: Insulin NovoLOG Aspart Correctional Sugar Inj SQ SCH ×4 (08:12→20:44)
[2018-07-20] MEDS: Potassium Bicarbonate 25 MEQ Effervescent Tablet PO SCH (08:13)
[2018-07-20] MEDS: Senna/Docusate Sodium 8.6/50 MG Tablet PO SCH ×2 (08:13→20:39)
[2018-07-20] MEDS: Famotidine 20 MG Tablet PO SCH ×2 (08:13→20:33)
[2018-07-20] MEDS: Tolterodine Tartrate LA 4 MG Capsule PO SCH (08:13)
[2018-07-20] MEDS: Magnesium Oxide 400 MG Tablet PO SCH ×2 (08:13→20:38)
--- NOTE | 2018-07-20 09:59 | P.PNIM ---
Subjective Interval history: f/u; encephalopathy in no acute distress. awake but still confused and at times agitated. Physical Exam Vital signs: Vital Signs 07/19/18 16:00 07/19/18 19:58 07/20/18 00:00 Temperature 97.6 F 98.4 F 97.1 F L Pulse Rate 76 82 70 Respiratory Rate 18 16 16 Blood Pressure 181/82 H 156/85 H 159/93 H Pulse Oximetry 95 92 L 94 L 07/20/18 04:00 07/20/18 08:00 Temperature 98.0 F 98.7 F Pulse Rate 66 65 Respiratory Rate 17 20 Blood Pressure 166/91 H 183/103 H Pulse Oximetry 93 L 94 L Intake & Output 07/19/18 07/20/18 07/20/18 18:59 06:59 18:59 Intake Total 240 / 240 Output Total 500 / 500 Balance -260 / -260 Weight 105.9 kg Intake: Oral 240 / 240 Output: Urine 500 / 500 Other: # Voids 2 Date of Last Bowel Movement 07/19/18 # Incontinent Bowel Movements 1 - Constitutional no acute distress - Routine Respiratory Exam Present: CTA bilaterally - Routine Cardiovascular Exam Present: RRR - Routine Abdominal Exam Present: soft - Routine Extremities Exam Comments: no pedal edema. - Routine Neurological Exam awake but confused. - Urinary Catheter Management Straight Cath placed during this visit: yes, but has since been removed by the nurse Reason for continuing: Decision to DC catheter Insertion date: 07/16/18 Insertion time: 22:12 Removal date: 07/16/18 Removal time: 22:15 Results - Labs CBC & Chem 7: 07/15/18 04:00 07/17/18 05:20 Laboratory Results - last 24 hr 07/15/18 07/19/18 22:32 21:54 POC Glucose 135 H RORY Titer 1:640 H RORY Pattern Centromere H RORY Interpretation - Procedures none Assessment and Plan - Plan 1. Altered mental status/Hypertensive urgency history of CVA. Initially improved now disoriented with episodes of agitation history of memory loss. This could be dementia. Head CT negative for acute process May be hypertensive encephalopathy Status post hydralazine and labetalol in the ED Monitor blood pressure closely; will increase Cozaar and continue to monitor. urine drug screen neg MRI neg Neurology reconsulted; awaiting reevaluation TSH, B12 and RPR unremarkable . Repeat UA unremarkable EEG with possible encephalopathy and no epileptiform activity. continue Ativan as needed. 2. Elevated troponin 2/2 above no CP EKG shows sinus rhythm with PVCs, pulse 91, personally reviewed. No ST segment elevation or depression. Allergic to aspirin 3. Diabetes mellitus Holding home antihyperglycemic's Sliding-scale insulin Monitor blood glucose 4. Hyperlipidemia/IBS Continue home Linzess and statin 5. hypertension; not optimally controlled- partly due to anxiety Cozaar was increased to 100 mg daily/ continue Metoprolol- continue to monitor and adjust the regimen as needed. 6. Gout exacerbation. Uric acid 7. RTC NSAIDS x 2 days with GI proph and colchicine. Improving Discharge Planning: SNF- pending clinical course and neurology reevaluation.
--- NOTE | 2018-07-20 12:12 | P.PNNEU ---
Subjective Subjective Comments: confused in bed flat unable to tell me what's wrong. Active Medications: Active Medications Acetaminophen (Tylenol) 650 mg PO Q4H PRN PRN Reason: Temp > 100.4 Last Admin: 07/14/18 13:48 Dose: 650 mg Al Hydroxide/Mg Hydroxide (Milk Of Magnesia Liq) 30 ml PO Q12H PRN PRN Reason: Mild Constipation Last Admin: 07/18/18 22:18 Dose: 30 ml Atorvastatin Calcium (Lipitor) 10 mg PO DAILY [facility] Last Admin: 07/20/18 08:13 Dose: Not Given Bisacodyl (Dulcolax Supp) 10 mg RECTAL DAILY PRN PRN Reason: SEVERE CONSITIPATION Clonidine HCl (Catapres) 0.1 mg PO Q6H PRN PRN Reason: SEE LABEL COMMENTS Last Admin: 07/19/18 06:19 Dose: 0.1 mg Colchicine (Colcrys) 0.6 mg PO BID [facility] Last Admin: 07/20/18 08:13 Dose: Not Given Dextrose (D50w Vial) 50 ml IV.PUSH UNSCH PRN PRN Reason: PER HYPOGLYCEMIA PROTOCOL Enalaprilat (Vasotec Inj) 1.25 mg IV.PUSH Q6H PRN PRN Reason: SEE LABEL COMMENTS Famotidine (Pepcid) 20 mg PO BID [facility] Stop: 07/22/18 20:59 Last Admin: 07/20/18 08:13 Dose: Not Given Glucagon (Glucagon Inj) 1 mg OTHER PRN PRN PRN Reason: for Hypoglycemia Protocol Heparin Sodium (Porcine) (Heparin Inj) 5,000 units SQ Q8H [facility] Last Admin: 07/20/18 08:01 Dose: 5,000 units Ibuprofen (Motrin) 400 mg PO Q6HR PRN PRN Reason: PAIN SCALE 6 TO 10 Last Admin: 07/15/18 07:42 Dose: 400 mg Insulin Aspart (Novolog Insulin Correctional Sugar Inj) 0 unit SQ [facility]; Protocol Last Admin: 07/20/18 08:12 Dose: 1 unit Lactulose (Lactulose Liq) 30 ml PO DAILY [facility] Last Admin: 07/20/18 08:13 Dose: Not Given Lorazepam (Ativan Inj) 1 mg IM Q6H PRN PRN Reason: agitation Last Admin: 07/20/18 07:52 Dose: 1 mg Lorazepam (Ativan Inj) 0.5 mg IV.PUSH Q6H PRN PRN Reason: AGITATION Losartan Potassium (Cozaar) 100 mg PO DAILY [facility] Last Admin: 07/20/18 08:01 Dose: 100 mg Magnesium Oxide (Mag-Ox) 400 mg PO BID [facility] Last Admin: 07/20/18 08:13 Dose: Not Given Methocarbamol (Robaxin) 500 mg PO Q8HR [facility] Last Admin: 07/20/18 06:12 Dose: 500 mg Metoprolol Tartrate (Lopressor) 75 mg PO BID [facility] Last Admin: 07/20/18 08:01 Dose: 75 mg Naloxone HCl (Narcan Inj) 0.4 mg IV.PUSH UNSCH PRN PRN Reason: SEE LABEL COMMENTS Ondansetron HCl (Zofran Inj) 4 mg IV.PUSH Q6H PRN PRN Reason: NAUSEA OR VOMITING Patient Own Medication: Linzess 145mg Capsule 0 each PO DAILY [facility] Potassium Bicarbonate (Effer-K) 50 meq PO DAILY [facility] Last Admin: 07/20/18 08:13 Dose: Not Given Senna/Docusate Sodium (Addis-Colace) 1 tab PO BID [facility] Last Admin: 07/20/18 08:13 Dose: Not Given Sennosides (Senokot) 17.2 mg PO Q12H PRN PRN Reason: Moderate Constipation Sodium Chloride (Ns Flush) 2 ml IV.FLUSH BID [facility] Last Admin: 07/20/18 08:02 Dose: Not Given Sodium Chloride (Ns Flush) 2 ml IV.FLUSH PRN PRN PRN Reason: FLUSH AFTER USING IV ACCESS Last Admin: 07/16/18 16:53 Dose: 2 ml Sucralfate (Carafate) 1 gm PO Q6H [facility] Last Admin: 07/20/18 08:14 Dose: Not Given Tolterodine Tartrate (Detrol La) 4 mg PO DAILY [facility] Last Admin: 07/20/18 08:13 Dose: Not Given Allergies/Adverse Reactions: Allergies Allergy/AdvReac Type Severity Reaction Status Date / Time aspirin Allergy Intermediate GI BLEED Unverified 07/18/17 12:28 *MDRO Multi-Drug Resistant Allergy Unknown Uncoded 07/18/17 12:28 Organism Review of Systems unable to assess due to pts confusion Physical Exam Vital signs: Vital Signs 07/19/18 16:00 07/19/18 19:58 07/20/18 00:00 Temperature 97.6 F 98.4 F 97.1 F L Pulse Rate 76 82 70 Respiratory Rate 18 16 16 Blood Pressure 181/82 H 156/85 H 159/93 H Pulse Oximetry 95 92 L 94 L 07/20/18 04:00 07/20/18 08:00 Temperature 98.0 F 98.7 F Pulse Rate 66 65 Respiratory Rate 17 20 Blood Pressure 166/91 H 183/103 H Pulse Oximetry 93 L 94 L Intake & Output 07/19/18 07/20/18 07/20/18 18:59 06:59 18:59 Intake Total 240 / 240 Output Total 500 / 500 Balance -260 / -260 Weight 105.9 kg Intake: Oral 240 / 240 Output: Urine 500 / 500 Other: # Voids 2 Date of Last Bowel Movement 07/19/18 # Incontinent Bowel Movements 1 - Constitutional no acute distress - Routine HEENT Exam Head: Present: normocephalic, atraumatic Eye: Present: EOMI - Routine Neck Exam Present: supple, full ROM Comments: no meningismus - Routine Cardiovascular Exam Present: RRR, S1, S2 - Routine Abdominal Exam Present: soft - Routine Neurological Exam Present: altered mental status, normal tone seems to have some right sided weakness-hx cva does not follow commands w/d to pain mumbles unable to understand and does not make sense. - Urinary Catheter Management Straight Cath placed during this visit: yes, but has since been removed by the nurse Reason for continuing: Decision to DC catheter Insertion date: 07/16/18 Insertion time: 22:12 Removal date: 07/16/18 Removal time: 22:15 Objective Laboratory Results - last 24 hr 07/15/18 07/19/18 22:32 21:54 POC Glucose 135 H KAREN Titer 1:640 H KAREN Pattern Centromere H KAREN Interpretation Review/Management - Review/Management Plan: will repeat mri brain,eeg. labs for reversible causes of dementia completed-b12,tsh t4,rpr ammonia ok karen+1:160 u/a neg elevated esr and crp?hx gout. oob to chair if possible no sedating meds. no signs of infection. ?what is pt's baseline-some dementia??if so certainly can worsen in hospital and have delirium.
--- NOTE | 2018-07-20 17:05 | MR ---
EXAM DATE: 07/20/2018 5:00 PM EST AGE/SEX: 72 years / Female INDICATIONS: Altered mental status. CLINICAL DATA: This is the patient's initial encounter. Patient reports that signs and symptoms have been present for 1 day and indicates a pain score of 0/10. MEDICAL/SURGICAL HISTORY: Hypertension. Diabetes mellitus type II. . Right shoulder and bilate ral knee. COMPARISON: [facility] [place], 07/14/2018. . TECHNIQUE: Multiplanar, multisequence examination of the brain was performed without contrast. FINDINGS: Cerebrum: There is a curvilinear area of hemosiderin deposit presumably old infarct involving the le ft insular cortex and a small lesion in the thalamus. No acute stroke is identified on the diffusion weighted sequences. There is mild chronic ischemic demyelination changes present. There is no mass or mass effect. There is mild enlargement of the left lateral ventricular system. Posterior Fossa: The cerebellum and brainstem are intact. The 4th ventricle is midline. The cerebel lopontine angle is unremarkable. The cerebellar tonsils are normal in position. Diffusion Imaging: No focal areas of restricted diffusion are seen. No evidence of acute infarction . Extracranial: The visualized portions of the orbits and paranasal sinuses are unremarkable. CONCLUSION: 1. Stroke unchanged since 07/14/2018. No evidence of an acute stroke on today's exam. No acute mass or mass effect. Electronically signed by: Vincent Barnhart MD 07/20/2018 5:03 PM EST
--- NOTE | 2018-07-20 17:10 | MR ---
EXAM DATE: 07/20/2018 5:04 PM EST AGE/SEX: 72 years / Female INDICATIONS: CVA. CLINICAL DATA: This is the patient's initial encounter. Patient reports that signs and symptoms have been present for 1 day and indicates a pain score of 0/10. MEDICAL/SURGICAL HISTORY: Hypertension. Diabetes mellitus type II. . Bilateral knee and right shoulder. COMPARISON: No prior exams available for comparison. TECHNIQUE: 3D [id number] MRA was performed. Source images, multiplanar STS MIP, and 3D volum e MIP reconstructions were reviewed. FINDINGS: There is excellent visualization of the major intracranial arteries out to the second-order branch ve ssels. There is no evidence for aneurysm, vessel truncation or stenosis, and no evidence for vascula r malformation. The basilar artery is diffusely narrowed. There are patent bilateral posterior commun icating arteries without evidence of aneurysm. The communicating arteries supply the majority of the flow to the posterior cerebral circulation CONCLUSION: 1. Diffuse narrowing of the basilar artery. No evidence of aneurysm. Electronically signed by: Vincent Barnhart MD 07/20/2018 5:09 PM EST
--- NOTE | 2018-07-20 20:21 | MG ---
cc: Alejandro Casiano MD, PhD TEST NUMBER: [id number] TECHNIQUE: A 17-channel EEG. DESCRIPTION: The background rhythm reveals initially slowing in the delta frequency with sleep spindles present. No epileptic features. No lateralizing features are identified. There is later theta slowing at about 5-6 Hz again with no lateralizing features. Photic results in a poor driving. INTERPRETATION: The study revealed generalized slowing which is probably related to sleep activity. Alejandro Casiano MD, PhD KIA/jerel , 07:52 PM , 07:55 PM
[2018-07-21] MEDS: Methocarbamol 500 MG Tablet PO SCH ×4 (01:33→21:31)
[2018-07-21] MEDS: Sucralfate 1 GM Tablet PO SCH ×4 (02:52→21:31)
[2018-07-21] MEDS: Heparin - SQ 10,000 UNITS/ML Vial SQ SCH ×3 (02:52→17:36)
[2018-07-21] MEDS: Insulin NovoLOG Aspart Correctional Sugar Inj SQ SCH ×4 (08:29→21:35)
[2018-07-21] MEDS: Senna/Docusate Sodium 8.6/50 MG Tablet PO SCH ×2 (08:30→21:31)
[2018-07-21] MEDS: Famotidine 20 MG Tablet PO SCH ×2 (08:30→21:31)
[2018-07-21] MEDS: Metoprolol Tartrate 50 MG Tablet PO SCH ×2 (08:30→21:32)
[2018-07-21] MEDS: Tolterodine Tartrate LA 4 MG Capsule PO SCH (08:31)
[2018-07-21] MEDS: Magnesium Oxide 400 MG Tablet PO SCH ×2 (08:33→21:32)
[2018-07-21] MEDS: Potassium Bicarbonate 25 MEQ Effervescent Tablet PO SCH (08:34)
--- NOTE | 2018-07-21 09:57 | P.PNIM ---
Subjective Interval history: in no acute distress. looks comfortable. still confused. Physical Exam Vital signs: Vital Signs 07/20/18 12:00 07/20/18 16:00 07/20/18 20:00 Temperature 98.2 F 98.1 F 97.9 F Pulse Rate 73 71 91 H Respiratory Rate 19 18 18 Blood Pressure 147/95 H 173/84 H 187/112 H Pulse Oximetry 94 L 94 L 94 L 07/21/18 00:00 Temperature 97.8 F Pulse Rate 73 Respiratory Rate 18 Blood Pressure 160/74 H Pulse Oximetry 98 Intake & Output 07/20/18 07/21/18 07/21/18 18:59 06:59 18:59 Intake Total 200 / 200 Balance 200 / 200 Weight 98.4 kg Intake: Oral 200 / 200 Other: # Voids 4 2 Date of Last Bowel Movement 07/20/18 # Bowel Movements 3 - Constitutional no acute distress - Routine Respiratory Exam Present: CTA bilaterally - Routine Cardiovascular Exam Present: RRR - Routine Abdominal Exam Present: soft - Routine Extremities Exam Comments: no pedal edema. - Routine Neurological Exam awake but confused. - Urinary Catheter Management Straight Cath placed during this visit: yes, but has since been removed by the nurse Reason for continuing: Decision to DC catheter Insertion date: 07/16/18 Insertion time: 22:12 Removal date: 07/16/18 Removal time: 22:15 Results - Labs CBC & Chem 7: 07/15/18 04:00 07/17/18 05:20 Laboratory Results - last 24 hr 07/20/18 07/20/18 07/20/18 07:58 12:08 17:15 POC Glucose 179 H 121 H 135 H 07/20/18 07/21/18 20:43 07:52 POC Glucose 134 H 141 H - Imaging Impressions Head MRI 07/20/18 00:00 CONCLUSION: 1. Stroke unchanged since 07/14/2018. No evidence of an acute stroke on today' s exam. No acute mass or mass effect. Head MRA 07/20/18 00:00 CONCLUSION: 1. Diffuse narrowing of the basilar artery. No evidence of aneurysm. - Procedures none Assessment and Plan - Plan 1. Altered mental status/Hypertensive urgency history of CVA. Initially improved now disoriented with episodes of agitation history of memory loss. This could be dementia. Head CT negative for acute process May be hypertensive encephalopathy Status post hydralazine and labetalol in the ED Monitor blood pressure closely; will increase Cozaar and continue to monitor. urine drug screen neg MRI neg Neurology reconsulted; MRI brain repeated with no acute abnormality. TSH, B12 and RPR unremarkable . Repeat UA unremarkable EEG with possible encephalopathy and no epileptiform activity. positive RORY with elevated ESR- will add RORY positive panel and trial of Prednisone per my d/w . 2. Elevated troponin 2/2 above no CP EKG shows sinus rhythm with PVCs, pulse 91, personally reviewed. No ST segment elevation or depression. Allergic to aspirin 3. Diabetes mellitus Holding home antihyperglycemic's Sliding-scale insulin Monitor blood glucose 4. Hyperlipidemia/IBS Continue home Linzess and statin 5. hypertension; not optimally controlled- partly due to anxiety Cozaar was increased to 100 mg daily/ continue Metoprolol- continue to monitor and adjust the regimen as needed. 6. Gout exacerbation. Uric acid 7. Improving Discharge Planning: SNF- pending clinical course and neurology clearance.
[2018-07-21] MEDS: predniSONE 20 MG Tablet PO SCH (10:34)
[2018-07-22] MEDS: Heparin - SQ 10,000 UNITS/ML Vial SQ SCH ×3 (01:10→16:33)
[2018-07-22] MEDS: Sucralfate 1 GM Tablet PO SCH ×4 (01:50→22:27)
[2018-07-22] MEDS: Methocarbamol 500 MG Tablet PO SCH ×3 (05:00→22:28)
[2018-07-22] MEDS: Potassium Bicarbonate 25 MEQ Effervescent Tablet PO SCH (09:05)
[2018-07-22] MEDS: Tolterodine Tartrate LA 4 MG Capsule PO SCH (09:06)
[2018-07-22] MEDS: Metoprolol Tartrate 50 MG Tablet PO SCH ×2 (09:06→22:27)
[2018-07-22] MEDS: Senna/Docusate Sodium 8.6/50 MG Tablet PO SCH ×2 (09:06→22:27)
[2018-07-22] MEDS: predniSONE 20 MG Tablet PO SCH (09:07)
[2018-07-22] MEDS: Famotidine 20 MG Tablet PO SCH (09:07)
[2018-07-22] MEDS: Magnesium Oxide 400 MG Tablet PO SCH ×2 (09:08→22:27)
[2018-07-22] MEDS: Insulin NovoLOG Aspart Correctional Sugar Inj SQ SCH ×4 (09:08→22:29)
--- NOTE | 2018-07-22 10:42 | P.PNIM ---
Subjective Interval history: f/u ; encephalopathy in no acute distress. still with some confusion. no fever. BP trend noted. Physical Exam Vital signs: Vital Signs 07/21/18 12:00 07/21/18 16:00 07/21/18 20:00 Temperature 98.2 F 97.4 F L 98.0 F Pulse Rate 72 83 79 Respiratory Rate 19 17 18 Blood Pressure 164/93 H 164/107 H 196/100 H Pulse Oximetry 91 L 95 94 L 07/21/18 21:57 07/22/18 00:00 07/22/18 04:00 Temperature 98.9 F 98.9 F Pulse Rate 75 68 73 Respiratory Rate 18 18 Blood Pressure 173/85 H 168/91 H Pulse Oximetry 99 93 L 07/22/18 08:00 Temperature 97.6 F Pulse Rate 68 Respiratory Rate 17 Blood Pressure 149/90 H Pulse Oximetry 93 L Intake & Output 07/21/18 07/22/18 07/22/18 18:59 06:59 18:59 Intake Total 900 / 900 Balance 900 / 900 Weight 97.6 kg Intake: Oral 900 / 900 Other: # Voids 5 2 # Bowel Movements 1 1 - Constitutional no acute distress - Routine Respiratory Exam Present: CTA bilaterally - Routine Cardiovascular Exam Present: RRR - Routine Abdominal Exam Present: soft - Routine Extremities Exam Comments: no pedal edema. - Routine Neurological Exam Present: alert (but confused.) - Urinary Catheter Management Straight Cath placed during this visit: yes, but has since been removed by the nurse Reason for continuing: Decision to DC catheter Insertion date: 07/16/18 Insertion time: 22:12 Removal date: 07/16/18 Removal time: 22:15 Results - Labs CBC & Chem 7: 07/15/18 04:00 07/17/18 05:20 Laboratory Results - last 24 hr 07/21/18 07/21/18 07/21/18 11:55 17:39 17:40 POC Glucose 120 H 438 H 170 H 07/21/18 07/22/18 21:39 07:42 POC Glucose 163 H 147 H - Procedures none Assessment and Plan - Plan 1. Altered mental status/Hypertensive urgency history of CVA. Initially improved now disoriented with episodes of agitation history of memory loss. This could be dementia. Head CT negative for acute process May be hypertensive encephalopathy Status post hydralazine and labetalol in the ED Monitor blood pressure closely; will increase Cozaar and continue to monitor. urine drug screen neg MRI neg Neurology reconsulted; MRI brain repeated with no acute abnormality. TSH, B12 and RPR unremarkable . Repeat UA unremarkable EEG with possible encephalopathy and no epileptiform activity. positive RORY with elevated ESR- RORY positive panel pending- on trial of Prednisone per my d/w . 2. Elevated troponin 2/2 above no CP EKG shows sinus rhythm with PVCs, pulse 91, personally reviewed. No ST segment elevation or depression. Allergic to aspirin 3. Diabetes mellitus Holding home antihyperglycemic's Sliding-scale insulin Monitor blood glucose 4. Hyperlipidemia/IBS Continue home Linzess and statin 5. hypertension; not optimally controlled- partly due to anxiety Cozaar was increased to 100 mg daily/ continue Metoprolol- will add Norvasc - continue to monitor and adjust the regimen as needed. 6. Gout exacerbation. Uric acid 7. Improving Discharge Planning: SNF- possible early this week- pending clinical course and neurology clearance.
[2018-07-22] MEDS: amLODIPine 5 MG Tablet PO SCH (12:32)
[2018-07-23] MEDS: Heparin - SQ 10,000 UNITS/ML Vial SQ SCH ×3 (02:24→17:19)
[2018-07-23] MEDS: Sucralfate 1 GM Tablet PO SCH ×4 (02:25→22:46)
[2018-07-23] MEDS: Methocarbamol 500 MG Tablet PO SCH ×3 (05:05→22:48)
[2018-07-23 06:12] LABS: Baso # (Auto) 0.1 th/mm3 (0.0-0.2); Eos % (Auto) 0.1 % (0.0-4.0); Hematocrit 44.9 % (35.0-46.0); Hemoglobin 14.2 gm/dL (11.6-15.3); Lymph # (Auto) 1.5 th/mm3 (1.0-4.8); Lymph % (Auto) 13.8 % (9.0-44.0); Mean Corpuscular HGB Conc 31.7 % (32.0-36.0); Mean Corpuscular Hemoglobin 28.2 pg (27.0-34.0); Mean Corpuscular Volume 88.9 fL (80.0-100.0); Mono # (Auto) 0.6 th/mm3 (0.0-0.9); Mono % (Auto) 5.8 % (0.0-8.0); Neut # (Auto) 8.5 th/mm3 (1.8-7.7); Neut % (Auto) 79.3 % (16.0-70.0); Platelet Count 432 th/mm3 (150-450); Red Blood Count 5.04 mil/mm3 (4.00-5.30); Red Cell Distribution Width 16.3 % (11.6-17.2); White Blood Count 10.8 th/mm3 (4.0-11.0)
[2018-07-23 06:26] LABS: Carbon Dioxide 27.2 meq/L (21.0-32.0); Potassium 3.7 meq/L (3.5-5.1)
[2018-07-23] MEDS: Potassium Bicarbonate 25 MEQ Effervescent Tablet PO SCH (08:06)
[2018-07-23] MEDS: Magnesium Oxide 400 MG Tablet PO SCH ×2 (08:06→22:46)
[2018-07-23] MEDS: Metoprolol Tartrate 50 MG Tablet PO SCH ×2 (08:07→22:45)
[2018-07-23] MEDS: Senna/Docusate Sodium 8.6/50 MG Tablet PO SCH ×2 (08:07→22:47)
[2018-07-23] MEDS: predniSONE 20 MG Tablet PO SCH (08:07)
[2018-07-23] MEDS: amLODIPine 5 MG Tablet PO SCH (08:07)
[2018-07-23] MEDS: Tolterodine Tartrate LA 4 MG Capsule PO SCH (08:07)
[2018-07-23] MEDS: Insulin NovoLOG Aspart Correctional Sugar Inj SQ SCH ×4 (08:08→22:47)
--- NOTE | 2018-07-23 09:25 | P.PNIM ---
Subjective Interval history: f/u; encephalopathy in no acute distress. awake but confused. Physical Exam Vital signs: Vital Signs 07/22/18 12:00 07/22/18 16:00 07/22/18 20:00 Temperature 97.4 F L 98.0 F 98.4 F Pulse Rate 62 72 75 Respiratory Rate 17 17 18 Blood Pressure 144/73 H 178/80 H 162/98 H Pulse Oximetry 98 93 L 88 L 07/23/18 00:00 07/23/18 04:00 07/23/18 08:00 Temperature 98.2 F 97.5 F L 98.1 F Pulse Rate 75 75 75 Respiratory Rate 18 18 17 Blood Pressure 149/80 H 137/81 172/77 H Pulse Oximetry 94 L 98 93 L Intake & Output 07/22/18 07/23/18 07/23/18 18:59 06:59 18:59 Intake Total 720 / 720 120 / 120 Balance 720 / 720 120 / 120 Weight 97.5 kg Intake: Oral 720 / 720 120 / 120 Other: # Voids 3 # Incontinent Voids 3 # Bowel Movements 1 - Constitutional no acute distress - Routine Respiratory Exam Present: CTA bilaterally - Routine Cardiovascular Exam Present: RRR - Routine Abdominal Exam Present: soft - Routine Extremities Exam Comments: no pedal edema. - Routine Neurological Exam awake but confused. - Urinary Catheter Management Straight Cath placed during this visit: yes, but has since been removed by the nurse Reason for continuing: Decision to DC catheter Insertion date: 07/16/18 Insertion time: 22:12 Removal date: 07/16/18 Removal time: 22:15 Results - Labs CBC & Chem 7: 07/23/18 04:43 07/23/18 04:43 Laboratory Results - last 24 hr 07/21/18 07/22/18 07/22/18 11:40 11:58 16:32 WBC RBC Hgb Hct MCV MCH MCHC RDW Plt Count MPV Neut % (Auto) Lymph % (Auto) Catron % (Auto) Eos % (Auto) Baso % (Auto) Neut # (Auto) Lymph # (Auto) Catron # (Auto) Eos # (Auto) Baso # (Auto) WBC Differential Differential Comment Sodium Potassium Chloride Carbon Dioxide Anion Gap BUN Creatinine Estimated GFR POC Glucose 181 H 182 H Random Glucose Calcium Actin IgG Antibody <20 07/22/18 07/23/18 07/23/18 19:55 04:43 04:43 WBC 10.8 RBC 5.04 Hgb 14.2 Hct 44.9 MCV 88.9 MCH 28.2 MCHC 31.7 L RDW 16.3 Plt Count 432 D MPV 9.0 Neut % (Auto) 79.3 H Lymph % (Auto) 13.8 Catron % (Auto) 5.8 Eos % (Auto) 0.1 Baso % (Auto) 1.0 Neut # (Auto) 8.5 H Lymph # (Auto) 1.5 Catron # (Auto) 0.6 Eos # (Auto) 0.0 Baso # (Auto) 0.1 WBC Differential . Differential Comment Auto diff final Sodium 137 Potassium 3.7 Chloride 101 Carbon Dioxide 27.2 Anion Gap 9 BUN 26 H Creatinine 0.92 Estimated GFR 73 L POC Glucose 231 H Random Glucose 113 H Calcium 10.0 Actin IgG Antibody - Procedures none Assessment and Plan - Plan 1. Altered mental status/Hypertensive urgency history of CVA. Initially improved now disoriented with episodes of agitation history of memory loss. This could be dementia. Head CT negative for acute process May be hypertensive encephalopathy Status post hydralazine and labetalol in the ED Monitor blood pressure closely; will increase Cozaar and continue to monitor. urine drug screen neg MRI neg Neurology reconsulted; MRI brain repeated with no acute abnormality. TSH, B12 and RPR unremarkable . Repeat UA unremarkable EEG with possible encephalopathy and no epileptiform activity. positive RORY with elevated ESR- RORY positive panel pending- on trial of Prednisone per my d/w . 2. Elevated troponin 2/2 above no CP EKG shows sinus rhythm with PVCs, pulse 91, personally reviewed. No ST segment elevation or depression. Allergic to aspirin 3. Diabetes mellitus Holding home antihyperglycemic's Sliding-scale insulin Monitor blood glucose 4. Hyperlipidemia/IBS Continue home Linzess and statin 5. hypertension; not optimally controlled- partly due to anxiety Cozaar was increased to 100 mg daily/ continue Metoprolol- will increase Norvasc to 10 mg daily -continue to monitor and adjust the regimen as needed. 6. Gout exacerbation. Uric acid 7. Improving Discharge Planning: SNF- possible early this week- pending clinical course and neurology clearance.
[2018-07-23] MEDS ORDERED: amLODIPine 5 MG Tablet PO ONE (09:30)
[2018-07-23] MEDS ORDERED: Haloperidol Inj 5 MG/ML Ampul IM PRN (14:46)
[2018-07-24] MEDS: Heparin - SQ 10,000 UNITS/ML Vial SQ SCH ×3 (00:28→16:37)
[2018-07-24] MEDS: Sucralfate 1 GM Tablet PO SCH ×4 (02:41→20:35)
[2018-07-24] MEDS: Methocarbamol 500 MG Tablet PO SCH ×4 (05:33→22:32)
[2018-07-24] MEDS: Insulin NovoLOG Aspart Correctional Sugar Inj SQ SCH ×4 (09:23→20:44)
[2018-07-24] MEDS: Potassium Bicarbonate 25 MEQ Effervescent Tablet PO SCH (09:26)
[2018-07-24] MEDS: Senna/Docusate Sodium 8.6/50 MG Tablet PO SCH ×2 (09:26→20:36)
[2018-07-24] MEDS: Metoprolol Tartrate 50 MG Tablet PO SCH ×2 (09:28→20:35)
[2018-07-24] MEDS: predniSONE 20 MG Tablet PO SCH (09:30)
[2018-07-24] MEDS: Magnesium Oxide 400 MG Tablet PO SCH ×2 (09:30→20:34)
[2018-07-24] MEDS: amLODIPine 10 MG Tablet PO SCH (09:31)
[2018-07-24] MEDS: Tolterodine Tartrate LA 4 MG Capsule PO SCH (09:31)
--- NOTE | 2018-07-24 11:13 | P.PNIM ---
Subjective Interval history: in no acute distress. looks comfortable. no fever. Physical Exam Vital signs: Last Vital Signs Temp 97.2 F L 07/24/18 08:00 Pulse 69 07/24/18 08:00 Resp 19 07/24/18 08:00 BP 163/95 H 07/24/18 08:00 Pulse Ox 93 L 07/24/18 08:00 Intake & Output 07/22/18 07/23/18 07/24/18 07/25/18 06:59 06:59 06:59 06:59 Intake Total 900 / 900 840 / 840 490 / 490 Balance 900 / 900 840 / 840 490 / 490 Weight 97.6 kg 97.5 kg 96.8 kg Constitutional no acute distress Routine Respiratory Exam Present CTA bilaterally Routine Cardiovascular Exam Present RRR Routine Abdominal Exam Present soft Routine Extremities Exam Comments: no pedal edema. Routine Neurological Exam Present alert Urinary Catheter Management Straight: Cath placed during this visit: yes, but has since been removed by the nurse Insertion date: 07/16/18 Insertion time: 22:12 Removal date: 07/16/18 Removal time: 22:15 Results Labs CBC & Chem 7: 07/23/18 04:43 07/23/18 04:43 Procedures Procedures: none Assessment and Plan Plan 1. Altered mental status/Hypertensive urgency history of CVA. Initially improved now disoriented with episodes of agitation history of memory loss. This could be dementia. Head CT negative for acute process May be hypertensive encephalopathy Status post hydralazine and labetalol in the ED Monitor blood pressure closely; will increase Cozaar and continue to monitor. urine drug screen neg MRI neg Neurology reconsulted; MRI brain repeated with no acute abnormality. TSH, B12 and RPR unremarkable . Repeat UA unremarkable EEG with possible encephalopathy and no epileptiform activity. positive RORY with elevated ESR- RORY positive panel pending- f.u with rheumatology as outpatient. d/w today and cleared for discharge. 2. Elevated troponin 2/2 above no CP EKG shows sinus rhythm with PVCs, pulse 91, personally reviewed. No ST segment elevation or depression. Allergic to aspirin 3. Diabetes mellitus Holding home antihyperglycemic's Sliding-scale insulin Monitor blood glucose 4. Hyperlipidemia/IBS Continue home Linzess and statin 5. hypertension; partly due to anxiety Cozaar was increased to 100 mg daily/ continue Metoprolol- increased Norvasc to 10 mg daily -continue to monitor and adjust the regimen as needed. 6. Gout exacerbation. Uric acid 7. Improving Discharge Planning: SNF today. f/u; pcp, rheumatology and neurology. d/w the patient, and case managemenet. previously d/w the daughter. time spent 35 min. Progress Note: Quality VTE Deep Vein Thrombosis/Pulmonary Embolism Present on Admission: No
--- NOTE | 2018-07-24 11:16 | P.DS ---
DS: Providers Date of admission: 07/14/18 00:50 Primary care physician: Cipriano Carmichael Consults: 07/14/18 00:40 HUB Only Consult Order Routine Consulting Provider: Emanuel Castellanos 07/14/18 00:53 Consult to Neurology Routine Consulting Provider: Naila Williamson Reason for Consultation: AMS Notified:: Service Spoke with:: [place] Date Notified:: 07/14/18 Time Notified:: 01:25 Ordering Provider: ADILSON 07/14/18 15:09 HUB Only Consult Order Routine Consulting Provider: Emanuel Castellanos 07/16/18 16:36 HUB Only Consult Order Routine Consulting Provider: Roland Ahuja [facility] 07/18/18 13:52 Consult to Neurology Routine Consulting Provider: Jude Barker Reason for Consultation: still with encephalopathy Notified:: Office Spoke with:: Raina Date Notified:: 07/18/18 Time Notified:: 13:59 Ordering Provider: MANJULA 07/18/18 18:22 Consult to Neuropsychology Routine Consulting Provider: Victor Manuel Velazquez Preferred Mechanical Drafter:: Victor Manuel Velazquez, PhD Patient known to:: Acosta Sullivanmack Reason for Consultation: Continue mental status decline Notified:: Physician Spoke with:: Dr. Velazquez voicemail Date Notified:: 07/18/18 Time Notified:: 18:25 Ordering Provider: MANJULA Larsen History from admission: 72 old female with a past medical history significant for diabetes mellitus, hyperlipidemia and irritable bowel syndrome presents to the emergency department for evaluation of altered mental status. At the time of our interview, the patient cannot tell me where she is, she does not know the year and she does not know why she is in the hospital. Per ED documentation the patient has a history of previous CVA with right-sided deficits who is normally alert and active was brought to the emergency department for the evaluation of altered mental status. Apparently, her department was called twice for the patient today. On first visit they assisted the patient up from the floor where she had fallen. The second time EMS was called because she was not acting herself. The patient is confused and unable to provide any additional details. The patient denies CP/SOB, no abd pain/N/V/D. No new focal neurologic deficits. No fever/chills. HPI/history limited by AMS. DS: Summary 1. Altered mental status/Hypertensive urgency history of CVA. Initially improved now disoriented with episodes of agitation history of memory loss. This could be dementia. Head CT negative for acute process May be hypertensive encephalopathy Status post hydralazine and labetalol in the ED Monitor blood pressure closely; will increase Cozaar and continue to monitor. urine drug screen neg MRI neg Neurology reconsulted; MRI brain repeated with no acute abnormality. TSH, B12 and RPR unremarkable . Repeat UA unremarkable EEG with possible encephalopathy and no epileptiform activity. positive RORY with elevated ESR- RORY positive panel pending- f.u with rheumatology as outpatient. d/w today and cleared for discharge. 2. Elevated troponin 2/2 above no CP EKG shows sinus rhythm with PVCs, pulse 91, personally reviewed. No ST segment elevation or depression. Time Spent with Patient Total time spent providing and/or coordinating discharge services: Greater than 30 minutes Specific discharge activities: 35 minutes. Quality: VTE Deep Vein Thrombosis/Pulmonary Embolism Present on Admission: No Exam Narrative Exam Narrative: patient with no acute distress and looks comfortable. on physical exam, patient is alert but still confused. S1/S2 heard on cardiac exam with bilateral air entry. abdomen is soft with no pedal edema. Results Procedures completed during hospitalization: none Labs on day of discharge: Labs from last 24 hours 07/24/18 07/23/18 07/23/18 07:47 19:32 17:06 POC Glucose 122 H 168 H 194 H Stl C.difficile DNA Amp St C. diff Tox Epid 027 07/23/18 07/23/18 11:32 10:00 POC Glucose 163 H Stl C.difficile DNA Amp Negative St C. diff Tox Epid 027 Negative Impressions ITS Impressions Chest X-Ray 07/13/18 19:30 CONCLUSION: Cardiomegaly. Minimal basilar atelectasis. No effusion or pneumothorax. Head CT 07/13/18 19:30 CONCLUSION: 1. Stable appearance with no evidence of hemorrhage or mass effect. . Head MRI 07/20/18 00:00 CONCLUSION: 1. Stroke unchanged since 07/14/2018. No evidence of an acute stroke on today' s exam. No acute mass or mass effect. Head MRA 07/20/18 00:00 CONCLUSION: 1. Diffuse narrowing of the basilar artery. No evidence of aneurysm. Discharge Plan Discharge Disposition Patient Disposition: 03 Discharge to SNF Discharge Condition Condition: Fair Discharge Order Discharge Orders: Discharge Order (Routine); Ordered 07/24/18 Ordered By: Monae Garner Physicians Team ED Provider: Sean Lemon Primary Care Provider: Cipriano Carmichael Attending Provider: Monae Garner Other Providers: Naila Williamson ; Emanuel Castellanos ; Lupe Weeks ; Jude Barker ; Victor Manuel Velazquez Rxs /Orders / Referrals /Forms Prescriptions: New losartan 50 mg Tablet 100 mg PO DAILY 30 Days Qty: 60 RF: 0 methocarbamol 500 mg Tablet 500 mg PO Q8HR PRN (Reason: muscle spasm) 15 Days Qty: 45 RF: 0 amlodipine [Norvasc] 10 mg Tablet 10 mg PO DAILY 30 Days Qty: 30 RF: 0 metoprolol tartrate 50 mg Tablet 75 mg PO BID 30 Days Qty: 90 RF: 0 Continue atorvastatin 10 mg Tablet 10 mg PO DAILY RF: 0 sucralfate 1 gram Tablet 1 g PO Q6H RF: 0 metformin 850 mg Tablet 850 mg PO TID RF: 0 glipizide 5 mg Tablet 5 mg PO DAILY RF: 0 solifenacin [Vesicare] 10 mg Tablet 10 mg PO DAILY RF: 0 linaclotide [Linzess] 145 mcg Capsule 145 mcg PO DAILY RF: 0 nitroglycerin 0.4 mg Tablet, Sublingual See Label Instructions .ROUTE .COMPLEX RF: 0 ferrous sulfate 325 mg (65 mg iron) Tablet,Delayed Release (Dr/Ec) 325 mg PO BID RF: 0 cholecalciferol (vitamin D3) [Vitamin D3] 2,000 unit Capsule 2,000 unit PO DAILY RF: 0 metformin 850 mg Tablet 850 mg PO TID RF: 0 Discontinued losartan 50 mg Tablet 50 mg PO DAILY RF: 0 Referrals: Cipriano Carmichael MD [Primary Care Provider] - See Instructions Lupe Weeks [Agency] - See Instructions Status ED Status: Left Department Discharge Information Discharge Date/Time: 07/25/18 16:14
[2018-07-25] MEDS: Sucralfate 1 GM Tablet PO SCH ×3 (02:43→14:29)
[2018-07-25] MEDS: Heparin - SQ 10,000 UNITS/ML Vial SQ SCH ×2 (02:43→09:17)
[2018-07-25] MEDS: Methocarbamol 500 MG Tablet PO SCH ×2 (05:49→14:29)
[2018-07-25] MEDS: Insulin NovoLOG Aspart Correctional Sugar Inj SQ SCH ×2 (07:34→12:37)
[2018-07-25] MEDS: Potassium Bicarbonate 25 MEQ Effervescent Tablet PO SCH (09:17)
[2018-07-25] MEDS: Senna/Docusate Sodium 8.6/50 MG Tablet PO SCH (09:22)
[2018-07-25] MEDS: Metoprolol Tartrate 50 MG Tablet PO SCH (09:24)
[2018-07-25] MEDS: Tolterodine Tartrate LA 4 MG Capsule PO SCH (09:25)
[2018-07-25] MEDS: Magnesium Oxide 400 MG Tablet PO SCH (09:25)
[2018-07-25] MEDS: amLODIPine 10 MG Tablet PO SCH (09:25)
[2018-07-25] MEDS: predniSONE 20 MG Tablet PO SCH (09:25)
--- NOTE | 2018-07-25 10:29 | P.PNIM ---
Subjective Interval history: in no acute distress. looks comfortable. denies pain. working with PT. Physical Exam Vital signs: Last Vital Signs Temp 97.8 F 07/25/18 08:00 Pulse 70 07/25/18 08:00 Resp 19 07/25/18 08:00 BP 159/91 H 07/25/18 08:00 Pulse Ox 95 07/25/18 08:00 Intake & Output 07/23/18 07/24/18 07/25/18 07/26/18 06:59 06:59 06:59 06:59 Intake Total 840 / 840 490 / 490 1100 / 1100 Balance 840 / 840 490 / 490 1100 / 1100 Weight 97.5 kg 96.8 kg 96.8 kg Constitutional no acute distress Routine Respiratory Exam Present CTA bilaterally Routine Cardiovascular Exam Present RRR Routine Abdominal Exam Present soft Routine Extremities Exam Comments: no pedal edema. Routine Neurological Exam Present alert oriented to person and place but not to time. Urinary Catheter Management Straight: Cath placed during this visit: yes, but has since been removed by the nurse Insertion date: 07/16/18 Insertion time: 22:12 Removal date: 07/16/18 Removal time: 22:15 Results Labs CBC & Chem 7: 07/23/18 04:43 07/23/18 04:43 Procedures Procedures: none Assessment and Plan Plan 1. Altered mental status/Hypertensive urgency history of CVA. Initially improved now disoriented with episodes of agitation history of memory loss. This could be dementia. Head CT negative for acute process May be hypertensive encephalopathy Status post hydralazine and labetalol in the ED Monitor blood pressure closely; will increase Cozaar and continue to monitor. urine drug screen neg MRI neg Neurology reconsulted; MRI brain repeated with no acute abnormality. TSH, B12 and RPR unremarkable . Repeat UA unremarkable EEG with possible encephalopathy and no epileptiform activity. positive RORY with elevated ESR- RORY positive panel pending- f.u with rheumatology as outpatient. previously d/w and cleared for discharge. 2. Elevated troponin 2/2 above no CP EKG shows sinus rhythm with PVCs, pulse 91, personally reviewed. No ST segment elevation or depression. Allergic to aspirin 3. Diabetes mellitus Holding home antihyperglycemic's Sliding-scale insulin Monitor blood glucose 4. Hyperlipidemia/IBS Continue home Linzess and statin 5. hypertension; partly due to anxiety Cozaar was increased to 100 mg daily/ continue Metoprolol- increased Norvasc to 10 mg daily -continue to monitor and adjust the regimen as needed. 6. Gout exacerbation. Uric acid 7. Improving Discharge Planning: SNF when arrangements made. f/u; pcp, rheumatology and neurology. previoulsy d/w the patient, and case managemenet. previously d/w the daughter. time spent 35 min. Progress Note: Quality VTE Deep Vein Thrombosis/Pulmonary Embolism Present on Admission: No
--- NOTE | 2018-07-27 12:47 | PQ ---
Physician Query Response Document PATIENT: Herlinda Jimenez : 1945 ADMIT DATE: 07/14/2018 12:50 AM DISCH DATE: 07/25/2018 4:14 PM RESPONDING PROVIDER #: [email or web address] QUERY TEXT: Rule Out Condition Clarification Pt has documented dementia noted as ?rule out? or similar terminology such as suspected, probable, et c. Please clarify status of this condition: -Patient has condition -Condition was ruled out Please provide corresponding diagnosis for patient's clinical picture and associated treatment -Patient had condition which is now resolved -Other (please specify) -Clinically unable to determine -Unknown If you have any additional questions/comments and/or concerns, please do not hesitate to reach out to the CDI/Coding Hotline, Ext. [phone]. The patient's Clinical Indicators include: From Dr. Williamson's Progress Note 07/20/18: Plan: will repeat mri brain,eeg. labs for reversible causes of dementia completed-b12,tsh t4,rpr ammonia ok Vitamin B12 level on 07/17/18 of 324. TSH on 07/13/18 1.600. T4 not found in Labs. RPR nonreactive . Same section of same report: no signs of infection. ?what is pt's baseline-some dementia??if so certainly can worsen in hospital and have delirium. Attending's Progress Notes: This could be dementia. Head CT negative for acute process May be hypertensive encephalopathy Query created by: Maeve Garcia on 07/26/2018 12:06 PM RESPONSE TEXT: Likely dementia. Electronically signed by: Doron Garner MD 07/27/2018 12:43 PM
== END 2018-07-25 16:14 ==
LOC: NEDA 18:52 → NEPC 18:52 → OBSVTOIN 07-14 00:50 → HIMC 07-14 04:30 → N07 07-15 04:28
PROVIDERS: ADMIT Internal Medicine; ATTEND Internal Medicine